=== PATIENT | male | born 1935 | race Caucasian/White ===

== ENCOUNTER → 2020-03-07 10:46 | Outpatient (BNVA) | payer MEDICARE, OTHER, SELFPAY | PROVIDERS: PCP Internal Medicine; Referring Provider Internal Medicine; Visit Provider Surgery | DX: Z45.018 Encounter for adjustment and management of other part of cardiac pacemaker (principal) | CPT/HCPCS: 93288; 99212 ==

== ENCOUNTER 2020-03-24 06:51 | Outpatient (REF) | payer MEDICARE, OTHER, SELFPAY ==
[2020-03-24 07:58] LABS: MANUAL DIFF FLAG NO
[2020-03-24 08:12] LABS: Basophils Percent Auto 0.2 % (0-2); Eosinophils Absolute Auto 0.2 X10*3/uL (0.0-0.4); Eosinophils Percent Auto 3.1 % (0-4); Hematocrit 39.5 % (42-52); Imm Gran Abs Auto 0.01 X10*3/uL (0.00-0.03); Imm Gran Pct Auto 0.2 % (0.0-0.4); Lymphocytes Absolute Auto 1.4 X10*3/uL (1.2-4.9); Mean Corpuscular HGB Conc 32.9 g/dl (31.0-36.0); Mean Corpuscular Hemoglobin 31.4 pg (27.0-33.0); Mean Corpuscular Volume 95.4 fL (80-98); Mean Platelet Volume 11.3 fL (9.4-12.4); Monocytes Absolute Auto 0.5 X10*3/uL (0.1-1.2); Monocytes Percent Auto 8.8 % (2-11); Neutrophils Absolute Auto 3.2 X10*3/uL (2.0-8.3); Neutrophils Percent Auto 61.7 % (45-73); Platelet Count 169 X10*3/uL (160-400); Red Blood Count 4.14 X10*6/uL (4.60-5.80); Red Cell Distribution Width 12.4 % (11.0-16.0); White Blood Count 5.2 X10*3/uL (4.8-10.8)
[2020-03-24 08:59] LABS: Alanine Aminotransferase 22 U/L (0-40); Alkaline Phosphatase 85 U/L (39-117); Anion Gap 12 (12-20); Aspartate Amino Transferase 26 U/L (5-37); Bilirubin Total 0.7 mg/dL (0.0-1.0); Blood Urea Nitrogen 29 mg/dL (9-16); Calcium 8.9 mg/dL (8.4-10.2); Carbon Dioxide 28 mmol/L (22-29); Chloride 102 mmol/L (96-108); Cholesterol 180 mg/dL; Estimated Glomerular Filt Rate 42; Glucose Random 89 mg/dL (60-115); HDL Cholesterol 53 mg/dL; LDL Cholesterol Calculated 109 mg/dl; Potassium 4.2 mmol/l (3.3-5.1); Sodium 138 mmol/L (135-145); Total Protein 6.6 g/dL (6.5-8.0); Triglycerides 93 mg/dL
[2020-03-24 09:43] LABS: Folate 15.1 ng/mL (> or = 4.0); Vitamin B12 1032 pg/mL (200-900)
[2020-03-24 10:18] LABS: T4 Thyroxine 7.3 ug/dL (4.5-12.0); Thyroid Stimulating Hormone 1.14 mIU/mL (0.32-4.0)
== END 2020-03-24 06:52 | disposition home or self-care (01) ==
LOC: HO.LAB 06:51
PROVIDERS: Visit Provider Internal Medicine
DX: I12.9 Hypertensive chronic kidney disease with stage 1 through stage 4 chronic kidney disease, or unspecified chronic kidney disease (principal); N18.30 Chronic kidney disease, stage 3 unspecified; N40.0 Benign prostatic hyperplasia without lower urinary tract symptoms
CPT/HCPCS: 36415; 80053; 80061; 82607; 82746; 84436; 84443; 85025

== ENCOUNTER → 2020-04-07 13:07 | Outpatient (BNVA) | payer MEDICARE, OTHER, SELFPAY | PROVIDERS: PCP Internal Medicine; Referring Provider Internal Medicine; Visit Provider Nurse Practitioner Family | DX: I48.92 Unspecified atrial flutter (principal); I10 Essential (primary) hypertension; Z86.79 Personal history of other diseases of the circulatory system; Z45.018 Encounter for adjustment and management of other part of cardiac pacemaker | CPT/HCPCS: 99212 ==

== ENCOUNTER → 2020-05-06 13:40 | Outpatient (BNVA) | payer MEDICARE, OTHER, SELFPAY | PROVIDERS: PCP Internal Medicine; Referring Provider Internal Medicine; Visit Provider Internal Medicine | DX: I48.0 Paroxysmal atrial fibrillation (principal); I10 Essential (primary) hypertension; Z95.0 Presence of cardiac pacemaker | CPT/HCPCS: 99212 ==

== ENCOUNTER 2020-05-22 10:25 | Outpatient (REF) | payer MEDICARE, OTHER, SELFPAY ==
[2020-05-22 11:01] LABS: MANUAL DIFF FLAG NO
[2020-05-22 11:06] LABS: Basophils Percent Auto 0.2 % (0-2); Eosinophils Absolute Auto 0.1 X10*3/uL (0.0-0.4); Eosinophils Percent Auto 1.1 % (0-4); Hematocrit 40.7 % (42-52); Hemoglobin 13.7 g/dl (14.0-18.0); Imm Gran Abs Auto 0.01 X10*3/uL (0.00-0.03); Imm Gran Pct Auto 0.2 % (0.0-0.4); Lymphocytes Absolute Auto 1.2 X10*3/uL (1.2-4.9); Lymphocytes Percent Auto 26.5 % (20-40); Mean Corpuscular HGB Conc 33.7 g/dl (31.0-36.0); Mean Corpuscular Hemoglobin 31.9 pg (27.0-33.0); Mean Corpuscular Volume 94.9 fL (80-98); Monocytes Absolute Auto 0.4 X10*3/uL (0.1-1.2); Monocytes Percent Auto 9.3 % (2-11); Neutrophils Absolute Auto 2.9 X10*3/uL (2.0-8.3); Neutrophils Percent Auto 62.7 % (45-73); Platelet Count 160 X10*3/uL (160-400); Red Blood Count 4.29 X10*6/uL (4.60-5.80); Red Cell Distribution Width 12.1 % (11.0-16.0); White Blood Count 4.6 X10*3/uL (4.8-10.8)
[2020-05-22 11:23] LABS: Anion Gap 9 (12-20); Blood Urea Nitrogen 26 mg/dL (9-16); Calcium 9.4 mg/dL (8.4-10.2); Carbon Dioxide 31 mmol/L (22-29); Chloride 100 mmol/L (96-108); Estimated Glomerular Filt Rate 40; Glucose Random 116 mg/dL (60-115); Potassium 3.8 mmol/l (3.3-5.1); Sodium 136 mmol/L (135-145)
== END 2020-05-22 10:26 | disposition home or self-care (01) ==
LOC: HO.LAB 10:25
PROVIDERS: PCP Internal Medicine; Visit Provider Nurse Practitioner Family
DX: I48.0 Paroxysmal atrial fibrillation (principal)
CPT/HCPCS: 36415; 80048; 85025

== ENCOUNTER 2020-07-23 07:39 | Outpatient (REF) | payer MEDICARE, SELFPAY ==
[2020-07-23 08:38] LABS: MANUAL DIFF FLAG NO
[2020-07-23 08:45] LABS: Basophils Percent Auto 0.2 % (0-2); Eosinophils Absolute Auto 0.1 X10*3/uL (0.0-0.4); Eosinophils Percent Auto 2.4 % (0-4); Hematocrit 40.3 % (42-52); Hemoglobin 13.9 g/dl (14.0-18.0); Imm Gran Abs Auto 0.01 X10*3/uL (0.00-0.03); Imm Gran Pct Auto 0.2 % (0.0-0.4); Immature Retic Fraction 4.3 % (2.3-13.4); Lymphocytes Absolute Auto 1.2 X10*3/uL (1.2-4.9); Lymphocytes Percent Auto 26.6 % (20-40); Mean Corpuscular HGB Conc 34.5 g/dl (31.0-36.0); Mean Corpuscular Volume 92.6 fL (80-98); Mean Platelet Volume 11.8 fL (9.4-12.4); Monocytes Absolute Auto 0.4 X10*3/uL (0.1-1.2); Monocytes Percent Auto 8.6 % (2-11); Neutrophils Absolute Auto 2.9 X10*3/uL (2.0-8.3); Platelet Count 153 X10*3/uL (160-400); Red Blood Count 4.35 X10*6/uL (4.60-5.80); Red Cell Distribution Width 12.1 % (11.0-16.0); Retic HGB Equivalent 36.5 pg (30.0-35.0); Reticulocyte Percent 1.1 % (0.5-1.8); Reticulocytes Absolute 0.047 X10*6/uL (0.026-0.095); White Blood Count 4.6 X10*3/uL (4.8-10.8)
[2020-07-23 09:21] LABS: Alanine Aminotransferase 19 U/L (0-40); Alkaline Phosphatase 82 U/L (39-117); Anion Gap 13 (12-20); Aspartate Amino Transferase 23 U/L (5-37); Bilirubin Total 0.5 mg/dL (0.0-1.0); Blood Urea Nitrogen 38 mg/dL (9-16); Calcium 9.1 mg/dL (8.4-10.2); Carbon Dioxide 27 mmol/L (22-29); Chloride 102 mmol/L (96-108); Estimated Glomerular Filt Rate 42; Glucose Random 88 mg/dL (60-115); Iron 84 mcg/dL (45-160); Percent Iron Saturation 25 % (15-50); Sodium 138 mmol/L (135-145); Total Iron Binding Capacity 334 mcg/dL (228-428); Total Protein 6.6 g/dL (6.5-8.0); Unsaturated Iron Binding 250 ug/dL
[2020-07-23 09:42] LABS: Ferritin 126 ng/mL (20-250); Vitamin D 25-OH Total 51.2 ng/mL (>30)
[2020-07-24 21:49] LABS: Folate 18.5 ng/mL (> or = 4.0); Vitamin B12 1031 pg/mL (200-900)
== END 2020-07-23 07:40 | disposition home or self-care (01) ==
LOC: HO.LAB 07:39
PROVIDERS: PCP Internal Medicine; Visit Provider Internal Medicine
DX: D64.9 Anemia, unspecified (principal); N18.32 Chronic kidney disease, stage 3b
CPT/HCPCS: 36415; 80053; 82306; 82607; 82728; 82746; 83540; 85025; 85045

== ENCOUNTER 2020-08-28 11:49 | Outpatient (REF) | payer MEDICARE, OTHER, SELFPAY ==
[2020-08-28 13:59] LABS: Albumin Level 4.3 g/dL (3.5-5.0); Anion Gap 15 (12-20); Blood Urea Nitrogen 32 mg/dL (9-16); Calcium 9.1 mg/dL (8.4-10.2); Carbon Dioxide 26 mmol/L (22-29); Chloride 101 mmol/L (96-108); Estimated Glomerular Filt Rate 43; Magnesium 2.3 mg/dL (1.6-2.6); Phosphorus 3.2 mg/dL (2.7-4.5); Potassium 4.1 mmol/L (3.3-5.1); Sodium 138 mmol/L (135-145)
== END 2020-08-28 11:50 | disposition home or self-care (01) ==
LOC: HO.LAB 11:49
PROVIDERS: PCP Internal Medicine; Visit Provider Internal Medicine Hypertension Specialist
DX: I13.10 Hypertensive heart and chronic kidney disease without heart failure, with stage 1 through stage 4 chronic kidney disease, or unspecified chronic kidney disease (principal); N18.9 Chronic kidney disease, unspecified
CPT/HCPCS: 36415; 80051; 82040; 82310; 82565; 83735; 84100; 84520

== ENCOUNTER → 2020-10-28 08:31 | Outpatient (BNVA) | payer MEDICARE, OTHER, SELFPAY | PROVIDERS: Visit Provider Urology | DX: D49.511 Neoplasm of unspecified behavior of right kidney (principal); N40.1 Benign prostatic hyperplasia with lower urinary tract symptoms; R35.0 Frequency of micturition | CPT/HCPCS: 51798; 99212 ==

== ENCOUNTER → 2020-11-10 14:41 | Outpatient (BNVA) | payer MEDICARE, OTHER, SELFPAY | PROVIDERS: PCP Internal Medicine; Referring Provider Internal Medicine; Visit Provider Internal Medicine | DX: I48.0 Paroxysmal atrial fibrillation (principal); I10 Essential (primary) hypertension; Z95.0 Presence of cardiac pacemaker | CPT/HCPCS: 93005; 99212 ==

== ENCOUNTER 2020-12-08 07:47 | Day surgery (SDC) | payer MEDICARE, OTHER, SELFPAY ==
[2020-12-02 10:31] VITALS: BMI 25.0
--- NOTE | 2020-12-02 14:45 | P.CONAN_ITS ---
Documented by User: Sandra Bender 12/02/20 14:52 HPI - Anesthesia Eval Consult details Narrative: 85yo M for Laser Ablation Prostate w/Green Light Per cardiology: Low to intermediate cardiac risk for urological procedrue. Last stress Mibi from 2019 shows normal perfusion. Last echocardiogram from 2019 shows LVEF of 55-60% and no obvious valvular pathology. May hold Xarelto starting 4 days prior to procedure. Pacer in situ (2nd deg HB) PMFSH Active Problems Active Problems: All Active Problems (Updated 12/02/20 @ 10:33 by Victoria Jimenez) Essential hypertension (Acute) Anemia (Acute) Annual physical exam (Acute) Impacted cerumen, bilateral (Acute) Preoperative cardiovascular examination (Acute) Neoplasm of right kidney (Acute) BPH (benign prostatic hyperplasia) (Acute) PAF (paroxysmal atrial fibrillation) (Acute) SSS (sick sinus syndrome) (Acute) Pulmonary nodule (Acute) CKD (chronic kidney disease) (Acute) Pacemaker (Acute) Past Medical History Medical History Atrial fibrillation Blood type O+ BPH (benign prostatic hyperplasia) CKD (chronic kidney disease) COVID-19 vaccine series completed Diverticulitis Erectile dysfunction History of blood transfusion History of cataract History of gastric ulcer Kidney stones 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 Mother Diabetes Cancer Son No problems noted. Son No problems noted. Surgical History Surgical History H/O lithotripsy History of bilateral cataract extraction History of esophagogastroduodenoscopy (EGD) History of prostate surgery History of total left knee replacement History of total right knee replacement Hx of cataract surgery Hx of tonsillectomy Social History Social History Alcohol intake: never Patient Tobacco Use Status: Never used Tobacco Second Hand Smoke Exposure: No Use of substances other than those prescribed or required for medical reasons: No Are you DNR?: No Advance Directives: No Advance Directives Information Provided: No Advance Directives on File: No Meds Allergies Allergy/AdvReac Type Severity Reaction Status Date / Time oxycodone Allergy Unknown hives Verified 12/08/20 08:05 aspirin AdvReac Intermediate bleeding Verified 12/08/20 08:05 Home Medications Medication Instructions Recorded Confirmed Last Taken Type cyanocobalamin (vitamin B-12) 250 250 mcg PO DAILY 04/01/20 12/02/20 Unknown History mcg lozenges multivitamin 1 tab PO DAILY 04/01/20 12/02/20 Unknown History Exam Exam Date and Time: December 02, 2020 1445 Height,Weight and Vital Signs: Height 6 ft Weight 83.915 kg Pertinent Lab Results Pertinent Lab Results: Laboratory Tests 07/23/20 08/28/20 07:55 12:06 WBC 4.6 L Hgb 13.9 L Hct 40.3 L Plt Count 153 L Sodium 138 Potassium 4.1 Chloride 101 Carbon Dioxide 26 BUN 32 H Creatinine 1.53 H Narrative Narrative: Pacer Interr 11/10/20 Dual-chamber device. DDIR. Battery status 12 years. Normal lead parameters. Atrial tachycardia/atrial fibrillation burden is 4.1%, but he is in atrial fibrillation at this time. Episodes are fairly short longest is about 3 hours or so. Today, he went into atrial fibrillation few hours ago. Overall, normal function. EKG 10/2020 atrial fibrillation, V paced at 64/min. Last stress Mibi from 2019 shows normal perfusion. Last echocardiogram from 2019 shows LVEF of 55-60% and no obvious valvular pathology. 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 Mother Diabetes Cancer Son No problems noted. Son No problems noted. Surgical History Surgical History H/O lithotripsy History of bilateral cataract extraction History of esophagogastroduodenoscopy (EGD) History of prostate surgery History of total left knee replacement History of total right knee replacement Hx of cataract surgery Hx of tonsillectomy Social History Social History Alcohol intake: never Patient Tobacco Use Status: Never used Tobacco Second Hand Smoke Exposure: No Use of substances other than those prescribed or required for medical reasons: No Are you DNR?: No Advance Directives: No Advance Directives Information Provided: No Advance Directives on File: No Meds Allergies Allergy/AdvReac Type Severity Reaction Status Date / Time oxycodone Allergy Unknown hives Verified 12/08/20 08:05 aspirin AdvReac Intermediate bleeding Verified 12/08/20 08:05 Home Medications Medication Instructions Recorded Confirmed Last Taken Type cyanocobalamin (vitamin B-12) 250 250 mcg PO DAILY 04/01/20 12/02/20 Unknown History mcg lozenges multivitamin 1 tab PO DAILY 04/01/20 12/02/20 Unknown History Exam Airway Mallampati Class: II TM Dist: >3cm Neck ROM: Limited Assessment and Plan Assessment Anesthesia Assessment: Anesthesia Plan Discussed and Chart Reviewed Final Anesthetic Review NPO: Yes ASA Class: III Final Preanesthetic Review: No Changes in Pt Med Stat, Meds/Allgs Chart Reviewed, Consent Obtained/Reviewed and Anes Risks/Benef Reviewed Patient Risk: Intermediate Procedure Risk: Low Assessment/Block/Sedation in SS: Assess/Block/Sedation-SS Anesthetic Plan Anesthetic Plan: GA Disposition: Standard PACU
[2020-12-08] VITALS (12 sets, daily range): BP systolic 117–145; BP diastolic 55–68; PULSE 60–66; RESP 7–20; TEMP 36.3–36.8; O2SAT 92–98
[2020-12-08] MEDS: Lactated Ringers 1,000 ML 50 ML IVCONT (08:40)
[2020-12-08] MEDS: levoFLOXacin 500 MG TABLET PO (08:43)
--- NOTE | 2020-12-08 09:29 | P.CONAN_ITS ---
[facility] Active Problems Active Problems: All Active Problems (Updated 12/02/20 @ 14:50 by Sandra lafleur) Essential hypertension (Acute) Anemia (Acute) Annual physical exam (Acute) Impacted cerumen, bilateral (Acute) Preoperative cardiovascular examination (Acute) Neoplasm of right kidney (Acute) BPH (benign prostatic hyperplasia) (Acute) PAF (paroxysmal atrial fibrillation) (Acute) SSS (sick sinus syndrome) (Acute) Pulmonary nodule (Acute) CKD (chronic kidney disease) (Acute) Pacemaker (Acute) Past Medical History Medical History Atrial fibrillation Blood type O+ BPH (benign prostatic hyperplasia) CKD (chronic kidney disease) COVID-19 vaccine series completed Diverticulitis Erectile dysfunction History of blood transfusion History of cataract History of gastric ulcer Kidney stones 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 Mother Diabetes Cancer Son No problems noted. Son No problems noted. Surgical History Surgical History H/O lithotripsy History of bilateral cataract extraction History of esophagogastroduodenoscopy (EGD) History of prostate surgery History of total left knee replacement History of total right knee replacement Hx of cataract surgery Hx of tonsillectomy Social History Social History Alcohol intake: never Patient Tobacco Use Status: Never used Tobacco Second Hand Smoke Exposure: No Use of substances other than those prescribed or required for medical reasons: No Are you DNR?: No Advance Directives: No Advance Directives Information Provided: No Advance Directives on File: No Meds Allergies Allergy/AdvReac Type Severity Reaction Status Date / Time oxycodone Allergy Unknown hives Verified 12/08/20 08:05 aspirin AdvReac Intermediate bleeding Verified 12/08/20 08:05 Active Medications: Current Medications Generic Name Dose Route Start Last Admin Trade Name Freq PRN Reason Stop Dose Admin Acetaminophen 650 mg 12/08/20 09:21 Acetaminophen 325 Mg Tablet PO ONCE PRN Pain, Mild (Pain Scale 1-3) Fentanyl 50 mcg 12/08/20 09:21 Fentanyl Citrate/Pf 100 Mcg/2 Ml Vial IVPUSH Q5M PRN Pain, Severe (Pain Scale 7-10) Lactated Ringer's 1,000 mls @ 50 mls/hr 12/08/20 08:00 12/08/20 08:40 Lr IVCONT 50 mls/hr .Q20H KAREN Administration Ondansetron HCl 4 mg 12/08/20 09:21 Ondansetron Hcl 4 Mg/2 Ml Vial IVPUSH ONCE PRN Nausea and Vomiting Oxycodone HCl 5 mg 12/08/20 09:21 Oxycodone Hcl Immed Release 5 Mg Tablet PO ONCE PRN Pain, Severe (Pain Scale 7-10) Home Medications Medication Instructions Recorded Confirmed Last Taken Type cyanocobalamin (vitamin B-12) 250 250 mcg PO DAILY 04/01/20 12/02/20 Unknown History mcg lozenges multivitamin 1 tab PO DAILY 04/01/20 12/02/20 Unknown History Exam Exam Date and Time: December 08, 2020 0929 Height,Weight and Vital Signs: Height 6 ft Weight 83.915 kg Last Vital Signs Temp 97.8 F 12/08/20 08:11 Pulse 66 12/08/20 08:11 Resp 16 12/08/20 08:11 BP 145/63 H 12/08/20 08:11 Pulse Ox 98 12/08/20 08:11 Airway Mallampati Class: II TM Dist: >3cm Neck ROM: Full Assessment and Plan Assessment Anesthesia Assessment: Anesthesia Plan Discussed and Chart Reviewed Final Anesthetic Review NPO: Yes ASA Class: III Final Preanesthetic Review: No Changes in Pt Med Stat, Meds/Allgs Chart Reviewed, Consent Obtained/Reviewed and Anes Risks/Benef Reviewed Patient Risk: Intermediate Procedure Risk: Low Anesthetic Plan Anesthetic Plan: GA Disposition: Standard PACU
--- NOTE | 2020-12-08 09:44 | MHC.SHP ---
Pre-Procedural Eval Section A Date of Service: 12/08/20 Section B Chief Complaint: benign prostatic hyperlasia Details of Present Illness: BPH progressive. Prior TURP Relevant Family History (Specify if Yes): No Relevant Social History: None Present Medications: see Short Stay Collaborative assessment Medical History: No relevant PMH History of Previous Operations: Relevant previous surgery/procedure and date(s) ( prior TURP) Allergies: Allergies Allergy/AdvReac Type Severity Reaction Status Date / Time oxycodone Allergy Unknown hives Verified 12/08/20 08:05 aspirin AdvReac Intermediate bleeding Verified 12/08/20 08:05 Review of Systems Sugical H&P ROS: Negative: Constitution, Cardiovascular, Respiratory, Neurological, Psychiatric, Hem-Onc, Allergic/Immunologic, Gastrointestinal, Genitourinary, Musculoskeletal, Integumentary, Endocrine and Eyes/Ears/Nose/Throat Exam Surgical H&P Exam: Normal: HEENT, Normal: Heart, Normal: Lungs, Normal: Extremities, Normal: Abdomen, Normal: Skin and Normal: Neurological Plan Diagnosis/Plan: Unchanged ( GreenLight laser prostate) I have reviewed the history and physical and performed a pertinent physical examination on my patient. No changes have occurred unless specified.
--- NOTE | 2020-12-08 10:57 | P.OP_ITS ---
Operative Note Operative Note Date of Service: 12/08/20 Narrative: PreOperative Diagnosis: Bladder outlet obstruction Post Operative Diagnosis: Bladder outlet obstruction Procedure: GreenLight laser enucleation of the prostate Surgeon: Dr Serjio Ch Anesthesia: General Indications for procedure: History of bladder outlet obstruction. Prior TURP 15 years ago Procedure: After informed consent was verified the patient was brought to the operating room and placed in a supine position. Anesthesia was administered per protocol. Patient was placed in modified dorsal lithotomy position and prepped and draped in a sterile fashion. Safety pause time-out was confirmed. Antibiotics have been given. Twenty-four Upper Sorbian laser cystoscope was inserted per urethra. No abnormalities found the anterior posterior urethra. The bladder was filled on both ureteric orifices were seen in normal position away from our area of interest. Regrowth was seen on the patient's left side. There was also high riding bladder neck secondary to contracture from the prior TURP. No median lobe. Using a GreenLight laser settings of 80 w incisions were made at the 5 and 7 o'clock position. They were brought from the bladder neck down to the level of the veru. These opened up the constriction that was seen from the prior TURP. We started with the patient's recurrent left lateral lobe. Firstly the 05:00 o'clock groove was further developed. This was moved in the lateral position to undermine the tissue on the lateral side. Focus was then placed on the laser at the 1 o'clock position in developing a secondary groove down to the level of bladder fibers. The intervening tissue between these 2 grooves was removed with a combination of enucleation ablation working from the apex toward the bladder neck. When this was completed debris and pieces of prostate removed from the bladder. Both ureteric orifices were reviewed again in shown to be patent in away from any areas of energy damage. The apical area was reviewed in any stray ooze was controlled. A 22 Upper Sorbian 30 cc balloon Peres catheter was placed over stylet into the bladder. Clear efflux was obtained. 30 cc was placed in the balloon and gentle traction was placed. A snap was used to hold tension once the patient will be moved and transported. Once transportation its finish this novel be removed. A belladonna and opiate suppository was placed for postprocedure pain management. He tolerated procedure well was extubated in the operating and transferred in a stable condition to the recovery area. Total laser energy 59,000 kilojoules. Laser time 9 minutes Pathology: Prostate tissue Drains: Peres catheter
[2020-12-08] MEDS: Acetaminophen 325 MG TABLET 650 MG PO (11:18)
[2020-12-08] MEDS: fentaNYL citrate/PF 100 MCG/2 ML VIAL 50 MCG IVPUSH (11:53)
[2020-12-08] MEDS: Phenazopyridine HCL 100 MG TABLET PO (12:13)
[2020-12-08] MEDS: traMADoL HCL 50 MG TABLET PO (12:14)
== END 2020-12-08 13:35 | disposition home or self-care (01) ==
PROVIDERS: PCP Internal Medicine; Visit Provider Urology
PROC: (CPT 52648; principal; 2020-12-08 10:00)
DX: N40.1 Benign prostatic hyperplasia with lower urinary tract symptoms (principal); N13.8 Other obstructive and reflux uropathy; R35.0 Frequency of micturition; N18.30 Chronic kidney disease, stage 3 unspecified; Z85.528 Personal history of other malignant neoplasm of kidney; Z87.442 Personal history of urinary calculi; I48.0 Paroxysmal atrial fibrillation; I10 Essential (primary) hypertension; I49.5 Sick sinus syndrome; Z95.0 Presence of cardiac pacemaker; Z79.01 Long term (current) use of anticoagulants; Z79.899 Other long term (current) drug therapy; Z88.0 Allergy status to penicillin
CPT/HCPCS: 52648; J1100; J2405; J3010

== ENCOUNTER → 2020-12-11 11:30 | Outpatient (BNVA) | payer MEDICARE, OTHER, SELFPAY | PROVIDERS: PCP Internal Medicine | DX: N40.1 Benign prostatic hyperplasia with lower urinary tract symptoms (principal); R35.0 Frequency of micturition | CPT/HCPCS: 51700; 51798; 99212 ==

== ENCOUNTER 2020-12-18 10:50 | Outpatient (REF) | payer MEDICARE, OTHER, SELFPAY ==
[2020-12-18 12:20] LABS: Hematocrit 40.3 % (42-52); Hemoglobin 13.7 g/dl (14.0-18.0); Mean Corpuscular Hemoglobin 31.4 pg (27.0-33.0); Mean Corpuscular Volume 92.2 fL (80-98); Mean Platelet Volume 11.1 fL (9.4-12.4); Platelet Count 175 X10*3/uL (160-400); Red Blood Count 4.37 X10*6/uL (4.60-5.80); Red Cell Distribution Width 12.4 % (11.0-16.0); White Blood Count 7.2 X10*3/uL (4.8-10.8)
[2020-12-18 12:23] LABS: INTERNATIONAL NORM RATIO 1.3 (0.9-1.1); Prothrombin Time 15.4 SEC (9.9-13.0)
[2020-12-18 12:38] LABS: Anion Gap 17 (12-20); Blood Urea Nitrogen 28 mg/dL (9-16); Calcium 9.1 mg/dL (8.4-10.2); Carbon Dioxide 22 mmol/L (22-29); Chloride 101 mmol/L (96-108); Estimated Glomerular Filt Rate 36; Glucose Random 105 mg/dL (60-115); Sodium 136 mmol/L (135-145)
[2020-12-18 12:54] LABS: Ferritin 229 ng/mL (20-250)
[2020-12-18 16:23] LABS: Glucose Urine UA NEG (NEG); Nitrite Urine POS (NEG); PH 5.5 (5.0-8.0); Specific Gravity - Urine 1.025 (1.005-1.025); UACC Culture Trigger YES; Urine Blood 3+ (NEG); Urine Ketones NEG (NEG); Urine Protein 3+ MG/DL (NEG-TRACE)
[2020-12-18 16:32] LABS: Leukocyte Esterase Urine 3+ (NEG)
[2020-12-18 16:33] LABS: Appearance Urine TURBID; Color Urine RED
[2020-12-18 16:34] LABS: Bacteria Urine 2+ /LPF; RBC Urine TNTC /HPF (0); WBC Urine TNTC /HPF (0-4)
== END 2020-12-18 10:51 | disposition home or self-care (01) ==
LOC: HO.LAB 10:50
PROVIDERS: PCP Physician Assistant; Visit Provider Physician Assistant
DX: R31.0 Gross hematuria (principal); I10 Essential (primary) hypertension; R30.0 Dysuria
CPT/HCPCS: 36415; 80048; 81001; 81003; 82728; 85027; 85610; 87086

== ENCOUNTER → 2020-12-23 11:30 | Outpatient (BNVA) | payer MEDICARE, OTHER, SELFPAY | PROVIDERS: PCP Physician Assistant | DX: N40.1 Benign prostatic hyperplasia with lower urinary tract symptoms (principal); R35.0 Frequency of micturition; N39.0 Urinary tract infection, site not specified; Z79.899 Other long term (current) drug therapy | CPT/HCPCS: 99212 ==

== ENCOUNTER → 2021-01-29 11:42 | Outpatient (BNVA) | payer MEDICARE, OTHER, SELFPAY | PROVIDERS: PCP Physician Assistant; Visit Provider Urology | DX: N39.0 Urinary tract infection, site not specified (principal); N40.1 Benign prostatic hyperplasia with lower urinary tract symptoms; R35.0 Frequency of micturition | CPT/HCPCS: 99212 ==

== ENCOUNTER 2021-03-02 07:39 | Outpatient (REF) | payer MEDICARE, OTHER, SELFPAY ==
[2021-03-02 07:58] LABS: MANUAL DIFF FLAG NO
[2021-03-02 08:30] LABS: Basophils Percent Auto 0.2 % (0-2); Eosinophils Absolute Auto 0.1 X10*3/uL (0.0-0.4); Eosinophils Percent Auto 1.4 % (0-4); Hemoglobin 13.4 g/dl (14.0-18.0); Imm Gran Abs Auto 0.02 X10*3/uL (0.00-0.03); Imm Gran Pct Auto 0.4 % (0.0-0.4); Immature Retic Fraction 6.4 % (2.3-13.4); Lymphocytes Absolute Auto 1.1 X10*3/uL (1.2-4.9); Lymphocytes Percent Auto 22.3 % (20-40); Mean Corpuscular HGB Conc 33.5 g/dl (31.0-36.0); Mean Corpuscular Hemoglobin 31.2 pg (27.0-33.0); Mean Corpuscular Volume 93.2 fL (80-98); Mean Platelet Volume 11.7 fL (9.4-12.4); Monocytes Absolute Auto 0.5 X10*3/uL (0.1-1.2); Monocytes Percent Auto 9.1 % (2-11); Neutrophils Absolute Auto 3.4 X10*3/uL (2.0-8.3); Neutrophils Percent Auto 66.6 % (45-73); Platelet Count 170 X10*3/uL (160-400); Red Blood Count 4.29 X10*6/uL (4.60-5.80); Red Cell Distribution Width 12.9 % (11.0-16.0); Retic HGB Equivalent 34.5 pg (30.0-35.0); Reticulocytes Absolute 0.044 X10*6/uL (0.026-0.095); White Blood Count 5.1 X10*3/uL (4.8-10.8)
[2021-03-02 08:57] LABS: B Type Natriuretic Peptide 62 pg/mL (<100)
[2021-03-02 08:58] LABS: Alanine Aminotransferase 16 U/L (0-40); Alkaline Phosphatase 83 U/L (39-117); Anion Gap 11 (12-20); Aspartate Amino Transferase 20 U/L (5-37); Bilirubin Total 0.7 mg/dL (0.0-1.0); Blood Urea Nitrogen 27 mg/dL (9-16); Calcium 9.7 mg/dL (8.4-10.2); Carbon Dioxide 29 mmol/L (22-29); Chloride 106 mmol/L (96-108); Cholesterol 168 mg/dL; Estimated Glomerular Filt Rate 39; Glucose Random 101 mg/dL (60-115); HDL Cholesterol 47 mg/dL; Iron 86 mcg/dL (45-160); LDL Cholesterol Calculated 99 mg/dl; Percent Iron Saturation 26 % (15-50); Sodium 142 mmol/L (135-145); Total Iron Binding Capacity 337 mcg/dL (228-428); Total Protein 6.6 g/dL (6.5-8.0); Triglycerides 110 mg/dL; Unsaturated Iron Binding 251 ug/dL
[2021-03-02 09:22] LABS: Ferritin 92 ng/mL (20-250); Free T4 (Free Thyroxine) 1.18 ng/dL (0.71-1.85); Thyroid Stimulating Hormone 1.42 uIU/mL (0.32-4.0)
[2021-03-02 09:27] LABS: Folate 18.7 ng/mL (> or = 4.0); Vitamin B12 1274 pg/mL (200-900)
[2021-03-04 03:06] LABS: Calcium (PTHI) 9.8 mg/dL (8.6-10.3); PTHI 30 pg/mL (14-64)
== END 2021-03-02 07:40 | disposition home or self-care (01) ==
LOC: HO.LAB 07:39
PROVIDERS: PCP Internal Medicine; Visit Provider Internal Medicine Hypertension Specialist
DX: I12.9 Hypertensive chronic kidney disease with stage 1 through stage 4 chronic kidney disease, or unspecified chronic kidney disease (principal); N18.31 Chronic kidney disease, stage 3a; E78.00 Pure hypercholesterolemia, unspecified
CPT/HCPCS: 36415; 80053; 80061; 82607; 82728; 82746; 83540; 83880; 83970; 84439; 84443; 85025; 85045

== ENCOUNTER 2021-05-14 14:59 | Outpatient (REF) | payer MEDICARE, OTHER, SELFPAY ==
[2021-05-14 15:29] LABS: COVID-19 Test Negative (Negative); IDNOW Serial# 16C4AD1C
== END 2021-05-14 15:00 | disposition home or self-care (01) ==
LOC: HO.LAB 14:59
PROVIDERS: PCP Internal Medicine; Visit Provider Internal Medicine
DX: Z20.822 Contact with and (suspected) exposure to COVID-19 (principal)
CPT/HCPCS: 36415; 87635; C9803

== ENCOUNTER → 2021-06-18 09:59 | Outpatient (BNVA) | payer MEDICARE, OTHER, SELFPAY | PROVIDERS: PCP Internal Medicine; Referring Provider Internal Medicine; Visit Provider Internal Medicine | DX: I48.0 Paroxysmal atrial fibrillation (principal); I10 Essential (primary) hypertension; G47.33 Obstructive sleep apnea (adult) (pediatric); Z79.01 Long term (current) use of anticoagulants; Z95.0 Presence of cardiac pacemaker | CPT/HCPCS: 99212 ==

== ENCOUNTER 2021-08-20 12:28 | Emergency (ER) | payer MEDICARE, OTHER, SELFPAY ==
--- NOTE | ~2021-08-20 | XR_ITS ---
EXAMINATION: XR CHEST CLINICAL INFORMATION: Weakness. COMPARISON: Most recent chest radiograph dated 02/13/2020. TECHNIQUE: Frontal view of the chest was obtained. FINDINGS: Redemonstration of a left chest wall pacer with its leads in the right heart. No new airspace consolidation. No pleural effusion or pneumothorax. Stable cardiomediastinal silhouette. XR/XR chest 1V IMPRESSION: No acute cardiopulmonary findings.
--- NOTE | 2021-08-20 12:32 | ECG_ITS ---
Test Reason : chest tightness Blood Pressure : / mmHG Vent. Rate : 104 BPM Atrial Rate : 182 BPM P-R Int : 000 ms QRS Dur : 178 ms QT Int : 476 ms P-R-T Axes : 000 -66 109 degrees QTc Int : 625 ms Ventricular-paced rhythm Possible Atrial fibrillation Abnormal ECG When compared with ECG of 18-JAN-2020 11:13, Electronic ventricular pacemaker has replaced Sinus rhythm Referred By: Generic ED Physician Electronically Signed By:CHARLY SCHULTE MD
[2021-08-20 12:35] VITALS: BP 159/68; PULSE 66; RESP 18; TEMP 36.4; O2SAT 98; BMI 26.4
[2021-08-20 12:59] LABS: MANUAL DIFF FLAG NO
[2021-08-20 13:05] LABS: Basophils Percent Auto 0.1 % (0-2); Eosinophils Percent Auto 0.1 % (0-4); Hematocrit 41.4 % (42.0-52.0); Hemoglobin 13.9 g/dl (14.0-18.0); Imm Gran Abs Auto 0.03 X10*3/uL (0.00-0.03); Imm Gran Pct Auto 0.4 % (0.0-0.4); Lymphocytes Absolute Auto 0.9 X10*3/uL (1.2-4.9); Lymphocytes Percent Auto 13.6 % (20-40); Mean Corpuscular HGB Conc 33.6 g/dl (31.0-36.0); Mean Corpuscular Hemoglobin 31.4 pg (27.0-33.0); Mean Corpuscular Volume 93.7 fL (80.0-98.0); Mean Platelet Volume 11.7 fL (9.4-12.4); Monocytes Absolute Auto 0.4 X10*3/uL (0.1-1.2); Monocytes Percent Auto 5.6 % (2-11); Neutrophils Absolute Auto 5.5 x10*3/uL (2.0-8.3); Neutrophils Percent Auto 80.2 % (45-73); Platelet Count 166 X10*3/uL (160-400); Red Blood Count 4.42 X10*6/uL (4.60-5.80); Red Cell Distribution Width 12.8 % (11.0-16.0); White Blood Count 6.9 X10*3/uL (4.8-10.8)
[2021-08-20 13:18] LABS: COVID-19 Test Negative (Negative)
[2021-08-20 13:22] LABS: Troponin-I High Sensitivity 9.4 ng/L (<3.5-35.0)
[2021-08-20 13:23] LABS: Anion Gap 14 (12-20); Blood Urea Nitrogen 30 mg/dL (9-16); Calcium 10.2 mg/dL (8.4-10.2); Carbon Dioxide 27 mmol/L (22-29); Chloride 102 mmol/L (96-108); Creatinine Clr Calc Pharmacy 34.6; Estimated Glomerular Filt Rate 39; Glucose Random 188 mg/dL (60-115); Potassium 4.5 mmol/L (3.3-5.1); Sodium 138 mmol/L (135-145)
[2021-08-20 13:26] LABS: INTERNATIONAL NORM RATIO 2.1 (0.9-1.1); Prothrombin Time 24.2 SEC (9.9-13.0)
--- NOTE | 2021-08-20 16:26 | ED_ITS ---
HPI - General Adult General Chief complaint: General Medical Stated complaint: Multiple Complaints Time Seen by Provider: 08/20/21 16:26 Source: patient Limitations: no limitations History of Present Illness HPI narrative: This is an 85-year-old male who complains of weakness and chills today. He notes he has been somewhat weak recently but feels much worse today in terms of feeling chilled. He denies any fever. Called his primary care physician but could not be seen today. He denies any headache. He denies any chest pain, shortness of breath or cough. He does sometimes have shortness of breath with exertion but notes no change today. He denies abdominal pain. Denies any nausea vomiting. His bowel movements have been regular. He does get up to urinate at night and has had a prostate procedure in the past, but denies any dysuria. He denies any lower extremity swelling. He has had some tingling in his legs. Related Data Home Medications Medication Instructions Recorded Confirmed cyanocobalamin (vitamin B-12) 250 250 mcg PO DAILY 04/01/20 06/18/21 mcg lozenges multivitamin 1 tab PO DAILY 04/01/20 06/18/21 Previous Rx's Medication Instructions Recorded hydrochlorothiazide 12.5 mg tablet 12.5 mg PO DAILY 90 Days #90 tab 10/30/20 rivaroxaban 15 mg tablet (Xarelto) 15 mg PO DAILY #90 tab 07/17/21 tamsulosin 0.4 mg capsule 0.4 mg PO BEDTIME 30 Days #90 cap 08/11/21 Allergies Allergy/AdvReac Type Severity Reaction Status Date / Time oxycodone Allergy Unknown hives Verified 06/18/21 10:20 aspirin AdvReac Intermediate bleeding Verified 06/18/21 10:20 Review of Systems Review of Systems: Yes all other systems are reviewed and are negative Constitutional: Constitutional: Reports as per HPI, Reports chills, Reports fatigue and Denies fever(s) Eyes: Eyes: Reports as per HPI and Reports no additional eye complaints ENT: Reports system reviewed and no additional complaints, except as documented, Reports as per HPI, Denies nasal congestion, Denies nasal discharge and Denies sore throat Cardiovascular: Cardiovascular: Reports as per HPI, Denies chest pain and Denies dyspnea Respiratory: Respiratory: Reports as per HPI, Denies cough and Denies dyspnea Gastrointestinal: Gastrointestinal: Reports as per HPI, Denies abdominal pain, Denies diarrhea and Denies vomiting Genitourinary: Genitourinary: Reports as per HPI, Denies hematuria, Denies dysuria and Denies urinary frequency Musculoskeletal: Musculoskeletal: Reports no additional musculoskeletal complaints and Denies numbness Integumentary/Breasts: Skin/Breast: Reports as per HPI and Denies rash Neurologic: Reports as per HPI, Denies focal weakness, Denies numbness and Reports paresthesias Psychiatric: Psychiatric: Reports no additional psychiatric complaints and Reports as per HPI Endocrine: Endocrine: Reports no additional endocrine complaints, Reports as per HPI and Reports fatigue Hematologic/Lymphatic: Hematologic/Lymphatic: Reports no additional hematologic/lymphatic complaints, Reports as per HPI and Reports other (No peripheral edema) [facility] Past Medical History Medical History Atrial fibrillation Blood type O+ BPH (benign prostatic hyperplasia) CKD (chronic kidney disease) COVID-19 vaccine series completed Diverticulitis Erectile dysfunction History of blood transfusion History of cataract History of gastric ulcer Kidney stones 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 Mother Diabetes Cancer Son No problems noted. Son No problems noted. Social History Social History Housing: House Alcohol intake: never Patient Tobacco Use Status: Never used Tobacco e-Cigarette/Vaping Use: Never Used Second Hand Smoke Exposure: No Advance Directives: Yes Advance Directives on File: Yes Advance Directives Date on File: 12/08/20 service: No Current occupational status: retired Physical Exam ED Vital Signs: Vital Signs - 24 hr 08/20/21 12:35 08/20/21 16:35 08/20/21 18:52 Temperature 97.6 F 98.3 F Pulse Rate 66 69 66 Respiratory Rate 18 16 18 Blood Pressure 159/68 H 188/73 H 156/83 H Pulse Oximetry 98 98 98 BMI result Body Mass Index 26.4 Medical Decision Making MDM Narrative Medical decision making narrative: 85-year-old male with a feeling of weakness and chills. Patient appeared well on exam. Laboratory workup was unremarkable with no sign infection, anemia, electrolyte abnormality, or hypothyroidism. Patient is safe for outpatient follow-up Lab Data Lab results reviewed: Yes I reviewed the patient's lab results. Result diagrams: 08/20/21 12:48 08/20/21 12:48 Labs: Lab Results 08/20/21 08/20/21 08/20/21 Range/Units 12:48 12:48 12:48 WBC 6.9 (4.8-10.8) X10*3/uL RBC 4.42 L (4.60-5.80) X10*6/uL Hgb 13.9 L (14.0-18.0) g/dl Hct 41.4 L (42.0-52.0) % MCV 93.7 (80.0-98.0) fL MCH 31.4 (27.0-33.0) pg MCHC 33.6 (31.0-36.0) g/dl RDW 12.8 (11.0-16.0) % Plt Count 166 (160-400) X10*3/uL MPV 11.7 (9.4-12.4) fL Immature Gran % (Auto) 0.4 (0.0-0.4) % Neut % (Auto) 80.2 H (45-73) % Lymph % (Auto) 13.6 L (20-40) % [place] % (Auto) 5.6 (2-11) % Eos % (Auto) 0.1 (0-4) % Baso % (Auto) 0.1 (0-2) % Lymph # (Auto) 0.9 L (1.2-4.9) X10*3/uL [place] # (Auto) 0.4 (0.1-1.2) X10*3/uL Eos # (Auto) 0.0 (0.0-0.4) X10*3/uL Baso # (Auto) 0.0 (0.0-0.2) X10*3/uL Abs Immat Gran (auto) 0.03 (0.00-0.03) X10*3/uL Absolute Neuts (auto) 5.5 (2.0-8.3) x10*3/uL Absolute Nucleated RBC 0.000 (0.0-0.012) X10*3/uL Nucleated RBC % (auto) 0.0 (0.0-0.2) /100WBC PT 24.2 H (9.9-13.0) SEC INR 2.1 H (0.9-1.1) Sodium 138 (135-145) mmol/L Potassium 4.5 (3.3-5.1) mmol/L Chloride 102 (96-108) mmol/L Carbon Dioxide 27 (22-29) mmol/L Anion Gap 14 (12-20) BUN 30 H (9-16) mg/dL Creatinine 1.68 H (0.5-1.4) mg/dL Estim Creat Clear Calc 34.6 Estimated GFR 39 Random Glucose 188 H D (60-115) mg/dL Calcium 10.2 (8.4-10.2) mg/dL Troponin I High Sens (<3.5-35.0) ng/L TSH Cancelled Urine Color Urine Appearance Urine pH (5.0-8.0) Ur Specific [place] (1.005-1.025) Urine Protein (NEG-TRACE) MG/DL Urine Glucose (UA) (NEG) MG/DL Urine Ketones (NEG) MG/DL Urine Blood (NEG) Urine Nitrite (NEG) Ur Leukocyte Esterase (NEG) Urine RBC (0) /HPF Urine WBC (0-4) /HPF Ur Squamous Epith Cells /LPF Urine Bacteria /LPF COVID-19 (JAMES) (Negative) COVID-19 Clin Com 08/20/21 08/20/21 08/20/21 Range/Units 12:48 12:48 17:43 WBC (4.8-10.8) X10*3/uL RBC (4.60-5.80) X10*6/uL Hgb (14.0-18.0) g/dl Hct (42.0-52.0) % MCV (80.0-98.0) fL MCH (27.0-33.0) pg MCHC (31.0-36.0) g/dl RDW (11.0-16.0) % Plt Count (160-400) X10*3/uL MPV (9.4-12.4) fL Immature Gran % (Auto) (0.0-0.4) % Neut % (Auto) (45-73) % Lymph % (Auto) (20-40) % [place] % (Auto) (2-11) % Eos % (Auto) (0-4) % Baso % (Auto) (0-2) % Lymph # (Auto) (1.2-4.9) X10*3/uL [place] # (Auto) (0.1-1.2) X10*3/uL Eos # (Auto) (0.0-0.4) X10*3/uL Baso # (Auto) (0.0-0.2) X10*3/uL Abs Immat Gran (auto) (0.00-0.03) X10*3/uL Absolute Neuts (auto) (2.0-8.3) x10*3/uL Absolute Nucleated RBC (0.0-0.012) X10*3/uL Nucleated RBC % (auto) (0.0-0.2) /100WBC PT (9.9-13.0) SEC INR (0.9-1.1) Sodium (135-145) mmol/L Potassium (3.3-5.1) mmol/L Chloride (96-108) mmol/L Carbon Dioxide (22-29) mmol/L Anion Gap (12-20) BUN (9-16) mg/dL Creatinine (0.5-1.4) mg/dL Estim Creat Clear Calc Estimated GFR Random Glucose (60-115) mg/dL Calcium (8.4-10.2) mg/dL Troponin I High Sens 9.4 (<3.5-35.0) ng/L TSH 0.90 Urine Color Urine Appearance Urine pH (5.0-8.0) Ur Specific [place] (1.005-1.025) Urine Protein (NEG-TRACE) MG/DL Urine Glucose (UA) (NEG) MG/DL Urine Ketones (NEG) MG/DL Urine Blood (NEG) Urine Nitrite (NEG) Ur Leukocyte Esterase (NEG) Urine RBC (0) /HPF Urine WBC (0-4) /HPF Ur Squamous Epith Cells /LPF Urine Bacteria /LPF COVID-19 (JAMES) Negative (Negative) COVID-19 Clin Com See Note 08/20/21 Range/Units 17:54 WBC (4.8-10.8) X10*3/uL RBC (4.60-5.80) X10*6/uL Hgb (14.0-18.0) g/dl Hct (42.0-52.0) % MCV (80.0-98.0) fL MCH (27.0-33.0) pg MCHC (31.0-36.0) g/dl RDW (11.0-16.0) % Plt Count (160-400) X10*3/uL MPV (9.4-12.4) fL Immature Gran % (Auto) (0.0-0.4) % Neut % (Auto) (45-73) % Lymph % (Auto) (20-40) % [place] % (Auto) (2-11) % Eos % (Auto) (0-4) % Baso % (Auto) (0-2) % Lymph # (Auto) (1.2-4.9) X10*3/uL [place] # (Auto) (0.1-1.2) X10*3/uL Eos # (Auto) (0.0-0.4) X10*3/uL Baso # (Auto) (0.0-0.2) X10*3/uL Abs Immat Gran (auto) (0.00-0.03) X10*3/uL Absolute Neuts (auto) (2.0-8.3) x10*3/uL Absolute Nucleated RBC (0.0-0.012) X10*3/uL Nucleated RBC % (auto) (0.0-0.2) /100WBC PT (9.9-13.0) SEC INR (0.9-1.1) Sodium (135-145) mmol/L Potassium (3.3-5.1) mmol/L Chloride (96-108) mmol/L Carbon Dioxide (22-29) mmol/L Anion Gap (12-20) BUN (9-16) mg/dL Creatinine (0.5-1.4) mg/dL Estim Creat Clear Calc Estimated GFR Random Glucose (60-115) mg/dL Calcium (8.4-10.2) mg/dL Troponin I High Sens (<3.5-35.0) ng/L TSH Urine Color YELLOW Urine Appearance CLEAR Urine pH 5.5 (5.0-8.0) Ur Specific [place] 1.020 (1.005-1.025) Urine Protein NEG (NEG-TRACE) MG/DL Urine Glucose (UA) NEG (NEG) MG/DL Urine Ketones NEG (NEG) MG/DL Urine Blood TRACE (NEG) Urine Nitrite NEG (NEG) Ur Leukocyte Esterase NEG (NEG) Urine RBC 0-2 (0) /HPF Urine WBC 0 (0-4) /HPF Ur Squamous Epith Cells NONE /LPF Urine Bacteria NONE /LPF COVID-19 ([facility]AMES) (Negative) COVID-19 Clin Com Imaging Data Chest x-ray: Radiologist's impression: No acute pathology ECG Data Attestation: I personally reviewed and interpreted this ECG as follows: Interpretation: Ventricular paced rhythm with a rate of 104. Apparent underlying atrial flutter. Discharge Plan Discharge Clinical Impression: Fatigue, Chills Patient Disposition: Home, Self-Care Instructions: Fatigue (ED) Additional Instructions: Drink plenty of fluids. Follow-up with your primary care physician as needed. Continue current medications. Return for any new or worsened symptoms such as fever, worsened weakness Prescriptions: No Action hydrochlorothiazide 12.5 mg tablet 12.5 mg PO DAILY 90 Days Qty: 90 3RF Xarelto 15 mg tablet 15 mg PO DAILY Qty: 90 3RF tamsulosin 0.4 mg capsule 0.4 mg PO BEDTIME 30 Days Qty: 90 0RF multivitamin Tablet 1 tab PO DAILY 0RF cyanocobalamin (vitamin B-12) 250 mcg lozenge 250 mcg PO DAILY 0RF Interventions: ED Discharge Assessment Last Done: 08/20/21 18:52 Discharge Date/Time: 08/20/21 18:54
[2021-08-20 16:35] VITALS: BP 188/73; PULSE 69; RESP 16; TEMP 36.8; O2SAT 98
[2021-08-20 18:09] LABS: Appearance Urine CLEAR; Color Urine YELLOW; Glucose Urine UA NEG (NEG); Leukocyte Esterase Urine NEG (NEG); Nitrite Urine NEG (NEG); PH 5.5 (5.0-8.0); UACC Culture Trigger NO; Urine Blood TRACE (NEG); Urine Ketones NEG (NEG); Urine Protein NEG (NEG-TRACE)
[2021-08-20 18:25] LABS: RBC Urine 0-2 /HPF (0); WBC Urine 0 /HPF (0-4)
[2021-08-20 18:52] VITALS: BP 156/83; PULSE 66; RESP 18; O2SAT 98
--- NOTE | 2021-08-20 18:53 | PC.NURSE ---
patient discharged at this time, frustrated that nothing was found wrong. patient informed of need for follow up. no distress on departure
== END 2021-08-20 18:54 | disposition home or self-care (01) ==
PROVIDERS: Emergency Provider Emergency Medicine; PCP Internal Medicine
DX: R53.83 Other fatigue (principal); R68.83 Chills (without fever); R53.1 Weakness; Z20.822 Contact with and (suspected) exposure to COVID-19; I12.9 Hypertensive chronic kidney disease with stage 1 through stage 4 chronic kidney disease, or unspecified chronic kidney disease; N18.9 Chronic kidney disease, unspecified; D49.511 Neoplasm of unspecified behavior of right kidney; I48.0 Paroxysmal atrial fibrillation; Z95.0 Presence of cardiac pacemaker
CPT/HCPCS: 36415; 71045; 80048; 81001; 84443; 84484; 85025; 85610; 87635; 93005; 99283; 99284

== ENCOUNTER 2021-09-01 11:06 | Outpatient (REF) | payer MEDICARE, OTHER, SELFPAY ==
[2021-09-01 11:34] LABS: MANUAL DIFF FLAG NO
[2021-09-01 11:51] LABS: Basophils Percent Auto 0.2 % (0-2); Eosinophils Percent Auto 0.7 % (0-4); Hemoglobin 12.9 g/dl (14.0-18.0); Imm Gran Abs Auto 0.02 X10*3/uL (0.00-0.03); Imm Gran Pct Auto 0.3 % (0.0-0.4); Lymphocytes Percent Auto 16.1 % (20-40); Mean Corpuscular HGB Conc 33.9 g/dl (31.0-36.0); Mean Corpuscular Hemoglobin 31.5 pg (27.0-33.0); Mean Corpuscular Volume 92.9 fL (80.0-98.0); Mean Platelet Volume 10.8 fL (9.4-12.4); Monocytes Absolute Auto 0.5 X10*3/uL (0.1-1.2); Monocytes Percent Auto 7.6 % (2-11); Neutrophils Absolute Auto 4.6 x10*3/uL (2.0-8.3); Neutrophils Percent Auto 75.1 % (45-73); Platelet Count 192 X10*3/uL (160-400); Red Blood Count 4.09 X10*6/uL (4.60-5.80); Red Cell Distribution Width 12.1 % (11.0-16.0); White Blood Count 6.1 X10*3/uL (4.8-10.8)
[2021-09-01 12:28] LABS: Anion Gap 11 (12-20); Blood Urea Nitrogen 29 mg/dL (9-16); Calcium 9.8 mg/dL (8.4-10.2); Carbon Dioxide 28 mmol/L (22-29); Chloride 102 mmol/L (96-108); Estimated Glomerular Filt Rate 41; Potassium 4.3 mmol/L (3.3-5.1); Sodium 137 mmol/L (135-145)
== END 2021-09-01 11:07 | disposition home or self-care (01) ==
LOC: HO.LAB 11:06
PROVIDERS: PCP Internal Medicine; Visit Provider Internal Medicine Hypertension Specialist
DX: N18.31 Chronic kidney disease, stage 3a (principal)
CPT/HCPCS: 36415; 80051; 82310; 82565; 84520; 85025

== ENCOUNTER 2021-09-18 12:25 | Emergency (ER) | payer MEDICARE, OTHER, SELFPAY ==
[2021-09-18 12:28] VITALS: BP 165/66; PULSE 93; RESP 18; TEMP 36.4; O2SAT 98; BMI 24.1
[2021-09-18 13:06] LABS: MANUAL DIFF FLAG NO
[2021-09-18 13:13] LABS: INTERNATIONAL NORM RATIO 1.8 (0.9-1.1); Prothrombin Time 20.6 SEC (9.9-13.0)
[2021-09-18 13:16] LABS: Partial Thromboplastin Time 51.3 SEC (24.1-38.0)
[2021-09-18 13:21] LABS: Basophils Percent Auto 0.1 % (0-2); Eosinophils Percent Auto 0.1 % (0-4); Hematocrit 40.6 % (42.0-52.0); Hemoglobin 13.8 g/dl (14.0-18.0); Imm Gran Abs Auto 0.02 X10*3/uL (0.00-0.03); Imm Gran Pct Auto 0.2 % (0.0-0.4); Lymphocytes Absolute Auto 0.8 X10*3/uL (1.2-4.9); Lymphocytes Percent Auto 10.3 % (20-40); Mean Corpuscular Hemoglobin 31.4 pg (27.0-33.0); Mean Corpuscular Volume 92.3 fL (80.0-98.0); Mean Platelet Volume 11.9 fL (9.4-12.4); Monocytes Absolute Auto 0.4 X10*3/uL (0.1-1.2); Monocytes Percent Auto 4.6 % (2-11); Neutrophils Absolute Auto 6.9 x10*3/uL (2.0-8.3); Neutrophils Percent Auto 84.7 % (45-73); Platelet Count 142 X10*3/uL (160-400); Red Cell Distribution Width 12.3 % (11.0-16.0); White Blood Count 8.2 X10*3/uL (4.8-10.8)
[2021-09-18 13:32] LABS: Alanine Aminotransferase 15 U/L (0-40); Alkaline Phosphatase 82 U/L (39-117); Anion Gap 12 (12-20); Aspartate Amino Transferase 23 U/L (5-37); Bilirubin Total 0.8 mg/dL (0.0-1.0); Blood Urea Nitrogen 32 mg/dL (9-16); Calcium 9.6 mg/dL (8.4-10.2); Carbon Dioxide 26 mmol/L (22-29); Chloride 102 mmol/L (96-108); Creatinine Clr Calc Pharmacy 36.8; Estimated Glomerular Filt Rate 43; Glucose Random 115 mg/dL (60-115); Potassium 4.2 mmol/L (3.3-5.1); Sodium 136 mmol/L (135-145); Total Protein 6.9 g/dL (6.5-8.0)
--- NOTE | 2021-09-18 16:05 | ED_ITS ---
HPI - General Adult General Chief complaint: General Medical Stated complaint: Nose bleed, on blood thinners Time Seen by Provider: 09/18/21 16:05 Source: patient Mode of arrival: ambulatory Limitations: no limitations History of Present Illness HPI narrative: Patient presents to the emergency department for evaluation of left nares epistaxis with onset at 08:30. He reports the cause is unknown. He purchased an [id number] blood stop, cellulose gauze, She packed into his nose. By 30 he reports that the bleeding continued therefore he came to the emergency department. States that the bleeding has since stopped. He does report that he is on Xarelto, but is unable to give me clear reason as to why. Denies any head trauma, falls, headache, vision changes, lightheadedness, dizziness neck pain, chest pain, palpitations, shortness of breath, dyspnea on exertion, nausea, vomiting, abdominal pain, hematuria, bloody or dark stools, generalized weakness. Related Data Home Medications Medication Instructions Recorded Confirmed cyanocobalamin (vitamin B-12) 250 250 mcg PO DAILY 04/01/20 06/18/21 mcg lozenges multivitamin 1 tab PO DAILY 04/01/20 06/18/21 Previous Rx's Medication Instructions Recorded hydrochlorothiazide 12.5 mg tablet 12.5 mg PO DAILY 90 Days #90 tab 10/30/20 rivaroxaban 15 mg tablet (Xarelto) 15 mg PO DAILY #90 tab 07/17/21 tamsulosin 0.4 mg capsule 0.4 mg PO BEDTIME 30 Days #90 cap 08/11/21 Allergies Allergy/AdvReac Type Severity Reaction Status Date / Time oxycodone Allergy Unknown hives Verified 06/18/21 10:20 aspirin AdvReac Intermediate bleeding Verified 06/18/21 10:20 Review of Systems Review of Systems: Constitutional: No weight loss, fever, chills, weakness or fatigue. Nose: positive epistaxis Skin: No rash or itching. Cardiovascular: No chest pain, chest pressure or chest discomfort. No palpitations or pedal edema. Respiratory: No shortness of breath, cough or sputum production. Gastrointestinal: No anorexia, nausea, vomiting or diarrhea. No abdominal pain or blood in stool. Genitourinary: No burning micturition. No urinary frequency or incontinence. No hematuria Musculoskeletal: No muscle pain, back pain, joint pain or stiffness. Neurological: no dizziness. No lightheadedness. No syncope. Psychiatric: No depression or anxiety. Yes all other systems are reviewed and are negative [facility] Past Medical History Attestation statement: The following information was validated with the patient. Source: old records reviewed Medical History Atrial fibrillation Blood type O+ BPH (benign prostatic hyperplasia) CKD (chronic kidney disease) COVID-19 vaccine series completed Diverticulitis Erectile dysfunction History of blood transfusion History of cataract History of gastric ulcer Kidney stones 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 Mother Diabetes Cancer Son No problems noted. Son No problems noted. Social History Social History Housing: House Alcohol intake: never Patient Tobacco Use Status: Never used Tobacco e-Cigarette/Vaping Use: Never Used Second Hand Smoke Exposure: No Advance Directives: Yes Advance Directives on File: Yes Advance Directives Date on File: 12/08/20 service: No Current occupational status: retired Physical Exam ED Vital Signs: Vital Signs - 24 hr 09/18/21 12:28 09/18/21 16:31 Temperature 97.6 F Pulse Rate 93 66 Respiratory Rate 18 16 Blood Pressure 165/66 H 154/65 H Pulse Oximetry 98 99 BMI result Body Mass Index 24.1 Vital signs have been reviewed as normal and appeared to be correct. Blood pressure elevated 165/66? Heart rate normal.? Respiration rate normal. Temperature normal.? Oxygen saturation normal. Appearance: Alert.?Oriented to person, place and time. No acute distress.?Normal affect. Eyes: Pupils equal, round and reactive to light.? ENT: Pharynx normal.?? left nare packed with gauze, no active bleeding. Neck: Normal inspection.? Neck supple.?? CVS: Heart sounds normal. Normal heart rate and rhythm.? Pulses normal.?? Respiratory: No respiratory distress.? Lung sounds clear to auscultation bilaterally?? Abdomen: Soft and non-tender. Normoactive bowel sounds. Skin: Skin warm and dry.? Normal skin color.? Extremities: No lower extremity edema.? Neuro: Moves all extremities spontaneously. Sensation intact bilaterally. CN II- XII intact. No focal neuro deficits. Ambulates with normal steady gait. Course Course Course Narrative: Patient is an 86-year-old male with a history of atrial fibrillation on Xarelto, BPH, CKD, diverticulitis, renal calculi, osteoarthritis, renal cancer, pulmonary nodule. He presents to the emergency department for evaluation of epistaxis that occurred this morning spontaneously. At the time of my exam there is no active bleeding, there is a gauze inserted into the left nare. Basic labs be obtained to evaluate coagulation studies, CBC, BMP. suspect the epistaxis is due to anticoagulation usage, as there is no trauma or foreign body. Reevaluation(s) Reevaluation #1: At this time the continues to be no active bleeding, cause inserted into an air soak with normal saline and removed for further evaluation. No active site of bleeding noted, no bleeding to the posterior pharynx. Patient without nausea, vomiting, or other signs of bleeding. No septal hematoma. Patient to be monitored for the next hours for acute bleeding, and if hemostasis continues, will discharge patient home with outpatient follow-up with PCP, Patient to continue taking all medications as currently prescribed, discussed return precautions to the emergency department, all questions were answered. Time: 16:30 Medical Decision Making Lab Data Result diagrams: 09/18/21 12:58 09/18/21 12:58 Labs: Lab Results 09/18/21 09/18/21 09/18/21 Range/Units 12:58 12:58 12:58 WBC 8.2 (4.8-10.8) X10*3/uL RBC 4.40 L (4.60-5.80) X10*6/uL Hgb 13.8 L (14.0-18.0) g/dl Hct 40.6 L (42.0-52.0) % MCV 92.3 (80.0-98.0) fL MCH 31.4 (27.0-33.0) pg MCHC 34.0 (31.0-36.0) g/dl RDW 12.3 (11.0-16.0) % Plt Count 142 L D (160-400) X10*3/uL MPV 11.9 (9.4-12.4) fL Immature Gran % (Auto) 0.2 (0.0-0.4) % Neut % (Auto) 84.7 H (45-73) % Lymph % (Auto) 10.3 L (20-40) % [place] % (Auto) 4.6 (2-11) % Eos % (Auto) 0.1 (0-4) % Baso % (Auto) 0.1 (0-2) % Lymph # (Auto) 0.8 L (1.2-4.9) X10*3/uL [place] # (Auto) 0.4 (0.1-1.2) X10*3/uL Eos # (Auto) 0.0 (0.0-0.4) X10*3/uL Baso # (Auto) 0.0 (0.0-0.2) X10*3/uL Abs Immat Gran (auto) 0.02 (0.00-0.03) X10*3/uL Absolute Neuts (auto) 6.9 (2.0-8.3) x10*3/uL Absolute Nucleated RBC 0.000 (0.0-0.012) X10*3/uL Nucleated RBC % (auto) 0.0 (0.0-0.2) /100WBC PT 20.6 H (9.9-13.0) SEC INR 1.8 H (0.9-1.1) APTT 51.3 H (24.1-38.0) SEC Sodium 136 (135-145) mmol/L Potassium 4.2 (3.3-5.1) mmol/L Chloride 102 (96-108) mmol/L Carbon Dioxide 26 (22-29) mmol/L Anion Gap 12 (12-20) BUN 32 H (9-16) mg/dL Creatinine 1.55 H (0.5-1.4) mg/dL Estim Creat Clear Calc 36.8 Estimated GFR 43 Random Glucose 115 D (60-115) mg/dL Calcium 9.6 (8.4-10.2) mg/dL Total Bilirubin 0.8 (0.0-1.0) mg/dL AST 23 (5-37) U/L ALT 15 (0-40) U/L Alkaline Phosphatase 82 (39-117) U/L Total Protein 6.9 (6.5-8.0) g/dL Albumin 4.0 (3.5-5.0) g/dL Discharge Plan Discharge Clinical Impression: Epistaxis Patient Disposition: Home, Self-Care Additional Instructions: At this time your bleeding has stopped. Please continue taking all of your medications as prescribed by your doctors at this time. Follow-up with your primary care provider within 3 days. Please return to the emergency department with any recurrent nose bleeding, or any new or worsening symptoms or concerns such as dizziness, lightheadedness, headache, vision changes, chest pain, palpitations, shortness breath, difficulty breathing generalized weakness, falls, hematuria, or any other source of bleeding. Prescriptions: No Action hydrochlorothiazide 12.5 mg tablet 12.5 mg PO DAILY 90 Days Qty: 90 3RF Xarelto 15 mg tablet 15 mg PO DAILY Qty: 90 3RF tamsulosin 0.4 mg capsule 0.4 mg PO BEDTIME 30 Days Qty: 90 0RF multivitamin Tablet 1 tab PO DAILY 0RF cyanocobalamin (vitamin B-12) 250 mcg lozenge 250 mcg PO DAILY 0RF
[2021-09-18 16:31] VITALS: BP 154/65; PULSE 66; RESP 16; O2SAT 99
== END 2021-09-18 17:55 | disposition home or self-care (01) ==
PROVIDERS: Emergency Provider Emergency Medicine Emergency Medical Services; PCP Internal Medicine
DX: R04.0 Epistaxis (principal); Z79.01 Long term (current) use of anticoagulants; Z79.899 Other long term (current) drug therapy
CPT/HCPCS: 36415; 80053; 85025; 85610; 85730; 99283; 99284

== ENCOUNTER → 2021-10-02 15:04 | Outpatient (BNVA) | payer MEDICARE, OTHER, SELFPAY | PROVIDERS: PCP Internal Medicine; Visit Provider Urology | DX: D49.511 Neoplasm of unspecified behavior of right kidney (principal) | CPT/HCPCS: 51798; 99212 ==

== ENCOUNTER → 2021-11-09 10:08 | Outpatient (REF) | payer MEDICARE, SELFPAY | LOC: HO.SL 10:08 | PROVIDERS: PCP Internal Medicine; Visit Provider Internal Medicine | DX: G47.33 Obstructive sleep apnea (adult) (pediatric) (principal); G47.10 Hypersomnia, unspecified; I10 Essential (primary) hypertension | CPT/HCPCS: 95806 ==

== ENCOUNTER → 2022-01-04 12:53 | Outpatient (BNVA) | payer BC, MEDICARE, SELFPAY | PROVIDERS: PCP Internal Medicine; Referring Provider Internal Medicine; Visit Provider Internal Medicine | DX: Z45.018 Encounter for adjustment and management of other part of cardiac pacemaker (principal); I48.0 Paroxysmal atrial fibrillation; G47.33 Obstructive sleep apnea (adult) (pediatric); G47.9 Sleep disorder, unspecified | CPT/HCPCS: 93280; 99212 ==

== ENCOUNTER → 2022-01-27 11:01 | Outpatient (BNVA) | payer BC, MEDICARE, SELFPAY | PROVIDERS: PCP Internal Medicine; Visit Provider Internal Medicine | DX: G47.33 Obstructive sleep apnea (adult) (pediatric) (principal); M26.19 Other specified anomalies of jaw-cranial base relationship | CPT/HCPCS: 99202 ==

== ENCOUNTER 2022-04-12 09:50 | Outpatient (REF) | payer MEDICARE, SELFPAY ==
[2022-04-12 10:21] LABS: MANUAL DIFF FLAG NO
[2022-04-12 10:53] LABS: Basophils Percent Auto 0.2 % (0-2); Eosinophils Percent Auto 0.4 % (0-4); Hematocrit 37.8 % (42.0-52.0); Hemoglobin 12.8 g/dl (14.0-18.0); Imm Gran Abs Auto 0.01 X10*3/uL (0.00-0.03); Imm Gran Pct Auto 0.2 % (0.0-0.4); Immature Retic Fraction 4.4 % (2.3-13.4); Lymphocytes Absolute Auto 1.1 X10*3/uL (1.2-4.9); Mean Corpuscular HGB Conc 33.9 g/dl (31.0-36.0); Mean Corpuscular Hemoglobin 32.4 pg (27.0-33.0); Mean Corpuscular Volume 95.7 fL (80.0-98.0); Mean Platelet Volume 11.5 fL (9.4-12.4); Monocytes Absolute Auto 0.5 X10*3/uL (0.1-1.2); Monocytes Percent Auto 10.2 % (2-11); Neutrophils Absolute Auto 3.4 x10*3/uL (2.0-8.3); Platelet Count 168 X10*3/uL (160-400); Red Blood Count 3.95 X10*6/uL (4.60-5.80); Red Cell Distribution Width 12.8 % (11.0-16.0); Retic HGB Equivalent 36.9 pg (30.0-35.0); Reticulocyte Percent 0.9 % (0.5-1.8); Reticulocytes Absolute 0.037 X10*6/uL (0.026-0.095)
[2022-04-12 10:57] LABS: Hematocrit 37.9 % (42.0-52.0); Hemoglobin 12.8 g/dl (14.0-18.0); Mean Corpuscular HGB Conc 33.8 g/dl (31.0-36.0); Mean Corpuscular Hemoglobin 32.2 pg (27.0-33.0); Mean Corpuscular Volume 95.2 fL (80.0-98.0); Mean Platelet Volume 11.6 fL (9.4-12.4); Platelet Count 160 X10*3/uL (160-400); Red Blood Count 3.98 X10*6/uL (4.60-5.80); Red Cell Distribution Width 12.8 % (11.0-16.0); White Blood Count 4.9 X10*3/uL (4.8-10.8)
[2022-04-12 10:59] LABS: Appearance Urine Clear; Color Urine Yellow; Glucose Urine UA Negative (Negative); Leukocyte Esterase Urine Negative (Negative); Nitrite Urine Negative (Negative); Urine Blood Negative (Negative); Urine Ketones Negative (Negative); Urine Protein Negative (Neg-Trace)
[2022-04-12 11:21] LABS: Creatinine Urine 44.91 mg/dL; RBC Urine 0-2 /HPF (0-2); Total Protein Urine Random < 7 mg/dL (<12); WBC Urine 0-5 /HPF (0-5)
[2022-04-12 11:22] LABS: Bacteria Urine None Seen (None Seen); Hyaline Casts Urine 0-2 /LPF (0-2); Squamous Epithelial Cell Urine 0-2 /HPF (0-2)
[2022-04-12 11:39] LABS: Alanine Aminotransferase 17 U/L (0-40); Albumin Level 4.1 g/dL (3.5-5.0); Alkaline Phosphatase 84 U/L (39-117); Anion Gap 16 (12-20); Aspartate Amino Transferase 24 U/L (5-37); Bilirubin Total 0.6 mg/dL (0.0-1.0); Blood Urea Nitrogen 25 mg/dL (9-16); Calcium 9.4 mg/dL (8.4-10.2); Carbon Dioxide 25 mmol/L (22-29); Chloride 101 mmol/L (96-108); Estimated Glomerular Filt Rate 42; Glucose Random 94 mg/dL (60-115); Iron 95 mcg/dL (45-160); Percent Iron Saturation 27 % (15-50); Potassium 4.3 mmol/L (3.3-5.1); Sodium 138 mmol/L (135-145); Total Iron Binding Capacity 352 mcg/dL (228-428); Total Protein 6.8 g/dL (6.5-8.0); Unsaturated Iron Binding 257 ug/dL
[2022-04-12 11:44] LABS: Anion Gap 18 (12-20); Blood Urea Nitrogen 24 mg/dL (9-16); Calcium 9.4 mg/dL (8.4-10.2); Carbon Dioxide 23 mmol/L (22-29); Chloride 101 mmol/L (96-108); Estimated Glomerular Filt Rate 43; Potassium 4.4 mmol/L (3.3-5.1); Sodium 138 mmol/L (135-145)
[2022-04-12 11:56] LABS: Folate > 20.0 ng/mL (> or = 4.0); Vitamin B12 1196 pg/mL (200-900)
[2022-04-12 13:17] LABS: Ferritin 81 ng/mL (20-250); Free T4 (Free Thyroxine) 1.21 ng/dL (0.71-1.85); Thyroid Stimulating Hormone 0.84 uIU/mL (0.32-4.0)
== END 2022-04-12 09:51 | disposition home or self-care (01) ==
LOC: HO.LAB 09:50
PROVIDERS: PCP Internal Medicine; Visit Provider Internal Medicine Hypertension Specialist
DX: N18.30 Chronic kidney disease, stage 3 unspecified (principal); D64.9 Anemia, unspecified; I48.91 Unspecified atrial fibrillation
CPT/HCPCS: 36415; 80051; 80053; 81001; 82310; 82565; 82607; 82728; 82746; 83540; 84156; 84439; 84443; 84520; 85025; 85027; 85045

== ENCOUNTER 2022-04-13 07:03 | Outpatient (REF) | payer MEDICARE, SELFPAY ==
[2022-04-13 08:07] LABS: Cholesterol 146 mg/dL; HDL Cholesterol 52 mg/dL; LDL Cholesterol Calculated 83 mg/dl; Triglycerides 58 mg/dL
== END 2022-04-13 07:04 | disposition home or self-care (01) ==
LOC: HO.LAB 07:03
PROVIDERS: PCP Internal Medicine; Visit Provider Internal Medicine
DX: E78.00 Pure hypercholesterolemia, unspecified (principal); N18.32 Chronic kidney disease, stage 3b
CPT/HCPCS: 36415; 80061

== ENCOUNTER 2022-07-26 11:03 | Outpatient (REF) | payer MEDICARE, SELFPAY ==
[2022-07-26 11:15] LABS: MANUAL DIFF FLAG NO
[2022-07-26 12:11] LABS: Basophils Percent Auto 0.2 % (0-2); Eosinophils Absolute Auto 0.1 X10*3/uL (0.0-0.4); Eosinophils Percent Auto 0.9 % (0-4); Hematocrit 40.4 % (42.0-52.0); Hemoglobin 13.6 g/dl (14.0-18.0); Imm Gran Abs Auto 0.02 X10*3/uL (0.00-0.03); Imm Gran Pct Auto 0.3 % (0.0-0.4); Lymphocytes Percent Auto 17.8 % (20-40); Mean Corpuscular HGB Conc 33.7 g/dl (31.0-36.0); Mean Corpuscular Hemoglobin 31.6 pg (27.0-33.0); Mean Corpuscular Volume 93.7 fL (80.0-98.0); Mean Platelet Volume 12.1 fL (9.4-12.4); Monocytes Absolute Auto 0.5 X10*3/uL (0.1-1.2); Monocytes Percent Auto 9.1 % (2-11); Neutrophils Absolute Auto 4.1 x10*3/uL (2.0-8.3); Neutrophils Percent Auto 71.7 % (45-73); Platelet Count 154 X10*3/uL (160-400); Red Blood Count 4.31 X10*6/uL (4.60-5.80); Red Cell Distribution Width 12.2 % (11.0-16.0); White Blood Count 5.7 X10*3/uL (4.8-10.8)
[2022-07-26 13:13] LABS: Alanine Aminotransferase 14 U/L (0-40); Alkaline Phosphatase 86 U/L (39-117); Anion Gap 14 (12-20); Aspartate Amino Transferase 18 U/L (5-37); Bilirubin Total 0.8 mg/dL (0.0-1.0); Blood Urea Nitrogen 27 mg/dL (9-16); Calcium 9.4 mg/dL (8.4-10.2); Carbon Dioxide 26 mmol/L (22-29); Chloride 103 mmol/L (96-108); Estimated Glomerular Filt Rate 42; Glucose Random 88 mg/dL (60-115); Potassium 4.2 mmol/L (3.3-5.1); Sodium 139 mmol/L (135-145); Total Protein 6.8 g/dL (6.5-8.0)
[2022-07-26 13:18] LABS: TSH reflex Free T4 0.74 uIU/mL (0.32-4.0)
== END 2022-07-26 11:04 | disposition home or self-care (01) ==
LOC: HO.LAB 11:03
PROVIDERS: Nurse Practitioner Family; PCP Internal Medicine; Visit Provider Internal Medicine
DX: Z13.29 Encounter for screening for other suspected endocrine disorder (principal); D64.9 Anemia, unspecified
CPT/HCPCS: 36415; 80053; 84443; 85025

== ENCOUNTER 2022-09-14 09:52 | Outpatient (REF) | payer MEDICARE, SELFPAY ==
--- NOTE | ~2022-09-14 | US_ITS ---
EXAMINATION: US RETROPERITONEAL LIMITED (RENAL ONLY) CLINICAL INFORMATION: Calculus of kidney. COMPARISON: Ultrasound retroperitoneal limited (renal only) 08/06/2019 TECHNIQUE: Real-time imaging of the kidneys. FINDINGS: RIGHT KIDNEY: 10.6 x 5.5 x 4.4 cm (SAG x AP x TRV). The kidney is normal in size and contour. Increased parenchymal echogenicity with cortical thinning. No renal calculi or hydronephrosis. Benign-appearing renal cysts measuring up to 2.5 cm, no follow-up imaging recommended. A 3.5 x 1.5 x 1.8 cm solid mass in the mid pole previously 4.6 x 4.7 x 3.1 cm decreased in size without definite internal vascularity which may correspond to the reported cryoablation site. LEFT KIDNEY: 14.8 x 7.3 x 4.3 cm (SAG x AP x TRV). The kidney is normal in size and contour. Echogenic renal parenchymal cortical thinning. No renal calculi or hydronephrosis. Benign-appearing renal cysts measuring up to 1.6 cm, no follow-up imaging recommended. US/US renal BI IMPRESSION: 1. A 3.5 cm solid mass in the mid pole of the right kidney previously measured 4.7 cm decreased in size without definite internal vascularity which may correspond to the reported cryoablation site, however assessment for any recurrent disease would be best assessed with CT or MR renal mass protocol. 2. Bilateral echogenic renal parenchymal cortical thinning which can be seen in the setting of medical renal disease.
== END 2022-09-14 09:53 | disposition home or self-care (01) ==
LOC: HO.US 09:52
PROVIDERS: PCP Internal Medicine; Visit Provider Urology
DX: N20.0 Calculus of kidney (principal); D49.511 Neoplasm of unspecified behavior of right kidney
CPT/HCPCS: 76775

== ENCOUNTER → 2022-10-05 10:41 | Outpatient (BNVA) | payer MEDICARE, SELFPAY | PROVIDERS: PCP Internal Medicine; Visit Provider Urology | DX: N40.1 Benign prostatic hyperplasia with lower urinary tract symptoms (principal); R35.0 Frequency of micturition; D49.511 Neoplasm of unspecified behavior of right kidney | CPT/HCPCS: 99212 ==

== ENCOUNTER 2022-10-15 07:08 | Outpatient (REF) | payer MEDICARE, SELFPAY ==
[2022-10-15 07:26] LABS: MANUAL DIFF FLAG NO
[2022-10-15 08:20] LABS: Basophils Percent Auto 0.2 % (0-2); Eosinophils Absolute Auto 0.1 X10*3/uL (0.0-0.4); Eosinophils Percent Auto 1.4 % (0-4); Hematocrit 39.1 % (42.0-52.0); Hemoglobin 13.2 g/dl (14.0-18.0); Imm Gran Abs Auto 0.01 X10*3/uL (0.00-0.03); Imm Gran Pct Auto 0.2 % (0.0-0.4); Lymphocytes Absolute Auto 1.1 X10*3/uL (1.2-4.9); Lymphocytes Percent Auto 24.4 % (20-40); Mean Corpuscular HGB Conc 33.8 g/dl (31.0-36.0); Mean Corpuscular Hemoglobin 31.6 pg (27.0-33.0); Mean Corpuscular Volume 93.5 fL (80.0-98.0); Mean Platelet Volume 11.8 fL (9.4-12.4); Monocytes Absolute Auto 0.4 X10*3/uL (0.1-1.2); Monocytes Percent Auto 9.3 % (2-11); Neutrophils Absolute Auto 2.9 x10*3/uL (2.0-8.3); Neutrophils Percent Auto 64.5 % (45-73); Platelet Count 150 X10*3/uL (160-400); Red Blood Count 4.18 X10*6/uL (4.60-5.80); Red Cell Distribution Width 12.2 % (11.0-16.0); White Blood Count 4.4 X10*3/uL (4.8-10.8)
[2022-10-15 08:56] LABS: Alanine Aminotransferase 15 U/L (0-40); Albumin Level 3.8 g/dL (3.5-5.0); Alkaline Phosphatase 70 U/L (39-117); Anion Gap 11 (12-20); Aspartate Amino Transferase 20 U/L (5-37); Bilirubin Total 0.7 mg/dL (0.0-1.0); Blood Urea Nitrogen 30 mg/dL (9-16); Calcium 9.1 mg/dL (8.4-10.2); Carbon Dioxide 28 mmol/L (22-29); Chloride 106 mmol/L (96-108); Cholesterol 145 mg/dL; Estimated Glomerular Filt Rate 43; Glucose Random 92 mg/dL (60-115); HDL Cholesterol 54 mg/dL; LDL Cholesterol Calculated 79 mg/dl; Potassium 3.9 mmol/L (3.3-5.1); Sodium 141 mmol/L (135-145); Total Protein 6.2 g/dL (6.5-8.0); Triglycerides 60 mg/dL
[2022-10-15 09:29] LABS: Folate 15.1 ng/mL (> or = 4.0); Free T4 (Free Thyroxine) 1.01 ng/dL (0.71-1.85); Thyroid Stimulating Hormone 0.84 uIU/mL (0.32-4.0); Vitamin B12 871 pg/mL (200-900)
== END 2022-10-15 07:09 | disposition home or self-care (01) ==
LOC: HO.LAB 07:08
PROVIDERS: PCP Internal Medicine; Visit Provider Internal Medicine
DX: I10 Essential (primary) hypertension (principal); E78.00 Pure hypercholesterolemia, unspecified
CPT/HCPCS: 36415; 80053; 80061; 82607; 82746; 84439; 84443; 85025

== ENCOUNTER 2022-11-09 13:52 | Outpatient (REF) | payer MEDICARE, SELFPAY ==
[2022-11-09 16:04] LABS: Anion Gap 15 (12-20); Blood Urea Nitrogen 31 mg/dL (9-16); Calcium 9.7 mg/dL (8.4-10.2); Carbon Dioxide 27 mmol/L (22-29); Chloride 100 mmol/L (96-108); Estimated Glomerular Filt Rate 44; Glucose Random 108 mg/dL (60-115); Sodium 138 mmol/L (135-145)
[2022-11-09 16:13] LABS: Creatinine Urine 42.52 mg/dL; Total Protein Urine Random < 7 mg/dL (<12)
== END 2022-11-09 13:53 | disposition home or self-care (01) ==
LOC: HO.LAB 13:52
PROVIDERS: PCP Internal Medicine; Visit Provider Internal Medicine Hypertension Specialist
DX: N18.31 Chronic kidney disease, stage 3a (principal)
CPT/HCPCS: 36415; 80048; 84156

== ENCOUNTER → 2022-11-27 23:59 | Outpatient (BNV) | payer MEDICARE, SELFPAY ==
--- NOTE | 2022-12-08 14:21 | A.OFFVIS_ITS ---
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 Mother Diabetes Cancer Son No problems noted. Son No problems noted. Social History Housing: House Alcohol intake: never Patient Tobacco Use Status: Never used Tobacco e-Cigarette/Vaping Use: Never Used Second Hand Smoke Exposure: No Advance Directives Date on File: 12/08/20 service: No Current occupational status: retired Cognitive needs: Yes Hearing needs: Yes Vision needs: Yes Office Procedures Cardiac Device Check Cardiac Device Check Details: Date of service- 11/27/2022 ; Battery life >7 years; normal lead parameters; AP 37%; [employer] 96%; time in AT/AF 5.5%; controlled rates. Overall normal device function. [id number] Cardiac Device Interrogation, pacemaker Procedure code (CPT) selection complete Assessment & Plan Assessment & Plan (1) SSS (sick sinus syndrome): Code(s): I49.5 - Sick sinus syndrome (2) PAF (paroxysmal atrial fibrillation): Code(s): I48.0 - Paroxysmal atrial fibrillation Coding Level of Care Code Procedure Only Diagnoses SSS (sick sinus syndrome) I49.5 PAF (paroxysmal atrial fibrillation) I48.0 CPT Codes Cardiac Device Check - Cardiac Device 12: [id number] Cardiac Device Interrogation, pacemaker ([id number])
== END ==
PROVIDERS: PCP Internal Medicine; Visit Provider Internal Medicine
DX: I49.5 Sick sinus syndrome (principal); Z95.0 Presence of cardiac pacemaker
CPT/HCPCS: 93294

== ENCOUNTER 2022-12-17 10:52 | Outpatient (AMB) | payer MEDICARE, SELFPAY ==
[2022-12-17 10:53] VITALS: BP 138/60; PULSE 60; O2SAT 98; BMI 22.8
--- NOTE | 2022-12-17 10:53 | A.OFFPC_ITS ---
Vital Signs 12/17/22 10:53 Height 6 ft Weight 168 lb BMI 22.8 BP 138/60 Blood Pressure Location Lt brachial Position Sitting Pulse 60 Pulse Source Pulse Oximeter Temp Source Skin Pulse Oximetry (%) 98 Oxygen Delivery Method Room Air Intake Visit Reasons: BLE edema Terminal Superintendent Required: No Allergies oxycodone Allergy (Unknown, Verified 12/17/22 11:11) hives aspirin Adverse Reaction (Intermediate, Verified 12/17/22 11:11) bleeding Medication List - Last Reconciled 12/17/22 by CHAPIS Sahu calcium carbonate 500 mg PO DAILY cyanocobalamin (vitamin B-12) 250 mcg PO DAILY fluorouracil 5% appl topical hydrochlorothiazide 12.5 mg PO DAILY 90 days bxckfwor-pnv-XW-lycopen-lutein 300-600-300 mcg (Centrum Silver Men) 1 tab PO DAILY multivitamin 1 tab PO DAILY rivaroxaban (Xarelto) 15 mg PO DAILY tamsulosin 0.4 mg PO BEDTIME 90 days Tobacco use date assessed: 12/17/22 Fall risk assessment: No Falls in past year Last assessed Fall Risk: 12/17/22 Dental Screening Dental Screen Date: 12/17/22 HPI BLE edema HPI Details Patient is an 87-year-old male presents today for an office visit due to feet cold sensation and intermittent bilateral ankle swelling for very long time now. Medical history significant for CKD, AFib, BPH, anemia, hypertension, SHORTY among others. He also reports pain in his legs when he walked. Reports tingling sensation in his feet, reports that his feet are always cold. He denies shortness of breath or chest pain. Reports if he gets wound on his leg it takes long time to heal. 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 Mother Diabetes Cancer Son No problems noted. Son No problems noted. Social History Housing: House Alcohol intake: never Patient Tobacco Use Status: Never used Tobacco e-Cigarette/Vaping Use: Never Used Second Hand Smoke Exposure: No Advance Directives Date on File: 12/08/20 service: No Current occupational status: retired Cognitive needs: Yes Hearing needs: Yes Vision needs: Yes Questionnaire PHQ-9 Over the last 2 weeks, how often have you been bothered by any of the following problems? 1. Little interest or pleasure in doing things: several days 2. Feeling down, depressed, or hopeless: several days 3. Trouble falling or staying asleep, or sleeping too much: several days 4. Feeling tired or having little energy: more than half the days 5. Poor appetite or overeating: not at all 6. Feeling bad about yourself - or that you are a failure or have let yourself or your family down: not at all 7. Trouble concentrating on things, such as reading the newspaper or watching television: several days 8. Moving or speaking so slowly that other people could have noticed. Or the opposite - being so fidgety or restless that you have been moving around a lot more than usual: not at all 9. Thoughts that you would be better off or of hurting yourself in some way: not at all Total score: 6 Depression Screening Interpretation: Negative 54723 - PHQ-9 Billing: Yes Source: Developed by Drs. Ronan Johnston, Malu Yanes, Josse Tamayo and colleagues, with an educational todd from [employer]. Thrive Questionnaire Date Thrive assessed: 10/22/22 I am a: Patient What is your living situation today?: I have a steady place to live Within the past 12 months, did the food you bought not last and you didn't have the money to get more?: Never true Within the past 12 months, did you worry whether your food would run out before you got money to buy more?: Never true Do you have trouble paying for medicines?: No Do you have trouble getting transportation to medical appointments?: No Do you have trouble paying your heating and electricity bill?: No Do you have trouble taking care of your child, family member or friend?: No Do you have trouble with day-to-day activities such as bathing, preparing meals, shopping, managing finances, etc.?: No Are you currently unemployed and looking for a job?: No Are you interested in more education?: No Currently or been in a relationship where the following occur: no concerns reported AUDIT C Alcohol Use Questionnaire (AUDIT-C) 1. How often do you have a drink containing alcohol?: Never 3. How often do you have six or more drinks on one occasion?: Never Total Score: 0 Score Reviewed/Action Taken: No CALI-7 AMB Questionnaire CALI-7 Date CALI - 7 assessed: 10/22/22 Feeling nervous, anxious, or on edge: 1 = Several days Not being able to stop or control worryin = Several days Worrying too much about different things: 0 = Not at all Trouble relaxin = Not at all Being so restless that it is hard to sit still: 0 = Not at all Becoming easily annoyed or irritable: 0 = Not at all Feeling afraid as if something awful might happen: 0 = Not at all Total CALI-7 score (0-4 normal; 5-9 mild; 10-14 moderate; 15-21 severe): 2 Source: Developed by Drs. Ronan Johnston, Malu Yanes, Josse Tamayo and colleagues, with an educational todd from [employer]. CALI-7 Assessment Billing CALI-7 Assessment Tool: CALI-7 Assessment 81352 Review of Systems Const Details: Cold feet Denies body aches, Denies chills, Denies fever(s) and Denies headache(s) Eyes Denies change in vision ENT Denies dizziness, Denies otalgia, Denies headache(s), Denies nasal discharge, Denies sinus pain and Denies sore throat Card Denies chest pain, Reports leg edema, Denies lightheadedness and Denies dyspnea Resp Denies cough, Denies dyspnea and Denies wheezing GI Denies abdominal pain Denies dysuria Musc Denies myalgias, Denies numbness and Reports tingling Skin/Breast Denies lesions and Denies rash Neuro Denies dizziness, Denies headache(s), Denies numbness and Reports tingling Aller/Immun Denies wheezing Physical exam (Primary Care) Vital Signs: Last Vital Signs Pulse 60 12/17/22 10:53 BP 138/60 12/17/22 10:53 Pulse Ox 98 12/17/22 10:53 Oxygen Delivery Method Room Air 12/17/22 10:53 BMI result Body Mass Index 22.8 Tobacco/Smoking Status: Tobacco use Status Tobacco use date assessed 12/17/22 12/17/22 10:54 Patient Tobacco Use Status Never used Tobacco 12/17/22 10:54 e-Cigarette/Vaping Use Never Used 12/17/22 10:54 PHQ-9: PHQ-9 Score PHQ-9: Total score 6 12/17/22 13:20 Depression Screening Interpretation: Negative Thrive Assessment: Date of Thrive Assessment Date Thrive assessed 10/22/22 12/17/22 10:54 Currently or been in a relationship where the following occur: no concerns reported Const General: cooperative and no acute distress Orientation/consciousness: patient oriented x3 HENMT Head: Yes normocephalic and Yes atraumatic Mouth: oropharynx normal and moist mucous membranes Throat: Yes posterior oropharynx normal Eyes General: appearance normal, both eyes and all related structures Neck Neck: Yes normal visual inspection, Yes full ROM and Yes no lymphadenopathy Resp Effort & Inspection: normal respiratory effort and able to speak in complete sentences Auscultation: clear to auscultation bilaterally, no crackles, no rales, no rhonchi and no wheezes Cardio Rate: regular rate Rhythm: regular rhythm Heart sounds: S1 normal heart sound present and S2 normal heart sound present Peripheral pulses: dorsalis pedis present bilateral GI Auscultation: normal bowel sounds Skin Other: Bilateral lower extremity warm to touch, skin at some areas with shiny aspect, no lesions, nontender General skin exam: no rashes or lesions noted Neuro General: patient oriented x3 Gait exam (Neuro): Normal gait present Extrem Other: Very mild trace edema noted to bilateral ankle General: Yes full ROM Assessment and Plan Assessment & Plan (1) Leg edema: Code(s): R60.0 - Localized edema Plan: Bilateral ankles with very mild trace edema, patient was encouraged to elevate his bilateral lower extremity and limit salt consumption. Blood work from - 10/2022 stable. Patient reports that his feet are always cold for very long time now. Physical exam revealed lower extremities warm to palpation although some shiny areas noted on the skin. Will obtain ultrasound of bilateral lower e xtremity to check for PVD. Patient agreed with the plan. Will notify of the results. Keep appointment with PCP as scheduled or follow-up sooner as needed. Orders: Orders US MENDEL complete Today R60.0 - Localized edema, R68.89 - Other general symptoms and signs Coding Level of Care Code Est Pt Level 3 (38759) Diagnoses Leg edema R60.0 Additional Codes CALI-7 Assessment Billing - CALI-7 Assessment Tool: CALI-7 Assessment 96401 ([id number])
== END 2022-12-17 11:29 | disposition home or self-care (01) ==
PROVIDERS: PCP Internal Medicine; Visit Provider Nurse Practitioner Family
DX: R60.0 Localized edema (principal)
CPT/HCPCS: 99213

== ENCOUNTER 2022-12-23 14:29 | Outpatient (AMB) | payer MEDICARE, SELFPAY ==
--- NOTE | 2022-12-23 14:33 | A.OFFVIS_ITS ---
Intake Vital Signs 12/23/22 14:34 Height 6 ft Weight 169 lb 5.04 oz BMI 23.0 BP 120/62 Blood Pressure Location Lt brachial Position Sitting Pulse 70 Intake Visit Reasons: follow up per patient Intake Note: follow up w/ EKG Intermediate Accountant Required: No Accompanied by: Spouse Allergies oxycodone Allergy (Unknown, Verified 12/23/22 14:36) hives aspirin Adverse Reaction (Intermediate, Verified 12/23/22 14:36) bleeding Medication List - Last Reconciled 12/23/22 by Ananda Brewer MD calcium carbonate 500 mg PO DAILY cyanocobalamin (vitamin B-12) 250 mcg PO DAILY fluorouracil 5% appl topical hydrochlorothiazide 12.5 mg PO DAILY 90 days rqhxrblg-cbv-FD-lycopen-lutein 300-600-300 mcg (Centrum Silver Men) 1 tab PO DAILY multivitamin 1 tab PO DAILY rivaroxaban (Xarelto) 15 mg PO DAILY tamsulosin 0.4 mg PO BEDTIME 90 days HPI HPI Comments History of Present Illness Details Master returns for follow-up. In the past, was seen for generalized weakness and sinus bradycardia. Holter monitor had shown second-degree heart block. Then underwent permanent pacemaker implantation. In the past, interrogation had shown atrial fibrillation and hence he is on anticoagulation as well. He states he is only having various symptoms. He was apparently having some leg swelling and that led to a ultrasound ordered by his own PCP. Otherwise, he is getting some left-sided chest pains off and on. However, not exertional. He states when he is on the stepper he does not feel the pain but randomly gets chest pain. Hence not clear if it is something musculoskeletal or cardiac. 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 Mother Diabetes Cancer Son No problems noted. Son No problems noted. Social History Housing: House Alcohol intake: never Patient Tobacco Use Status: Never used Tobacco e-Cigarette/Vaping Use: Never Used Second Hand Smoke Exposure: No Advance Directives Date on File: 12/08/20 service: No Current occupational status: retired Cognitive needs: Yes Hearing needs: Yes Vision needs: Yes Review of Systems Const Denies weakness ENT Denies dizziness Card Denies chest pain, Denies chest pain with activity, Denies syncope, Denies rapid heart rate, Denies pedal edema, Denies edema, Denies leg edema, Denies lightheadedness, Denies palpitations, Denies dyspnea, Denies dyspnea on exertion and Denies orthopnea Resp Denies cough, Denies dyspnea and Denies dyspnea on exertion GI Denies hematochezia and Denies change in stool character Musc Denies abnormal gait, Denies muscle cramps, Denies muscle weakness, Denies numbness, Denies radiating pain into limb and Denies tingling Neuro Denies abnormal gait, Denies dizziness, Denies syncope, Denies numbness, Denies tingling and Denies weakness Endo Denies palpitations Physical Exam Vital Signs: Last Vital Signs Pulse 70 12/23/22 14:34 BP 120/62 12/23/22 14:34 BMI result Body Mass Index 23.0 Const General: comfortable and no acute distress Orientation/consciousness: patient oriented x3 HEENT Other: Unremarkable Head: Yes normal to inspection Neck Neck: Yes normal visual inspection Chest Chest palpation & inspection: normal inspection of the chest Resp Auscultation: clear to auscultation bilaterally Cardio Palpation: normal PMI Heart sounds: S1 normal heart sound present, S2 normal heart sound present, no gallops, no murmurs and no rubs GI Palpation (GI): Soft to palpation Back/Spine/Pelvis Other: unremarkable Skin General skin exam: no rashes or lesions noted Neuro General: patient oriented x3 Extrem General: Yes normal to inspection Psych Mental Status: mental status grossly normal Office Procedures EKG Details: EKG with atrial fibrillation as underlying rhythm. Ventricular pacing at 70/Min. [id number], Complete Assessment & Plan Assessment & Plan (1) Precordial chest pain: Code(s): R07.2 - Precordial pain Plan: Difficult to say musculo-skeletal or cardiac. At his age, anything is possible. Get a stress Mibi. Pharmacological stress with Lexiscan. (2) PAF (paroxysmal atrial fibrillation): Code(s): I48.0 - Paroxysmal atrial fibrillation Plan: By EKG, he is in atrial fibrillation today. By last pacer interrogation, atrial fibrillation burden is 5.5%. Continue anticoagulation without changes. It seems he of tried a small dose of metoprolol in the past but there was concern about low blood pressure and not on it anymore. Due to heart block do not think he gets any real rapid rates. He has a history of nosebleeds as well as GI bleeding from gastric ulcer related to aspirin. Hence avoid aspirin/NSAIDs. (3) Normally functioning cardiac pacemaker present: Code(s): Z95.0 - Presence of cardiac pacemaker Plan: We can follow this remotely. (4) SHORTY (obstructive sleep apnea): Code(s): G47.33 - Obstructive sleep apnea (adult) (pediatric) Plan: Mild SHORTY but patient not referring CPAP. Orders: Orders CA lexiscan stress w shaye Today I20.9 - Angina pectoris, unspecified NM cardiolite stress test Today R07.2 - Precordial pain Coding Level of Care Code Est Pt Level 4 (93711) Diagnoses Precordial chest pain R07.2 PAF (paroxysmal atrial fibrillation) I48.0 Normally functioning cardiac pacemaker present Z95.0 SHORTY (obstructive sleep apnea) G47.33 CPT Codes EKG - CPT: 93390-[id number], Complete ([id number])
[2022-12-23 14:34] VITALS: BP 120/62; PULSE 70; BMI 23.0
== END 2022-12-23 14:53 | disposition home or self-care (01) ==
PROVIDERS: PCP Internal Medicine; Visit Provider Internal Medicine
DX: R07.2 Precordial pain (principal); I48.0 Paroxysmal atrial fibrillation; Z95.0 Presence of cardiac pacemaker; G47.33 Obstructive sleep apnea (adult) (pediatric)
CPT/HCPCS: 93010; 99214

== ENCOUNTER → 2022-12-23 14:29 | Outpatient (BNVA) | payer MEDICARE, SELFPAY | PROVIDERS: PCP Internal Medicine; Visit Provider Internal Medicine | DX: R07.2 Precordial pain (principal); I48.0 Paroxysmal atrial fibrillation; G47.33 Obstructive sleep apnea (adult) (pediatric); Z95.0 Presence of cardiac pacemaker | CPT/HCPCS: 93005; 99212 ==

== ENCOUNTER 2023-01-05 14:19 | Outpatient (REF) | payer MEDICARE, SELFPAY ==
--- NOTE | ~2023-01-05 | US_ITS ---
EXAMINATION: Noninvasive assessment of the arteries of both lower extremities to include a single level PVR exam and ANKLE BRACHIAL INDICES (ABIs). CLINICAL INFORMATION: R68.89 COMPARISON: None available. TECHNIQUE: The ankle/brachial indices of the distal posterior tibial and the dorsalis pedis arteries were obtained of the lower extremity arterial system bilaterally; along with pressures and pulse volume recordings at the ankle level. The study was performed at rest. FINDINGS: 1. ANKLE-BRACHIAL INDICES: RIGHT: 1.14 LEFT: 1.11 2. ANKLE PVR WAVEFORMS: RIGHT: Abnormal LEFT: Abnormal US/US MENDEL complete IMPRESSION: Abnormal bilateral PVRs, but normal ABIs suggests atherosclerotic calcification. Consider further evaluation with arterial duplex were CTA of the lower extremities.
== END 2023-01-05 14:20 | disposition home or self-care (01) ==
LOC: HO.US 14:19
PROVIDERS: PCP Internal Medicine; Visit Provider Nurse Practitioner Family
DX: R60.0 Localized edema (principal); R68.89 Other general symptoms and signs; N18.30 Chronic kidney disease, stage 3 unspecified
CPT/HCPCS: 93923

== ENCOUNTER → 2023-01-20 08:22 | Outpatient (REF) | payer MEDICARE, SELFPAY ==
--- NOTE | ~2023-01-20 | NM_ITS ---
Lexiscan Myocardial perfusion study Indication: Chest pain, atrial fibrillation, assess for coronary disease and ischemia Technique: The patient was brought in for a Lexiscan perfusion study on 01/20/2023 and was injected 0.4 mg of Lexiscan intravenously. Within a minute of this injection 25 mCi of sestamibi was given intravenously. Images were obtained using the SPECT gamma camera interlaced with the gating device. Images were obtained in supine position. Resting perfusion study was performed on 01/21/2023. Patient was administered 25 mCi of sestamibi intravenously at rest. Images were then obtained in supine position. Images were processed with the software and compared side to side in short axis, horizontal long axis and vertical long axis views. Total DLP 107mGy-cm. Findings: Raw acquisition reviewed. Arms by the patient's side. The stress perfusion study showed diminished tracer uptake in the mid to distal part of inferior wall. There is adjacent subdiaphragmatic tracer uptake as well. CT attenuation images are also similar. The gated study shows diminished LV systolic function with calculated LVEF of 37%. LV cavity is normal in size. The gated study shows globally reduced wall thickening and contraction of segments. Resting study shows diminished tracer uptake in the inferior wall from mid to distal aspect. There is also adjacent subdiaphragmatic tracer uptake near the inferior wall. Gating at rest reveals normal wall motion with ejection fraction at 40%. The findings are consistent with fixed mid to distal inferior defect. No clear reversible defects. Inferior wall assessment suboptimal due to some diaphragmatic tracer uptake. NM/NM cardiolite stress test Impression: 1. Myocardial perfusion imaging study shows small fixed defect in the mid to distal inferior wall which could be from artifact; cannot exclude prior infarct. No clear ischemia. 2. Gated LVEF is 37% during stress and 40% during rest. Correlate with echocardiogram. 3. Transient ischemic dilatation not present. EKG component of the test reported separately.
--- NOTE | 2023-01-20 08:25 | CA_ITS ---
Acquisition Time: 2023-01-20 08:52:30 Total Exercise Time: 00:02:00 Test Indications: PERCORDIAL PAIN Medications: Protocol: LEXISCAN Max HR: 084 BPM 63% of Pred: 132 BPM Max BP: 138/060 mmHG Max Work Load: 1.0 METS Pharmacological stress test with Lexiscan injection, without anginal symptoms, with isolated PVCs, with normotensive response to injection, with nondiagnositic EKGs. Aminophylline 75mg IBP given to rteverse Lexiscan. Nculear images pending. Test reviewed with Dr. Reece., Rhythm A-V paced and A sensed V paced. Referred By: Jaya Reece Overread By: JAYA REECE
== END ==
LOC: HO.CARD 08:22
PROVIDERS: PCP Internal Medicine; Visit Provider Internal Medicine
DX: R07.2 Precordial pain (principal); I20.9 Angina pectoris, unspecified
CPT/HCPCS: 78452; 93017; A9500; J0280; J2785

== ENCOUNTER → 2023-01-20 08:25 | Outpatient (BNV) | payer MEDICARE, SELFPAY | PROVIDERS: PCP Internal Medicine; Visit Provider Internal Medicine | DX: I48.0 Paroxysmal atrial fibrillation (principal); R07.9 Chest pain, unspecified | CPT/HCPCS: 78452; 93016; 93018 ==

== ENCOUNTER → 2023-02-02 08:41 | Outpatient (REF) | payer MEDICARE, SELFPAY ==
--- NOTE | 2023-02-02 08:44 | CA_ITS ---
Transthoracic Echocardiogram Patient (Last, First, Middle): Master Colon L Gender: Male Date of : 1935 Age: 87 Procedure Date: 02/02/2023 Procedure Type: Transthoracic Echocardiogram Location: OP Height: 177.8 cm Weight: 74.84 kg BSA: 1.92 m2 Heart Rate: bpm BP: 124 / 60 mmHg Manager Sap: Referring MD: Ananda Brewer MD Ekg Technician: Attila Scales MD Symptoms: I42.9 - Cardiomyopathy, unspecified Study Quality: Good ECG Rhythm: Sinus Conclusions: - 1. Low normal LV ejection fraction of 50-55% with mild LVH and impaired relaxation filling pattern 2. Mildly dilated left atrium 3. [id number] mitral regurgitation 4. Normal RV systolic pressure 5. Upper limits normal ascending aortic size at 3.6 cm 6. No pericardial effusion Findings Left Ventricle Normal left ventricular cavity size. There is mildly increased left ventricular wall thickness. The left ventricular systolic function is low normal. The visually estimated ejection fraction is between 50-55%. Spectral Doppler is indicative of an impaired relaxation filling pattern. E/E prime ratio is between 8 and 15 consistent with indeterminate filling pressures. Right Ventricle Normal right ventricular cavity size and systolic function. There is a pacemaker wire seen in the right ventricle. Atria The left atrium is mildly dilated. The right atrium is likely dilated. A pacemaker wire is identified in the right atrium. Aortic Valve There is mild calcification of the aortic valve. There is no aortic valve stenosis. There is no aortic valve regurgitation. Mitral Valve Normal mitral valve structure and function. There is mild to moderate mitral valve regurgitation. There is no mitral valve stenosis. Pulmonic Valve The pulmonic valve is likely normal. There is trace pulmonic valve regurgitation. Tricuspid Valve Normal tricuspid valve structure. There is mild tricuspid valve regurgitation. The right ventricular systolic pressure is normal. The right ventricular systolic pressure is 29 mmHg. Normal right atrial pressure. There is no evidence of pulmonary hypertension. Great Vessels The pulmonary artery was not well visualized. Venous The inferior vena cava is normal in size and collapses greater than 50% with inspiration. Pericardium/Pleural There is no evidence of pericardial effusion. Measurements 2D Linear Measurements IVSd: 1.25 0.6-0.9/0.6-1.0 cm LVIDd: 4.94 3.9-5.3/4.2-5.9 cm LVIDd Index: 2.57 2.4-3.2/2.2-3.1 cm/m2 LVIDs: 3.55 2.0-3.6 cm LVPWd: 1.22 0.7-1.1 cm Ao Root: 3.20 2.1-3.5 cm LA Diam: 3.80 2.7-3.8/3.0-4.0 cm LAIDs Index: 1.98 1.5-2.3 cm/m2 LV Mass: 297.77 67-162/88-224 g LV Mass Index: 155.09 43-95/49-115 g/m2 LVOT Diam: 2.10 3.0+(-)1.3 cm 2D Systolic Function EF 4C: 52.50 >55% EF 2C: 53.60 >55% EF BiP: 53.90 >55% Mitral Valve MV Pk E: 0.72 MV PK A: 1.15 MV Decel Time: 204.00 E/A: 0.60 E'Lateral: 6.09 E'Medial: 7.29 E/E' Med: 9.90 E/E' Lat: 11.80 PHT: 60.00 MVA PHT: 3.67 Decel [place]: 3.52 Aortic Valve AoV Pk Atul: 1.37 AoV Mn Atul: 0.96 AoV VTI: 0.35 AoV Pk Grad: 8.00 Aov Mn Grad: 4.00 BABITA Cont.VTI: 1.95 LVOT LVOT Pk Atul: 0.75 LVOT Mn Atul: 0.50 LVOT VTI: 0.20 LVOT Pk Grad: 2.00 LVOT Mn Grad: 1.00 LVOT Diam: 2.10 LVOT Area: 3.46 Diastolic Function MV Pk E: 0.72 MV Pk A: 1.15 E/A: 0.60 E'Medial: 7.29 E/E' Med: 9.90 E' Laterial: 6.09 E/E' Lat: 11.80 Right Ventricle TAPSE (mm): 27.00 Tricuspid Valve TR Pk Atul: 2.57 TR Pk Grad: 26.00 RA Press: 3.00 RVSP: 29.00 Great Vessels Aorta Ao Root-2D: 3.20 2.0-3.7 cm Ao Asc: 3.60 2.1-3.4 cm Pulmonary Valve PV Pk Atul: 0.98 Peak PV Grad: 4.00 Updated in Other Vendor System with Status of Final Attila Scales MD electronically signed on 02/02/2023 3:51:12 PM with status of Final
== END ==
LOC: HO.CARD 08:41
PROVIDERS: PCP Internal Medicine; Visit Provider Internal Medicine
DX: I42.9 Cardiomyopathy, unspecified (principal)
CPT/HCPCS: 93306

== ENCOUNTER → 2023-02-02 08:44 | Outpatient (BNV) | payer MEDICARE, SELFPAY | PROVIDERS: PCP Internal Medicine; Visit Provider Internal Medicine Cardiovascular Disease | DX: I34.0 Nonrheumatic mitral (valve) insufficiency (principal); I36.1 Nonrheumatic tricuspid (valve) insufficiency | CPT/HCPCS: 93306 ==

== ENCOUNTER 2023-02-07 13:00 | Outpatient (AMB) | payer MEDICARE, SELFPAY ==
[2023-02-07 13:23] VITALS: BP 138/56; PULSE 60; BMI 23.1
--- NOTE | 2023-02-07 13:23 | MHC.OFFVIS ---
Intake Vital Signs 02/07/23 13:23 Height 6 ft Weight 170 lb 10.205 oz BMI 23.1 BP 138/56 L Blood Pressure Location Lt brachial Position Sitting Pulse 60 Intake Visit Reasons: 1 year follow up with SIL4 [employer] device check Intake Note: 1 year follow up w/ device check Quartz Cutter Required: No Accompanied by: Spouse Allergies oxycodone Allergy (Unknown, Verified 02/07/23 13:23) hives aspirin Adverse Reaction (Intermediate, Verified 02/07/23 13:23) bleeding Medication List - Last Reconciled 02/07/23 by Ananda Brweer MD calcium carbonate 500 mg PO DAILY cyanocobalamin (vitamin B-12) 250 mcg PO DAILY fluorouracil 5% appl topical hydrochlorothiazide 12.5 mg PO DAILY 90 days multivitamin 1 tab PO DAILY [id number]-lowphg [id number] mcg (Centrum Silver Men) 1 tab PO DAILY rivaroxaban (Xarelto) 15 mg PO DAILY tamsulosin 0.4 mg PO BEDTIME 90 days HPI HPI Comments History of Present Illness Details Master returns for follow-up. In the past, was seen for generalized weakness and sinus bradycardia. Holter monitor had shown second-degree heart block. Then underwent permanent pacemaker implantation. Then, interrogation had shown atrial fibrillation and hence he is on anticoagulation as well. Overall, no clear cardiac symptoms like angina but generalized aches and pains in various constitutional symptoms. He states his entire body hurts. He is not able to do things as well that he used to do when he was much younger, and he describes activities like climbing up ladders extra. Suspect lot of issues are age related. 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 Mother Diabetes Cancer Son No problems noted. Son No problems noted. Social History Housing: House Alcohol intake: never Patient Tobacco Use Status: Never used Tobacco e-Cigarette/Vaping Use: Never Used Second Hand Smoke Exposure: No Advance Directives Date on File: 12/08/20 service: No Current occupational status: retired Cognitive needs: Yes Hearing needs: Yes Vision needs: Yes Review of Systems Const Denies weakness ENT Denies dizziness Card Denies chest pain, Denies chest pain with activity, Denies syncope, Denies rapid heart rate, Denies pedal edema, Denies edema, Denies leg edema, Denies lightheadedness, Denies palpitations, Denies dyspnea, Denies dyspnea on exertion and Denies orthopnea Resp Denies cough, Denies dyspnea and Denies dyspnea on exertion GI Denies hematochezia and Denies change in stool character Musc Denies abnormal gait, Denies muscle cramps, Denies muscle weakness, Denies numbness, Denies radiating pain into limb and Denies tingling Neuro Denies abnormal gait, Denies dizziness, Denies syncope, Denies numbness, Denies tingling and Denies weakness Endo Denies palpitations Physical Exam Vital Signs: Last Vital Signs Pulse 60 02/07/23 13:23 BP 138/56 L 02/07/23 13:23 BMI result Body Mass Index 23.1 Const General: comfortable and no acute distress Orientation/consciousness: patient oriented x3 HEENT Other: Unremarkable Head: Yes normal to inspection Neck Neck: Yes normal visual inspection Chest Chest palpation & inspection: normal inspection of the chest Resp Auscultation: clear to auscultation bilaterally Cardio Palpation: normal PMI Heart sounds: S1 normal heart sound present, S2 normal heart sound present, no gallops, no murmurs and no rubs GI Palpation (GI): Soft to palpation Back/Spine/Pelvis Other: unremarkable Skin General skin exam: no rashes or lesions noted Neuro General: patient oriented x3 Extrem General: Yes normal to inspection Psych Mental Status: mental status grossly normal Office Procedures Cardiac Device Check Cardiac Device Check Details: Pacemaker interrogated today. Dual-chamber device, programmed in AAI/DDD mode. Battery status 8 years. Normal lead parameters. Atrial pacing 39.8%. Ventricular pacing 98.1%. Atrial fibrillation burden is 7.5%. However, ventricular rates are well controlled even during atrial fibrillation. [id number] Cardiac Device Check, pacemaker dual lead Procedure code (CPT) selection complete Assessment & Plan Assessment & Plan (1) PAF (paroxysmal atrial fibrillation): Code(s): I48.0 - Paroxysmal atrial fibrillation Plan: Overall burden not too high and even when he has atrial fibrillation, rates are controlled likely from underlying conduction system disease. He has tried metoprolol in the past, but there was a concern for low blood pressure and hence not taking anymore. Otherwise, continue anticoagulation. He has a history of nosebleeds as well as GI bleeding from gastric ulcer related to aspirin. Hence avoid aspirin/NSAIDs. (2) Normally functioning cardiac pacemaker present: Code(s): Z95.0 - Presence of cardiac pacemaker Plan: Check today and with normal function. We can follow this remotely. (3) SHORTY (obstructive sleep apnea): Code(s): G47.33 - Obstructive sleep apnea (adult) (pediatric) Plan: Mild SHORTY but patient not preferring CPAP. (4) Precordial chest pain: Code(s): R07.2 - Precordial pain Plan: Echocardiogram with LVEF of 50-55%. [id number] mitral regurgitation. Myocardial perfusion imaging study with small fixed defect in the mid to distal inferior wall-artifact versus infarct. Diminished LVEF. There was question of chest pain last time, but essentially he has pain everywhere in his body including constitutional symptoms and generalized malaise extra. Considering his age, frailty, test findings, recommend conservative care. Plan Total time spent including review of data, counseling, documentation, coordination of care-35 minutes. This excludes pacemaker evaluation. Coding Level of Care Code Est Pt Level 4 (91297) Diagnoses PAF (paroxysmal atrial fibrillation) I48.0 Normally functioning cardiac pacemaker present Z95.0 SHORTY (obstructive sleep apnea) G47.33 Precordial chest pain R07.2 CPT Codes Cardiac Device Check - Cardiac Device 2: [id number] Cardiac Device Check, pacemaker dual lead ([id number])
== END 2023-02-07 13:47 | disposition home or self-care (01) ==
PROVIDERS: PCP Internal Medicine; Referring Provider Internal Medicine; Visit Provider Internal Medicine
DX: I48.0 Paroxysmal atrial fibrillation (principal); Z95.0 Presence of cardiac pacemaker; G47.33 Obstructive sleep apnea (adult) (pediatric); R07.2 Precordial pain
CPT/HCPCS: 93280; 99214

== ENCOUNTER → 2023-02-07 13:00 | Outpatient (BNVA) | payer MEDICARE, SELFPAY | PROVIDERS: PCP Internal Medicine; Referring Provider Internal Medicine; Visit Provider Internal Medicine | DX: I48.0 Paroxysmal atrial fibrillation (principal); G47.33 Obstructive sleep apnea (adult) (pediatric); R07.2 Precordial pain; Z79.01 Long term (current) use of anticoagulants; Z45.018 Encounter for adjustment and management of other part of cardiac pacemaker | CPT/HCPCS: 93280; 99212 ==

== ENCOUNTER 2023-02-10 12:54 | Outpatient (REF) | payer MEDICARE, SELFPAY ==
--- NOTE | ~2023-02-10 | US_ITS ---
EXAMINATION: Bilateral LOWER EXTREMITY DUPLEX CLINICAL INFORMATION: Abnormal PVRs but normal ABIs COMPARISON: Noninvasive vascular assessment 01/05/2023 TECHNIQUE: Real-time ultrasound and Doppler techniques (integrating B-mode 2-D vascular images, Doppler spectral analysis and color flow Doppler imaging) were utilized to interrogate the lower extremities. FINDINGS: RIGHT LEG: Common femoral artery: 161 cm/s, biphasic Profunda femoris artery: 96.7 cm/s, biphasic Superficial femoral artery (proximal): 108 cm/s, triphasic Superficial femoral artery (mid): 156 cm/s, triphasic Superficial femoral artery (distal): 123 cm/s, triphasic Popliteal artery: 82.1 cm/s, triphasic Posterior tibial artery: 36.9 cm/s, biphasic Anterior tibial artery: 88.5 cm/s, biphasic Peroneal artery: 155 cm/s, biphasic LEFT LEG: Common femoral artery: 86.8 cm/s, biphasic Profunda femoris artery: 96.7 cm/s, biphasic Superficial femoral artery (proximal): 97.3 cm/s, biphasic Superficial femoral artery (mid): 112 cm/s, biphasic Superficial femoral artery (distal): 98.5 cm/s, biphasic Popliteal artery: 93.8 cm/s, biphasic Posterior tibial artery: 196 cm/s, turbulent flow Anterior tibial artery: 44.4 cm/s, biphasic Peroneal artery: 84.4 cm/s, biphasic US/US arterial duplex LE BI IMPRESSION: 1. Atherosclerotic plaque in the right common femoral artery and mid to distal superficial femoral artery causing mild stenoses. 2. Plaque causing stenosis of the proximal right peroneal artery. 3. Occlusion in the left posterior tibial artery with turbulent, reversed flow distally and a collateral in this vicinity.
== END 2023-02-10 12:55 | disposition home or self-care (01) ==
LOC: HO.US 12:54
PROVIDERS: PCP Internal Medicine; Visit Provider Nurse Practitioner Family
DX: R60.0 Localized edema (principal); R68.89 Other general symptoms and signs; I70.201 Unspecified atherosclerosis of native arteries of extremities, right leg
CPT/HCPCS: 93925

== ENCOUNTER → 2023-02-26 23:59 | Outpatient (BNV) | payer MEDICARE, SELFPAY ==
--- NOTE | 2023-03-06 13:15 | MHC.OFFVIS ---
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 Mother Diabetes Cancer Son No problems noted. Son No problems noted. Social History Housing: House Alcohol intake: never Patient Tobacco Use Status: Never used Tobacco e-Cigarette/Vaping Use: Never Used Second Hand Smoke Exposure: No Advance Directives Date on File: 12/08/20 service: No Current occupational status: retired Cognitive needs: Yes Hearing needs: Yes Vision needs: Yes Office Procedures Cardiac Device Check Cardiac Device Check Details: Date of service- 02/26/2023 ; Battery life >7 years; normal lead parameters; AP 43%; [employer] 98%; atrial fibrillation with controlled rate episodes, burden 3.1%. Overall normal device function. [id number] Cardiac Device Interrogation, pacemaker Procedure code (CPT) selection complete Assessment & Plan Assessment & Plan (1) PAF (paroxysmal atrial fibrillation): Code(s): I48.0 - Paroxysmal atrial fibrillation (2) SSS (sick sinus syndrome): Code(s): I49.5 - Sick sinus syndrome Coding Level of Care Code Procedure Only Diagnoses PAF (paroxysmal atrial fibrillation) I48.0 SSS (sick sinus syndrome) I49.5 CPT Codes Cardiac Device Check - Cardiac Device 12: [id number] Cardiac Device Interrogation, pacemaker ([id number])
== END ==
PROVIDERS: PCP Internal Medicine; Visit Provider Internal Medicine
DX: I48.0 Paroxysmal atrial fibrillation (principal); Z95.0 Presence of cardiac pacemaker
CPT/HCPCS: 93294

== ENCOUNTER 2023-03-01 09:05 | Outpatient (REF) | payer MEDICARE, SELFPAY ==
[2023-03-01 10:43] LABS: Appearance Urine Cloudy; Bacteria Urine None Seen (None Seen); Color Urine Orange; Glucose Urine UA Negative (Negative); Hyaline Casts Urine 0-2 /LPF (0-2); Leukocyte Esterase Urine Trace (Negative); Nitrite Urine Negative (Negative); RBC Urine >20 /HPF (0-2); Squamous Epithelial Cell Urine 0-2 /HPF (0-2); UMIC TRIGGER UACC YES; Urine Blood Large (3+) (Negative); Urine Ketones Negative (Negative); Urine Protein 100 (2+) mg/dL (Neg-Trace); WBC Urine 0-5 /HPF (0-5)
== END 2023-03-01 09:06 | disposition home or self-care (01) ==
LOC: HO.LAB 09:05
PROVIDERS: PCP Internal Medicine; Visit Provider Internal Medicine
DX: R39.9 Unspecified symptoms and signs involving the genitourinary system (principal)
CPT/HCPCS: 81001

== ENCOUNTER 2023-03-31 14:57 | Outpatient (AMB) | payer MEDICARE, SELFPAY ==
--- NOTE | 2023-03-31 14:59 | MHC.OFFVIS ---
Intake Vital Signs 03/31/23 15:02 Height 6 ft Weight 170 lb BMI 23.1 Intake Visit Reasons: ADVERTISING COORDINATOR Edema Intake Note: ADVERTISING COORDINATOR here for edema on both legs .Pt says he has swelling on and off he don't feel like its to severe at the moment.sometimes he gets pain after walking alot but for the most part no pain. Accompanied by: Spouse Allergies oxycodone Allergy (Unknown, Verified 03/31/23 15:02) hives aspirin Adverse Reaction (Intermediate, Verified 03/31/23 15:02) bleeding HPI ADVERTISING COORDINATOR Edema HPI Details Very pleasant 87-year-old gentleman presents for evaluation regarding peripheral vascular disease. His biggest complaint at the current time is that his extremities are cold. He has had some mild swelling of the lower extremities but he has upper and lower extremity cold sensation. He reports a lack of energy. And in general he feels tired. He is quite concerned about all of this. He presents for vascular evaluation with noninvasive testing [facility] Medical History Cold intolerance Retrognathia COVID-19 vaccine series completed History of blood transfusion PAF (paroxysmal atrial fibrillation) SSS (sick sinus syndrome) Blood type O+ Atrial fibrillation History of cataract Pulmonary nodule CKD (chronic kidney disease) History of gastric ulcer Loose right total knee arthroplasty Renal cancer Diverticulitis Kidney stones Erectile dysfunction Psoriasis Osteoarthritis BPH (benign prostatic hyperplasia) Neoplasm of right kidney Pacemaker Surgical History Hx of cataract surgery History of prostate surgery H/O lithotripsy Hx of tonsillectomy History of esophagogastroduodenoscopy (EGD) History of bilateral cataract extraction History of total right knee replacement History of total left knee replacement Family History Father No problems noted. Mother Diabetes Cancer Son No problems noted. Son No problems noted. Social History Housing: House Alcohol intake: never Patient Tobacco Use Status: Never used Tobacco e-Cigarette/Vaping Use: Never Used Second Hand Smoke Exposure: No Advance Directives Date on File: 12/08/20 service: No Current occupational status: retired Cognitive needs: Yes Hearing needs: Yes Vision needs: Yes Review of Systems Const All systems reviewed & are unremarkable except as noted in HPI and below Reports no additional complaints ENT Reports Normal hearing present Card Denies chest pain, Denies chest pain at rest, Denies chest pain with activity and Denies pedal edema Resp Denies cough GI Denies abdominal pain Musc Denies abnormal gait, Denies muscle cramps and Denies radiating pain into limb Skin/Breast Denies skin ulcer and Denies wounds Neuro Reports Normal hearing present and Denies abnormal gait Psych Reports no additional complaints Physical Exam Vital Signs: BMI result Body Mass Index 23.1 Const General: cooperative, healthy appearing and comfortable Orientation/consciousness: oriented to person, oriented to place and oriented to time HEENT Head: Yes normal to inspection Neck Neck: Yes normal visual inspection Carotids: no bruits Chest Chest palpation & inspection: normal inspection of the chest Resp Effort & Inspection: normal respiratory effort and able to speak in complete sentences Auscultation: clear to auscultation bilaterally, no crackles, no rales, no rhonchi and no wheezes Cardio Other: Palpable bilateral DP pulses Rate: regular rate Rhythm: regular rhythm Heart sounds: S1 normal heart sound present and S2 normal heart sound present Bruits: no carotid bruits Peripheral pulses: Peripheral pulses 2+ throughout GI Inspection: Yes normal to inspection Skin Wounds: no wounds Hair: normal Neuro General: oriented to person, oriented to place and oriented to time Cranial nerves: Yes CN's II-XII intact bilaterally and Yes Normal hearing present Cognition (Neuro): normal cognition Motor exam (neuro): 5/5 motor strength present throughout Extrem Other: venous exam: No significant superficial varicosities or spider telangiectasias, minimal edema General: No clubbing, No cyanosis and No edema Psych Appearance: grossly normal Mental Status: mental status grossly normal Speech and movement: Normal speech and movement present Results Reviewed Results Reviewed: Noninvasive arterial testing dated 02/10/2023 demonstrates reasonable flow all the way down with biphasic flow. Written report and images were reviewed. Assessment & Plan Assessment & Plan (1) Cold intolerance: Code(s): R68.89 - Other general symptoms and signs Plan: In short I feel that his biggest complaint is cold intolerance. He does not have any significant risk factors for peripheral vascular disease. He is a nonsmoker nondiabetic. From an arterial standpoint he has palpable pulses in noninvasive testing appears to be within normal limits. He may have a mild element of Raynaud's disease. We did discuss handed foot protection and minimizing caffeine intake. Although he does not drink coffee, and mostly herbal teas. He did seemed disappointed that there was no vascular cause of his issues. I did explain this to him and his . Should symptoms persist may benefit from rheumatologic evaluation. He will follow up with us on an as-needed basis. Thank you for allowing us to assist in his care. If there are any questions or concerns please do not hesitate to contact us. Coding Level of Care Code New Pt Level 4 (72908) Diagnoses Cold intolerance R68.89
[2023-03-31 15:02] VITALS: BMI 23.1
== END 2023-03-31 15:34 | disposition home or self-care (01) ==
PROVIDERS: PCP Internal Medicine; Visit Provider Surgery Vascular Surgery
DX: R68.89 Other general symptoms and signs (principal)
CPT/HCPCS: 99203

== ENCOUNTER → 2023-03-31 14:57 | Outpatient (BNVA) | payer MEDICARE, SELFPAY | PROVIDERS: PCP Internal Medicine; Visit Provider Surgery Vascular Surgery | DX: I73.9 Peripheral vascular disease, unspecified (principal); R68.89 Other general symptoms and signs | CPT/HCPCS: 99202 ==

== ENCOUNTER 2023-04-08 15:26 | Outpatient (AMB) | payer MEDICARE, SELFPAY ==
--- NOTE | 2023-04-08 15:29 | A.OFFPC_ITS ---
Vital Signs 04/08/23 15:30 Height 6 ft Weight 168 lb BMI 22.8 BP 138/62 Blood Pressure Location Lt brachial Position Sitting Pulse 52 Pulse Source Pulse Oximeter Pulse Oximetry (%) 98 Oxygen Delivery Method Room Air Intake Visit Reasons: chronic kidney disease hypertension Community Relations Representative Required: No Accompanied by: Self / Same As Patient Allergies oxycodone Allergy (Unknown, Verified 04/08/23 15:33) hives aspirin Adverse Reaction (Intermediate, Verified 03/31/23 15:02) bleeding Tobacco use date assessed: 12/17/22 Fall risk assessment: No Falls in past year Last assessed Fall Risk: 04/08/23 Dental Screening Dental Screen Date: 04/08/23 Did you have a dental visit in the last 12 months?: Yes Did you have a dental problem in the last 6 months where you did not have access to dental care?: No Was dental information given to patient?: Patient has dentist HPI chronic kidney disease hypertension HPI Details 87-year-old male with a history of chron ic kidney disease stage IIIA followed up by Nephrology right kidney cancer, BPH atrial fibrillation with sick sinus syndrome on having a pacemaker chronic anemia and hypertension last seen in September 2022. Patient is here for follow-up review of the notes patient has seen the vascular surgeon due to lower extremity swelling but was not found to have any problem vascular friedman.. Patient had ultrasound of the arterial system of the lower extremities showing:Atherosclerotic plaque in the right common femoral artery and mid to distal superficial femoral artery causing mild stenoses. 2. Plaque causing stenosis of the proxi mal right peroneal artery. 3. Occlusion in the left posterior tibi al artery with turbulent, reversed flow distally and a collateral in this vicinity. January 2023 Echocardiogram doneLow normal LV ejection fraction of 50-55% with mild LVH and impaired relaxation filling pattern 2. Mildly dilated left atrium 3. Apuf-zi-opdospgx mitral regurgitation 4. Normal RV systolic pressure 5. Upper limits normal ascending aortic size at 3.6 cm 6. No pericardial effusion January 2023 And nuclear stress test done December 2022 Myocardial perfusion imaging study shows small fixed defect in the mid to distal inferior wall which could be from artifact; cannot exclude prior infarct. No clear ischemia. 2. Gated LVEF is 37% during stress and 40% during rest. Correlate with echocardiogram. 3. Transient ischemic dilatation not pre sent. Patient did see Nephrology October 2019 [facility] Medical History Cold intolerance Retrognathia COVID-19 vaccine series completed History of blood transfusion PAF (paroxysmal atrial fibrillation) SSS (sick sinus syndrome) Blood type O+ Atrial fibrillation History of cataract Pulmonary nodule CKD (chronic kidney disease) History of gastric ulcer Loose right total knee arthroplasty Renal cancer Diverticulitis Kidney stones Erectile dysfunction Psoriasis Osteoarthritis BPH (benign prostatic hyperplasia) Neoplasm of right kidney Pacemaker Surgical History Hx of cataract surgery History of prostate surgery H/O lithotripsy Hx of tonsillectomy History of esophagogastroduodenoscopy (EGD) History of bilateral cataract extraction History of total right knee replacement History of total left knee replacement Family History Father No problems noted. Mother Diabetes Cancer Son No problems noted. Son No problems noted. Social History Housing: House Alcohol intake: never Patient Tobacco Use Status: Never used Tobacco e-Cigarette/Vaping Use: Never Used Second Hand Smoke Exposure: No Advance Directives Date on File: 12/08/20 service: No Current occupational status: retired Cognitive needs: Yes Hearing needs: Yes Vision needs: Yes Questionnaire Thrive Questionnaire Date Thrive assessed: 10/22/22 CALI-7 AMB Questionnaire CALI-7 Date CALI - 7 assessed: 10/22/22 Source: Developed by Drs. Ronan Johnston, Malu Yanes, Josse Tamayo and colleagues, with an educational todd from [employer]. Physical exam (Primary Care) Vital Signs: Last Vital Signs Pulse 52 04/08/23 15:30 BP 138/62 04/08/23 15:30 Pulse Ox 98 04/08/23 15:30 Oxygen Delivery Method Room Air 04/08/23 15:30 BMI result Body Mass Index 22.8 Tobacco/Smoking Status: Tobacco use Status Tobacco use date assessed 12/17/22 04/08/23 15:37 Patient Tobacco Use Status Never used Tobacco 04/08/23 15:37 e-Cigarette/Vaping Use Never Used 04/08/23 15:37 Thrive Assessment: Date of Thrive Assessment Date Thrive assessed 10/22/22 04/08/23 15:37 Const General: alert; No acute distress HENMT Other: impacted cerumen bilateral Eyes Conjunctivae: conjunctivae normal Resp Auscultation: clear to auscultation bilaterally Cardio Rate: regular rate Rhythm: regular rhythm GI Inspection: Yes normal to inspection Extrem General: Yes normal to inspection and No edema Office Procedures Cerumen Removal From which ear canal was the cerumen removed: bilateral Removal: irrigation, otoscope w/curette, cerumen loop/spoon and other Notes: patient tolerated procedure well, no complications and ear canal clear [id number] Irrigation/Lavage Assessment and Plan Assessment & Plan (1) Chronic kidney disease, stage 3a: Code(s): N18.31 - Chronic kidney disease, stage 3a Plan: Stable, keep well hydrated avoid NSAIDs controlled blood pressure (2) SSS (sick sinus syndrome): Code(s): I49.5 - Sick sinus syndrome Plan: On pacemaker and interrogated (3) PAF (paroxysmal atrial fibrillation): Code(s): I48.0 - Paroxysmal atrial fibrillation Plan: Continue with anticoagulation continue with monitoring renal function (4) BPH (benign prostatic hyperplasia): Comment: [employer] laser enucleation of the prostate Dr. Ch November 2020 Code(s): N40.0 - Benign prostatic hyperplasia without lower urinary tract symptoms Qualifiers: Lower urinary tract symptom detail: urinary frequency Lower urinary tract symptom presence: symptoms present Qualified Code(s): N40.1 - Benign prostatic hyperplasia with lower urinary tract symptoms; R35.0 - Frequency of micturition Plan: Continue with tamsulosin (5) Essential hypertension: Code(s): I10 - Essential (primary) hypertension Plan: Continue with blood pressure medication. Decrease salt intake and exercise patient on hydrochlorothiazide 12.5 mg once a day (6) Anemia: Code(s): D64.9 - Anemia, unspecified Qualifiers: Anemia type: unspecified type Qualified Code(s): D64.9 - Anemia, unspecified Plan: Anemia of chronic disease, stable (7) Peripheral vascular disease: Code(s): I73.9 - Peripheral vascular disease, unspecified Plan: When sitting down elevate the legs, exercise, and support stockings (8) Impacted cerumen of both ears: Code(s): H61.23 - Impacted cerumen, bilateral Plan: irrigation and scoop used TM itact, Orders: Referrals Nephrology Referral N18.31 - Chronic kidney disease, stage 3a Coding Level of Care Code Est Pt Level 4 (81447) Diagnoses Chronic kidney disease, stage 3a N18.31 SSS (sick sinus syndrome) I49.5 PAF (paroxysmal atrial fibrillation) I48.0 Benign prostatic hyperplasia with urinary frequency N40.1; R35.0 Lower urinary tract symptom detail: urinary frequency Lower urinary tract symptom presence: symptoms present Essential hypertension I10 Anemia, unspecified type D64.9 Anemia type: unspecified type Peripheral vascular disease I73.9 Impacted cerumen of both ears H61.23 CPT Codes Office Procedure - CPT: 41100-[id number] Irrigation/Lavage ([id number])
[2023-04-08 15:30] VITALS: BP 138/62; PULSE 52; O2SAT 98; BMI 22.8
== END 2023-04-08 16:25 | disposition home or self-care (01) ==
PROVIDERS: PCP Internal Medicine; Visit Provider Internal Medicine
DX: N18.31 Chronic kidney disease, stage 3a (principal); I49.5 Sick sinus syndrome; I48.0 Paroxysmal atrial fibrillation; I73.9 Peripheral vascular disease, unspecified; H61.23 Impacted cerumen, bilateral; N40.1 Benign prostatic hyperplasia with lower urinary tract symptoms; R35.0 Frequency of micturition; I10 Essential (primary) hypertension; D64.9 Anemia, unspecified
CPT/HCPCS: 69210; 99214

== ENCOUNTER 2023-04-19 11:50 | Outpatient (AMB) | payer MEDICARE, SELFPAY ==
[2023-04-19 11:54] VITALS: BP 122/86; PULSE 59; O2SAT 99; BMI 22.8
--- NOTE | 2023-04-19 11:54 | HO.NEPHOV_ITS ---
HPI HPI Comments History of Present Illness Details 87-year-old man with a history of longst anding hypertension and chronic kidney disease. He has a history of a renal mass status post cryoablation. From renal standpoint is doing very well. No urine symptoms No hematuria. No shortness of breath PFSH Medical History Cold intolerance Retrognathia COVID-19 vaccine series completed History of blood transfusion PAF (paroxysmal atrial fibrillation) SSS (sick sinus syndrome) Blood type O+ Atrial fibrillation History of cataract Pulmonary nodule CKD (chronic kidney disease) History of gastric ulcer Loose right total knee arthroplasty Renal cancer Diverticulitis Kidney stones Erectile dysfunction Psoriasis Osteoarthritis BPH (benign prostatic hyperplasia) Neoplasm of right kidney Pacemaker Surgical History Hx of cataract surgery History of prostate surgery H/O lithotripsy Hx of tonsillectomy History of esophagogastroduodenoscopy (EGD) History of bilateral cataract extraction History of total right knee replacement History of total left knee replacement Family History Father No problems noted. Mother Diabetes Cancer Son No problems noted. Son No problems noted. Social History Housing: House Alcohol intake: never Patient Tobacco Use Status: Never used Tobacco e-Cigarette/Vaping Use: Never Used Second Hand Smoke Exposure: No Advance Directives Date on File: 12/08/20 service: No Current occupational status: retired Cognitive needs: Yes Hearing needs: Yes Vision needs: Yes Vital Signs 04/19/23 11:54 Height 6 ft Weight 168 lb BMI 22.8 BP 122/86 Blood Pressure Location Rt brachial Position Sitting Pulse 59 Pulse Source Pulse Oximeter Pulse Oximetry (%) 99 Oxygen Delivery Method Room Air Physical Exam Vital Signs: Last Vital Signs Pulse 59 04/19/23 11:54 BP 122/86 04/19/23 11:54 Pulse Ox 99 04/19/23 11:54 Oxygen Delivery Method Room Air 04/19/23 11:54 BMI result Body Mass Index 22.8 Const General: comfortable; No acute distress Orientation/consciousness: patient oriented x3 Eyes General: appearance normal, both eyes and all related structures Visual Brothers: normal visual brothers by confrontation Neck Neck: Yes supple and Yes no JVD Resp Effort & Inspection: normal respiratory effort and respiratory effort not decreased Auscultation: rhonchi Cardio Palpation: no palpable S3 and no palpable S4 Heart sounds: no rubs GI Inspection: Yes normal to inspection Palpation (GI): Soft to palpation Percussion: Yes normal to percussion Auscultation: normal bowel sounds General: Yes no CVA tenderness Back/Spine/Pelvis Back: no CVA tenderness Skin General skin exam: no petechiae and no purpura Neuro General: patient oriented x3 and no focal motor deficits Extrem General: No clubbing and No edema Results Reviewed Results Reviewed: Labs reviewed. Renal ultrasonogram in August 2022 revealed a 3.5 cm solid mass in the mid pole of right kidney. Assessment & Plan Assessment & Plan (1) Chronic kidney disease, stage 3a: Code(s): N18.31 - Chronic kidney disease, stage 3a (2) Essential hypertension: Code(s): I10 - Essential (primary) hypertension (3) Neoplasm of right kidney: Comment: s/p cryoablation right renal tumor Dr. Tatum 04/14/2016 Code(s): D49.511 - Neoplasm of unspecified behavior of right kidney Plan Master has stage III chronic disease in a setting of longstanding hypertension. Overall renal function stable with a creatinine of around 1.2 mg/dL. Goal is to slow the progression of renal disease Our nephrotoxic agents. Maintain blood pressure less than 130/80. He has a renal mass. Status post cryoablation in the past. He needs Urology follow-up. Orders: Orders Electrolytes 04/19/23 N18.31 - Chronic kidney disease, stage 3a Creatinine 04/19/23 N18.31 - Chronic kidney disease, stage 3a Calcium 04/19/23 N18.31 - Chronic kidney disease, stage 3a Complete Blood Count no Diff 04/19/23 N18.31 - Chronic kidney disease, stage 3a Blood Urea Nitrogen 04/19/23 N18.31 - Chronic kidney disease, stage 3a Coding Level of Care Code Est Pt Level 3 (66373) Diagnoses Chronic kidney disease, stage 3a N18.31 Essential hypertension I10 Neoplasm of right kidney D49.511
== END 2023-04-19 12:13 | disposition home or self-care (01) ==
PROVIDERS: PCP Internal Medicine; Visit Provider Internal Medicine Hypertension Specialist
DX: N18.31 Chronic kidney disease, stage 3a (principal); I10 Essential (primary) hypertension; D49.511 Neoplasm of unspecified behavior of right kidney
CPT/HCPCS: 99213

== ENCOUNTER → 2023-04-19 11:50 | Outpatient (BNVA) | payer MEDICARE, SELFPAY | PROVIDERS: PCP Internal Medicine; Visit Provider Internal Medicine Hypertension Specialist | DX: I12.9 Hypertensive chronic kidney disease with stage 1 through stage 4 chronic kidney disease, or unspecified chronic kidney disease (principal); N18.31 Chronic kidney disease, stage 3a; D49.511 Neoplasm of unspecified behavior of right kidney | CPT/HCPCS: 99212 ==

== ENCOUNTER 2023-04-19 12:22 | Outpatient (REF) | payer MEDICARE, SELFPAY ==
[2023-04-19 13:17] LABS: Hematocrit 37.7 % (42.0-52.0); Hemoglobin 12.6 g/dl (14.0-18.0); Mean Corpuscular HGB Conc 33.4 g/dl (31.0-36.0); Mean Corpuscular Hemoglobin 31.4 pg (27.0-33.0); Mean Platelet Volume 11.2 fL (9.4-12.4); Platelet Count 149 X10*3/uL (160-400); Red Blood Count 4.01 X10*6/uL (4.60-5.80); White Blood Count 5.1 X10*3/uL (4.8-10.8)
[2023-04-19 13:34] LABS: Anion Gap 9 (12-20); Blood Urea Nitrogen 25 mg/dL (9-16); Calcium 9.5 mg/dL (8.4-10.2); Carbon Dioxide 31 mmol/L (22-29); Chloride 100 mmol/L (96-108); Estimated Glomerular Filt Rate 46; Sodium 136 mmol/L (135-145)
== END 2023-04-19 12:23 | disposition home or self-care (01) ==
LOC: HO.10HDL 12:22
PROVIDERS: Visit Provider Internal Medicine Hypertension Specialist
DX: N18.31 Chronic kidney disease, stage 3a (principal)
CPT/HCPCS: 36415; 80051; 82310; 82565; 84520; 85027

== ENCOUNTER → 2023-05-27 23:59 | Outpatient (BNV) | payer MEDICARE, SELFPAY ==
--- NOTE | 2023-05-31 14:59 | MHC.OFFVIS ---
Intake Intake Visit Reasons: Remote Device Check- [employer] Allergies oxycodone Allergy (Unknown, Verified 04/19/23 11:54) hives aspirin Adverse Reaction (Intermediate, Verified 04/19/23 11:54) bleeding PFSH Medical History Cold intolerance Retrognathia COVID-19 vaccine series completed History of blood transfusion PAF (paroxysmal atrial fibrillation) SSS (sick sinus syndrome) Blood type O+ Atrial fibrillation History of cataract Pulmonary nodule CKD (chronic kidney disease) History of gastric ulcer Loose right total knee arthroplasty Renal cancer Diverticulitis Kidney stones Erectile dysfunction Psoriasis Osteoarthritis BPH (benign prostatic hyperplasia) Neoplasm of right kidney Pacemaker Surgical History Hx of cataract surgery History of prostate surgery H/O lithotripsy Hx of tonsillectomy History of esophagogastroduodenoscopy (EGD) History of bilateral cataract extraction History of total right knee replacement History of total left knee replacement Family History Father No problems noted. Mother Diabetes Cancer Son No problems noted. Son No problems noted. Social History Housing: House Alcohol intake: never Patient Tobacco Use Status: Never used Tobacco e-Cigarette/Vaping Use: Never Used Second Hand Smoke Exposure: No Advance Directives Date on File: 12/08/20 service: No Current occupational status: retired Cognitive needs: Yes Hearing needs: Yes Vision needs: Yes Office Procedures Cardiac Device Check Cardiac Device Check Details: Date of service- 05/27/2023 ; Battery life >7 years; normal lead parameters; AP >39%; INJECTION MOLDING OPERATOR >98%; time in AT/AF 5%, controlled rates. Overall normal device function. [id number] Cardiac Device Interrogation, pacemaker Procedure code (CPT) selection complete Assessment & Plan Assessment & Plan (1) SSS (sick sinus syndrome): Code(s): I49.5 - Sick sinus syndrome Plan x Coding Level of Care Code Procedure Only Diagnoses SSS (sick sinus syndrome) I49.5 CPT Codes Cardiac Device Check - Cardiac Device 12: [id number] Cardiac Device Interrogation, pacemaker ([id number])
== END ==
PROVIDERS: PCP Internal Medicine; Visit Provider Internal Medicine
DX: I49.5 Sick sinus syndrome (principal); Z95.0 Presence of cardiac pacemaker
CPT/HCPCS: 93294

== ENCOUNTER 2023-07-08 14:19 | Outpatient (REF) | payer MEDICARE, SELFPAY ==
[2023-07-08 14:36] LABS: MANUAL DIFF FLAG NO
[2023-07-08 15:34] LABS: Basophils Percent Auto 0.2 % (0-2); Eosinophils Percent Auto 0.7 % (0-4); Hematocrit 38.1 % (42.0-52.0); Hemoglobin 12.9 g/dl (14.0-18.0); Imm Gran Abs Auto 0.01 X10*3/uL (0.00-0.03); Imm Gran Pct Auto 0.2 % (0.0-0.4); Immature Retic Fraction 0.8 % (2.3-13.4); Lymphocytes Absolute Auto 1.1 X10*3/uL (1.2-4.9); Lymphocytes Percent Auto 17.7 % (20-40); Mean Corpuscular HGB Conc 33.9 g/dl (31.0-36.0); Mean Corpuscular Hemoglobin 31.5 pg (27.0-33.0); Mean Corpuscular Volume 93.2 fL (80.0-98.0); Mean Platelet Volume 11.8 fL (9.4-12.4); Monocytes Absolute Auto 0.3 X10*3/uL (0.1-1.2); Monocytes Percent Auto 5.6 % (2-11); Neutrophils Absolute Auto 4.6 x10*3/uL (2.0-8.3); Neutrophils Percent Auto 75.6 % (45-73); Platelet Count 157 X10*3/uL (160-400); Red Blood Count 4.09 X10*6/uL (4.60-5.80); Retic HGB Equivalent 36.9 pg (30.0-35.0); Reticulocyte Percent 0.8 % (0.5-1.8); Reticulocytes Absolute 0.032 X10*6/uL (0.026-0.095); White Blood Count 6.1 X10*3/uL (4.8-10.8)
[2023-07-08 16:20] LABS: Alanine Aminotransferase 15 U/L (0-40); Albumin Level 3.8 g/dL (3.5-5.0); Alkaline Phosphatase 80 U/L (39-117); Anion Gap 13 (12-20); Aspartate Amino Transferase 18 U/L (5-37); Bilirubin Total 0.5 mg/dL (0.0-1.0); Blood Urea Nitrogen 33 mg/dL (9-16); Calcium 9.4 mg/dL (8.4-10.2); Carbon Dioxide 26 mmol/L (22-29); Chloride 103 mmol/L (96-108); Estimated Glomerular Filt Rate 48; Glucose Random 170 mg/dL (60-115); Iron 81 mcg/dL (45-160); Percent Iron Saturation 27 % (15-50); Potassium 3.8 mmol/L (3.3-5.1); Sodium 138 mmol/L (135-145); Total Iron Binding Capacity 297 mcg/dL (228-428); Total Protein 6.8 g/dL (6.5-8.0); Unsaturated Iron Binding 216 ug/dL
[2023-07-08 16:41] LABS: Ferritin 80 ng/mL (20-250); Free T4 (Free Thyroxine) 0.97 ng/dL (0.71-1.85); Thyroid Stimulating Hormone 0.56 uIU/mL (0.32-4.0)
[2023-07-08 16:45] LABS: Folate 13.6 ng/mL (> or = 4.0); Vitamin B12 1588 pg/mL (200-900)
== END 2023-07-08 14:20 | disposition home or self-care (01) ==
LOC: HO.LAB 14:19
PROVIDERS: PCP Internal Medicine; Visit Provider Internal Medicine
DX: I10 Essential (primary) hypertension (principal)
CPT/HCPCS: 36415; 80053; 82607; 82728; 82746; 83540; 84439; 84443; 85025; 85045

== ENCOUNTER 2023-07-11 15:23 | Outpatient (REF) | payer MEDICARE, SELFPAY ==
[2023-07-11 15:43] LABS: Appearance Urine Clear; Color Urine Yellow; Glucose Urine UA Negative (Negative); Leukocyte Esterase Urine Trace (Negative); Nitrite Urine Negative (Negative); PH 5.5 (5.0-9.0); UMIC TRIGGER UACC YES; Urine Blood Negative (Negative); Urine Ketones Negative (Negative); Urine Protein Negative (Neg-Trace)
[2023-07-11 16:26] LABS: Bacteria Urine None Seen (None Seen); Hyaline Casts Urine 0-2 /LPF (0-2); RBC Urine 0-2 /HPF (0-2); Squamous Epithelial Cell Urine 0-2 /HPF (0-2); WBC Urine 0-5 /HPF (0-5)
== END 2023-07-11 15:24 | disposition home or self-care (01) ==
LOC: HO.LNP 15:23
PROVIDERS: Visit Provider Internal Medicine
DX: R39.9 Unspecified symptoms and signs involving the genitourinary system (principal)
CPT/HCPCS: 81001; 81003

== ENCOUNTER 2023-07-14 14:36 | Outpatient (AMB) | payer MEDICARE, SELFPAY ==
[2023-07-14 14:53] VITALS: BP 122/84; PULSE 87; O2SAT 92; BMI 22.6
--- NOTE | 2023-07-14 14:53 | A.OFFPC_ITS ---
Vital Signs 07/14/23 14:53 Height 6 ft Weight 167 lb BMI 22.6 Blood Pressure Location Lt brachial Position Sitting Pulse Source Pulse Oximeter Oxygen Delivery Method Room Air Intake Visit Reasons: 3 month f/u Speech Pathology Assistant Required: No Florist Supplies Salesperson: Not Required per policy Accompanied by: Self / Same As Patient Allergies oxycodone Allergy (Unknown, Verified 07/14/23 14:54) hives aspirin Adverse Reaction (Intermediate, Verified 07/14/23 14:54) bleeding Tobacco use date assessed: 07/14/23 Fall risk assessment: No Falls in past year Last assessed Fall Risk: 07/14/23 Dental Screening Dental Screen Date: 07/14/23 Did you have a dental visit in the last 12 months?: Yes Did you have a dental problem in the last 6 months where you did not have access to dental care?: No Was dental information given to patient?: Patient has dentist HPI 3 month f/u HPI Details 87-year-old male with a history of chron ic kidney disease stage IIIA, renal mass status post cryoablation sick sinus syndrome on pacemaker atrial fibrillation BPH hypertension chronic anemia peripheral vascular disease coming in for follow-up. Last seen in March 2023. Patient follows up with Nephrology seen in March 2023 stable [facility] Medical History Cold intolerance Retrognathia COVID-19 vaccine series completed History of blood transfusion PAF (paroxysmal atrial fibrillation) SSS (sick sinus syndrome) Blood type O+ Atrial fibrillation History of cataract Pulmonary nodule CKD (chronic kidney disease) History of gastric ulcer Loose right total knee arthroplasty Renal cancer Diverticulitis Kidney stones Erectile dysfunction Psoriasis Osteoarthritis BPH (benign prostatic hyperplasia) Neoplasm of right kidney Pacemaker Surgical History Hx of cataract surgery History of prostate surgery H/O lithotripsy Hx of tonsillectomy History of esophagogastroduodenoscopy (EGD) History of bilateral cataract extraction History of total right knee replacement History of total left knee replacement Family History Father No problems noted. Mother Diabetes Cancer Son No problems noted. Son No problems noted. Social History Housing: House Alcohol intake: never Patient Tobacco Use Status: Never used Tobacco e-Cigarette/Vaping Use: Never Used Second Hand Smoke Exposure: No Advance Directives Date on File: 12/08/20 service: No Current occupational status: retired Cognitive needs: Yes Hearing needs: Yes Vision needs: Yes Questionnaire PHQ-9 Over the last 2 weeks, how often have you been bothered by any of the following problems? 1. Little interest or pleasure in doing things: several days 2. Feeling down, depressed, or hopeless: several days 3. Trouble falling or staying asleep, or sleeping too much: several days 4. Feeling tired or having little energy: more than half the days 5. Poor appetite or overeating: not at all 6. Feeling bad about yourself - or that you are a failure or have let yourself or your family down: not at all 7. Trouble concentrating on things, such as reading the newspaper or watching television: several days 8. Moving or speaking so slowly that other people could have noticed. Or the opposite - being so fidgety or restless that you have been moving around a lot more than usual: not at all 9. Thoughts that you would be better off or of hurting yourself in some way: not at all Total score: 6 Depression Screening Interpretation: Negative Depression Screening Done: Yes 15099 - PHQ-9 Billing: Yes Source: Developed by Drs. Ronan Johnston, Malu Yanes, Josse Tamayo and colleagues, with an educational todd from [employer]. Thrive Questionnaire Date Thrive assessed: 07/14/23 I am a: Patient What is your living situation today?: I have a steady place to live Within the past 12 months, did the food you bought not last and you didn't have the money to get more?: Never true Within the past 12 months, did you worry whether your food would run out before you got money to buy more?: Never true Do you have trouble paying for medicines?: No Do you have trouble getting transportation to medical appointments?: No Do you have trouble paying your heating and electricity bill?: No Do you have trouble taking care of your child, family member or friend?: No Do you have trouble with day-to-day activities such as bathing, preparing meals, shopping, managing finances, etc.?: No Are you currently unemployed and looking for a job?: No Are you interested in more education?: No Please select the resources that you would like help with: None THRIVE Score: 0 AUDIT C Alcohol Use Questionnaire (AUDIT-C) 1. How often do you have a drink containing alcohol?: Never 3. How often do you have six or more drinks on one occasion?: Never Total Score: 0 Score Reviewed/Action Taken: No CALI-7 AMB Questionnaire CALI-7 Date CALI - 7 assessed: 07/14/23 Feeling nervous, anxious, or on edge: 0 = Not at all Not being able to stop or control worryin = Not at all Worrying too much about different things: 0 = Not at all Trouble relaxin = Not at all Being so restless that it is hard to sit still: 0 = Not at all Becoming easily annoyed or irritable: 0 = Not at all Feeling afraid as if something awful might happen: 0 = Not at all Total CALI-7 score (0-4 normal; 5-9 mild; 10-14 moderate; 15-21 severe): 0 Source: Developed by Drs. Ronan Johnston, Malu Yanes, Josse Tamayo and colleagues, with an educational todd from [employer]. Physical exam (Primary Care) Vital Signs: Oxygen Delivery Method Room Air 07/14/23 14:53 BMI result Body Mass Index 22.6 Tobacco/Smoking Status: Tobacco use Status Tobacco use date assessed 07/14/23 07/14/23 14:58 Patient Tobacco Use Status Never used Tobacco 07/14/23 14:58 e-Cigarette/Vaping Use Never Used 07/14/23 14:58 PHQ-9: PHQ-9 Score PHQ-9: Total score 6 07/14/23 14:58 Depression Screening Interpretation: Negative Thrive Assessment: Date of Thrive Assessment Date Thrive assessed 07/14/23 07/14/23 14:58 Const General: alert; No acute distress Eyes Conjunctivae: conjunctivae normal Resp Auscultation: clear to auscultation bilaterally Cardio Rate: regular rate Rhythm: regular rhythm GI Inspection: Yes normal to inspection Extrem General: Yes normal to inspection and No edema Assessment and Plan Assessment & Plan (1) CKD (chronic kidney disease): Comment: St 3, follows renal Stable at 08/2020 with 6 mo f/u Code(s): N18.9 - Chronic kidney disease, unspecified Qualifiers: Chronic kidney disease stage: stage 3 (moderate) Chronic kidney disease stage 3 subtype: stage 3b (GFR 30-44) Qualified Code(s): N18.32 - Chronic kidney disease, stage 3b Plan: Keep well hydrated avoid NSAIDs continue to monitor keep blood pressure under control (2) PAF (paroxysmal atrial fibrillation): Code(s): I48.0 - Paroxysmal atrial fibrillation Plan: Continue with anticoagulation with Xarelto (3) BPH (benign prostatic hyperplasia): Comment: [employer] laser enucleation of the prostate Dr. Ch November 2020 Code(s): N40.0 - Benign prostatic hyperplasia without lower urinary tract symptoms Qualifiers: Lower urinary tract symptom detail: urinary frequency Lower urinary tract symptom presence: symptoms present Qualified Code(s): N40.1 - Benign prostatic hyperplasia with lower urinary tract symptoms; R35.0 - Frequency of micturition Plan: Continue with tamsulosin and follows up with urology (4) Essential hypertension: Code(s): I10 - Essential (primary) hypertension Plan: Continue with blood pressure medication. Decrease salt intake and exercise on hydrochlorothiazide 12.5 mg once a day Coding Level of Care Code Est Pt Level 4 (79543) Diagnoses Stage 3b chronic kidney disease N18.32 Chronic kidney disease stage: stage 3 (moderate) Chronic kidney disease stage 3 subtype: stage 3b (GFR 30-44) PAF (paroxysmal atrial fibrillation) I48.0 Benign prostatic hyperplasia with urinary frequency N40.1; R35.0 Lower urinary tract symptom detail: urinary frequency Lower urinary tract symptom presence: symptoms present Essential hypertension I10
--- NOTE | 2023-07-14 15:00 | A.OFFPC_ITS ---
Vital Signs 07/14/23 14:53 Height 6 ft Weight 167 lb BMI 22.6 BP 122/84 Blood Pressure Location Lt brachial Position Sitting Pulse 87 Pulse Source Pulse Oximeter Pulse Oximetry (%) 92 Oxygen Delivery Method Room Air Intake Visit Reasons: 3 month f/u Allergies oxycodone Allergy (Unknown, Verified 07/14/23 14:54) hives aspirin Adverse Reaction (Intermediate, Verified 07/14/23 14:54) bleeding Tobacco use date assessed: 07/14/23 HPI 3 month f/u HPI Details 87-year-old male with a history of chron ic kidney disease stage IIIA, renal mass status post cryoablation sick sinus syndrome on pacemaker atrial fibrillation BPH hypertension chronic anemia peripheral vascular disease coming in for follow-up. Last seen in March 2023. Patient follows up with Nephrology seen in March 2023 stable. sore on L neck area - showing a skin tag and 5 mm sore , also has decreased hearing and wants flushing of ears. [facility] Medical History Cold intolerance Retrognathia COVID-19 vaccine series completed History of blood transfusion PAF (paroxysmal atrial fibrillation) SSS (sick sinus syndrome) Blood type O+ Atrial fibrillation History of cataract Pulmonary nodule CKD (chronic kidney disease) History of gastric ulcer Loose right total knee arthroplasty Renal cancer Diverticulitis Kidney stones Erectile dysfunction Psoriasis Osteoarthritis BPH (benign prostatic hyperplasia) Neoplasm of right kidney Pacemaker Surgical History Hx of cataract surgery History of prostate surgery H/O lithotripsy Hx of tonsillectomy History of esophagogastroduodenoscopy (EGD) History of bilateral cataract extraction History of total right knee replacement History of total left knee replacement Family History Father No problems noted. Mother Diabetes Cancer Son No problems noted. Son No problems noted. Social History Housing: House Alcohol intake: never Patient Tobacco Use Status: Never used Tobacco e-Cigarette/Vaping Use: Never Used Second Hand Smoke Exposure: No Advance Directives Date on File: 12/08/20 service: No Current occupational status: retired Cognitive needs: Yes Hearing needs: Yes Vision needs: Yes Questionnaire PHQ-9 Over the last 2 weeks, how often have you been bothered by any of the following problems? 1. Little interest or pleasure in doing things: several days 2. Feeling down, depressed, or hopeless: several days 3. Trouble falling or staying asleep, or sleeping too much: several days 4. Feeling tired or having little energy: more than half the days 5. Poor appetite or overeating: not at all 6. Feeling bad about yourself - or that you are a failure or have let yourself or your family down: not at all 7. Trouble concentrating on things, such as reading the newspaper or watching television: several days 8. Moving or speaking so slowly that other people could have noticed. Or the opposite - being so fidgety or restless that you have been moving around a lot more than usual: not at all 9. Thoughts that you would be better off or of hurting yourself in some way: not at all Total score: 6 Depression Screening Interpretation: Negative Depression Screening Done: Yes 07422 - PHQ-9 Billing: Yes Source: Developed by Drs. Ronan Johnston, Malu Yanes, Josse Tamayo and colleagues, with an educational todd from [employer]. Thrive Questionnaire Date Thrive assessed: 07/14/23 I am a: Patient What is your living situation today?: I have a steady place to live Within the past 12 months, did the food you bought not last and you didn't have the money to get more?: Never true Within the past 12 months, did you worry whether your food would run out before you got money to buy more?: Never true Please select the resources that you would like help with: None THRIVE Score: 0 AUDIT C Alcohol Use Questionnaire (AUDIT-C) 1. How often do you have a drink containing alcohol?: Never 3. How often do you have six or more drinks on one occasion?: Never Total Score: 0 Score Reviewed/Action Taken: No CALI-7 AMB Questionnaire CALI-7 Date CALI - 7 assessed: 07/14/23 Feeling nervous, anxious, or on edge: 0 = Not at all Not being able to stop or control worryin = Not at all Worrying too much about different things: 0 = Not at all Trouble relaxin = Not at all Being so restless that it is hard to sit still: 0 = Not at all Becoming easily annoyed or irritable: 0 = Not at all Feeling afraid as if something awful might happen: 0 = Not at all Total CALI-7 score (0-4 normal; 5-9 mild; 10-14 moderate; 15-21 severe): 0 Source: Developed by Drs. Ronan Johnston, Malu Yanes, Josse Tamayo and colleagues, with an educational todd from [employer]. Physical exam (Primary Care) Vital Signs: Last Vital Signs Pulse 87 07/14/23 14:53 BP 122/84 07/14/23 14:53 Pulse Ox 92 07/14/23 14:53 Oxygen Delivery Method Room Air 07/14/23 14:53 BMI result Body Mass Index 22.6 Tobacco/Smoking Status: Tobacco use Status Tobacco use date assessed 07/14/23 07/14/23 15:09 Patient Tobacco Use Status Never used Tobacco 07/14/23 15:09 e-Cigarette/Vaping Use Never Used 07/14/23 15:09 PHQ-9: PHQ-9 Score PHQ-9: Total score 6 07/14/23 15:09 Depression Screening Interpretation: Negative Thrive Assessment: Date of Thrive Assessment Date Thrive assessed 07/14/23 07/14/23 15:09 HENNH Other: impacted cerumen bilateral Office Procedures Cerumen Removal From which ear canal was the cerumen removed: bilateral Removal: irrigation, otoscope w/curette and cerumen loop/spoon Notes: patient tolerated procedure well, no complications and ear canal clear [id number] Irrigation/Lavage Assessment and Plan Assessment & Plan (1) CKD (chronic kidney disease): Comment: St 3, follows renal Stable at 08/2020 with 6 mo f/u Code(s): N18.9 - Chronic kidney disease, unspecified Qualifiers: Chronic kidney disease stage: stage 3 (moderate) Chronic kidney disease stage 3 subtype: stage 3b (GFR 30-44) Qualified Code(s): N18.32 - Chronic kidney disease, stage 3b Plan: keep well hydrated avoid NSAIDS (2) PAF (paroxysmal atrial fibrillation): Code(s): I48.0 - Paroxysmal atrial fibrillation Plan: continue with anticoagualion (3) BPH (benign prostatic hyperplasia): Comment: [employer] laser enucleation of the prostate Dr. Ch November 2020 Code(s): N40.0 - Benign prostatic hyperplasia without lower urinary tract symptoms Qualifiers: Lower urinary tract symptom detail: urinary frequency Lower urinary tract symptom presence: symptoms present Qualified Code(s): N40.1 - Benign prostatic hyperplasia with lower urinary tract symptoms; R35.0 - Frequency of micturition Plan: continue with tamsulosin. continue follow up with urology (4) Essential hypertension: Code(s): I10 - Essential (primary) hypertension Plan: contiunue with HCTZ, low salt diet (5) Impacted cerumen of both ears: Code(s): H61.23 - Impacted cerumen, bilateral Plan: scoop and irrigation done TM intact (6) Dermatitis: Comment: L side of neck area Code(s): L30.9 - Dermatitis, unspecified Plan: will do steroid cream for 1 week and call if not better - will need dermatology Medications: New triamcinolone acetonide 0.5% 1 appl topical BID 15 grams 0RF L30.9 - Dermatitis, unspecified Coding Level of Care Code Est Pt Level 4 (65174) Diagnoses Stage 3b chronic kidney disease N18.32 Chronic kidney disease stage: stage 3 (moderate) Chronic kidney disease stage 3 subtype: stage 3b (GFR 30-44) PAF (paroxysmal atrial fibrillation) I48.0 Benign prostatic hyperplasia with urinary frequency N40.1; R35.0 Lower urinary tract symptom detail: urinary frequency Lower urinary tract symptom presence: symptoms present Essential hypertension I10 Impacted cerumen of both ears H61.23 Dermatitis L30.9 CPT Codes Office Procedure - CPT: 15647-Vjv Irrigation/Lavage ([id number])
== END 2023-07-14 15:43 | disposition home or self-care (01) ==
PROVIDERS: PCP Internal Medicine; Visit Provider Internal Medicine
DX: I12.9 Hypertensive chronic kidney disease with stage 1 through stage 4 chronic kidney disease, or unspecified chronic kidney disease (principal); N18.32 Chronic kidney disease, stage 3b; I48.0 Paroxysmal atrial fibrillation; H61.23 Impacted cerumen, bilateral; N40.1 Benign prostatic hyperplasia with lower urinary tract symptoms; R35.0 Frequency of micturition; L30.9 Dermatitis, unspecified
CPT/HCPCS: 69210; 99214

== ENCOUNTER 2023-08-11 09:32 | Outpatient (AMB) | payer MEDICARE, SELFPAY ==
--- NOTE | 2023-08-11 09:34 | A.OFFVIS_ITS ---
Intake Vital Signs 08/11/23 09:35 Height 6 ft Weight 173 lb 11.588 oz BMI 23.6 BP 120/54 L Blood Pressure Location Lt brachial Position Sitting Pulse 98 Intake Visit Reasons: 6 mth fu (HS) Intake Note: Patient saying he not felling the energy he use to have [employer] Required: No Commodity Trader: Commodity Trader Present Allergies oxycodone Allergy (Unknown, Verified 08/11/23 09:38) hives aspirin Adverse Reaction (Intermediate, Verified 08/11/23 09:38) bleeding Medication List - Last Reconciled 08/11/23 by Capri Gallardo, SUPERVISOR [employer]-C calcium carbonate 500 mg PO DAILY carbamide peroxide 6.5% (Debrox) 5 drps otic (ears) DAILY 4 days cyanocobalamin (vitamin B-12) 250 mcg PO DAILY fluorouracil 5% appl topical hydrochlorothiazide 12.5 mg PO DAILY 90 days [id number] 300-13-709-300 mcg (Centrum Silver Men) 1 tab PO DAILY rivaroxaban (Xarelto) 15 mg PO DAILY tamsulosin 0.4 mg PO BEDTIME 90 days triamcinolone acetonide 0.5% 1 appl topical BID HPI 6 mth fu (HS) HPI Details Master is an 87-year-old male with past medical history of hypertension, obstructive sleep apnea which is untreated, paroxysmal atrial fibrillation, sick sinus syndrome status post dual-chamber pacemaker placement who presents for follow-up. Today he reports that he has issues with fatigue, lack of energy, generalized body aches and pains, feeling cold all the time. He has no localized chest area discomfort. No concerning shortness of breath, palpitations, lightheadedness, presyncope, syncope, falls. No PND, orthopnea or edema. He is taking his meds as directed. He does only light activities around the house. He uses a stepper exercise machine and light hand weights to help stay in shape. is present. [facility] Medical History Cold intolerance Retrognathia COVID-19 vaccine series completed History of blood transfusion PAF (paroxysmal atrial fibrillation) SSS (sick sinus syndrome) Blood type O+ Atrial fibrillation History of cataract Pulmonary nodule CKD (chronic kidney disease) History of gastric ulcer Loose right total knee arthroplasty Renal cancer Diverticulitis Kidney stones Erectile dysfunction Psoriasis Osteoarthritis BPH (benign prostatic hyperplasia) Neoplasm of right kidney Pacemaker Surgical History Hx of cataract surgery History of prostate surgery H/O lithotripsy Hx of tonsillectomy History of esophagogastroduodenoscopy (EGD) History of bilateral cataract extraction History of total right knee replacement History of total left knee replacement Family History Father No problems noted. Mother Diabetes Cancer Son No problems noted. Son No problems noted. Social History Housing: House Alcohol intake: never Patient Tobacco Use Status: Never used Tobacco e-Cigarette/Vaping Use: Never Used Second Hand Smoke Exposure: No Advance Directives Date on File: 12/08/20 service: No Current occupational status: retired Cognitive needs: Yes Hearing needs: Yes Vision needs: Yes Review of Systems Const All systems reviewed & are unremarkable except as noted in HPI and below Reports lethargy, Reports malaise and Reports weakness ENT Denies dizziness Card Denies chest pain, Denies chest pain at rest, Denies chest pain with activity, Denies rapid heart rate, Denies pedal edema, Denies edema, Denies leg edema, Denies lightheadedness, Denies palpitations, Denies dyspnea, Denies dyspnea on exertion and Denies orthopnea Resp Denies cough, Denies dyspnea and Denies dyspnea on exertion GI Denies hematochezia and Denies change in stool character Musc Details: generalized body discomfort Denies abnormal gait, Denies limited range of motion, Denies muscle cramps, Denies muscle weakness, Denies numbness, Denies radiating pain into limb, Denies stiffness and Denies tingling Neuro Denies abnormal gait, Denies dizziness, Denies numbness, Denies tingling and Reports weakness Endo Denies palpitations Physical Exam Vital Signs: Last Vital Signs Pulse 98 08/11/23 09:35 BP 120/54 L 08/11/23 09:35 BMI result Body Mass Index 23.6 Const General: cooperative, healthy appearing, comfortable and no acute distress Orientation/consciousness: patient oriented x3 Neck Neck: Yes normal visual inspection and Yes no JVD Resp Effort & Inspection: normal respiratory effort Auscultation: clear to auscultation bilaterally, no crackles, no rales, no rhonchi and no wheezes Cardio Jugular venous distension: no JVD Rate: regular rate Rhythm: regular rhythm Heart sounds: S1 normal heart sound present, S2 normal heart sound present, no murmurs and no rubs Neuro General: patient oriented x3 Extrem General: Yes normal to inspection, No no pedal edema and No calf tenderness Psych Appearance: grossly normal Mental Status: mental status grossly normal Speech and movement: Normal speech and movement present Office Procedures Cardiac Device Check Cardiac Device Check Details: Medtronic dual-chamber pacemaker interrogation today, AA I to DDD mode, low rate 60, upper tracking rate 120, battery 7.8 years, V paced 98.8%, a paced 39.7%, atrial threshold 0.5 volts at 0.4 milliseconds, RV threshold 1.125 volts at 0.4 milliseconds, PAF 7.1% of time V rates seem well controlled [id number] Cardiac Device Check, pacemaker dual lead Procedure code (CPT) selection complete Assessment & Plan Assessment & Plan (1) PAF (paroxysmal atrial fibrillation): Code(s): I48.0 - Paroxysmal atrial fibrillation Plan: History of paroxysmal atrial fibrillation as seen on interrogations of his pacemaker. He denies any heart palpitations or shortness of breath that can be as a result of the AFib. Overall seems asymptomatic. He is not requiring rate slowing medications. Heart rates seem well controlled, less than 100 when in atrial fibrillation. Office interrogation done today shows AFib burden 7.1% since January. He is on Xarelto 15 mg daily for anticoagulation. Tells me that every spring he does get nosebleeds due to the weather change. Informed him that now on anticoagulation bleeding may persist longer if it occurs. Emergency care if ever needed. (2) Pacemaker: Comment: Medtronic DCPP 02/13/2020 secondary to heart block Code(s): Z95.0 - Presence of cardiac pacemaker Plan: Medtronic dual-chamber pacemaker in place. Interrogation done today shows device is functioning normally. Battery 7.8 years. Remote monitoring in use. Next office interrogation due in 6 months. (3) SSS (sick sinus syndrome): Code(s): I49.5 - Sick sinus syndrome Plan: As above (4) Essential hypertension: Code(s): I10 - Essential (primary) hypertension Plan: Normal range at this time. No medication changes made. Continue hydrochlorothiazide (5) SHORTY (obstructive sleep apnea): Code(s): G47.33 - Obstructive sleep apnea (adult) (pediatric) Plan: Reported history of obstructive sleep apnea, mild. Not using CPAP and not interested. Plan Time spent on chart review, documentation, interview and assessment Coding Level of Care Code Est Pt Level 4 (66452) Diagnoses PAF (paroxysmal atrial fibrillation) I48.0 Pacemaker Z95.0 SSS (sick sinus syndrome) I49.5 Essential hypertension I10 SHORTY (obstructive sleep apnea) G47.33 CPT Codes Cardiac Device Check - Cardiac Device 2: [id number] Cardiac Device Check, pacemaker dual lead ([id number]) Time Spent (min) 30
[2023-08-11 09:35] VITALS: BP 120/54; PULSE 98; BMI 23.6
== END 2023-08-11 10:17 | disposition home or self-care (01) ==
PROVIDERS: PCP Internal Medicine; Visit Provider Nurse Practitioner Family
DX: I48.0 Paroxysmal atrial fibrillation (principal); Z95.0 Presence of cardiac pacemaker; I49.5 Sick sinus syndrome; I10 Essential (primary) hypertension; G47.33 Obstructive sleep apnea (adult) (pediatric)
CPT/HCPCS: 93280; 99214

== ENCOUNTER → 2023-08-11 09:32 | Outpatient (BNVA) | payer MEDICARE, SELFPAY | PROVIDERS: PCP Internal Medicine; Visit Provider Nurse Practitioner Family | DX: I48.0 Paroxysmal atrial fibrillation (principal); I10 Essential (primary) hypertension; G47.33 Obstructive sleep apnea (adult) (pediatric); Z45.018 Encounter for adjustment and management of other part of cardiac pacemaker; Z86.79 Personal history of other diseases of the circulatory system; Z79.01 Long term (current) use of anticoagulants | CPT/HCPCS: 93280; 99212 ==

== ENCOUNTER 2023-08-15 09:09 | Emergency (ER) | payer MEDICARE, SELFPAY ==
--- NOTE | ~2023-08-15 | XR_ITS ---
EXAMINATION: XR FOOT, LEFT CLINICAL INFORMATION: Pain swelling COMPARISON: None available. TECHNIQUE: AP, lateral, and oblique views of the left foot. FINDINGS: The bones and soft tissues are normal. No fracture. Alignment is anatomic. Joint spaces are maintained. Small plantar calcaneal spur. XR/XR foot LT min 3V IMPRESSION: 1. No fracture 2. Small plantar calcaneal spur.
[2023-08-15 09:25] VITALS: BP 135/61; PULSE 81; RESP 16; TEMP 36; O2SAT 97; BMI 27.1
[2023-08-15 13:49] LABS: MANUAL DIFF FLAG NO
[2023-08-15 13:59] LABS: Basophils Percent Auto 0.2 % (0-2); Eosinophils Percent Auto 0.5 % (0-4); Hematocrit 39.6 % (42.0-52.0); Hemoglobin 13.5 g/dl (14.0-18.0); Imm Gran Abs Auto 0.02 X10*3/uL (0.00-0.03); Imm Gran Pct Auto 0.3 % (0.0-0.4); Lymphocytes Percent Auto 16.2 % (20-40); Mean Corpuscular HGB Conc 34.1 g/dl (31.0-36.0); Mean Corpuscular Hemoglobin 31.6 pg (27.0-33.0); Mean Corpuscular Volume 92.7 fL (80.0-98.0); Mean Platelet Volume 11.2 fL (9.4-12.4); Monocytes Absolute Auto 0.5 X10*3/uL (0.1-1.2); Neutrophils Absolute Auto 4.5 x10*3/uL (2.0-8.3); Neutrophils Percent Auto 74.8 % (45-73); Platelet Count 174 X10*3/uL (160-400); Red Blood Count 4.27 X10*6/uL (4.60-5.80); Red Cell Distribution Width 12.2 % (11.0-16.0)
[2023-08-15 14:04] LABS: Alanine Aminotransferase 15 U/L (0-40); Albumin Level 3.8 g/dL (3.5-5.0); Alkaline Phosphatase 79 U/L (39-117); Anion Gap 16 (12-20); Aspartate Amino Transferase 18 U/L (5-37); Bilirubin Total 0.5 mg/dL (0.0-1.0); Blood Urea Nitrogen 33 mg/dL (9-16); C Reactive Protein 1.67 mg/dL (< or = 0.50); Calcium 9.7 mg/dL (8.4-10.2); Carbon Dioxide 23 mmol/L (22-29); Chloride 104 mmol/L (96-108); Creatinine Clr Calc Pharmacy 33.6; Estimated Glomerular Filt Rate 45; Glucose Random 101 mg/dL (60-115); Potassium 3.9 mmol/L (3.3-5.1); Sodium 139 mmol/L (135-145)
[2023-08-15 14:39] LABS: Erythrocyte Sedimentation Rate 30 MM/HR (0-15)
[2023-08-15 17:11] VITALS: BP 148/64; PULSE 69; RESP 16; TEMP 36.7; O2SAT 100
--- NOTE | 2023-08-15 17:38 | ED.GENADULT ---
HPI - General Adult General Chief complaint: Extremity Injury, Lower Stated complaint: l foot swelling Time Seen by Provider: 08/15/23 17:27 Source: patient and family Mode of arrival: ambulatory Limitations: no limitations History of Present Illness HPI narrative: This is an 87-year-old male history of dermatitis PVD, CKD, depression, SHORTY, anemia, neoplasm of right kidney, BPH, atrial fibrillation, sick sinus syndrome presenting w/ L foot pain/ swelling / redness that started a week ago. Seems to not be going away on its own. No fevers, chills, numbness, tingling, trauma, nausea, vomiting, calf pain, leg pain, leg swelling, cp, sob. Was seen by cardiology last week normal exam per patient and family Related Data Home Medications Medication Instructions Recorded Confirmed cyanocobalamin (vitamin B-12) 250 250 mcg PO DAILY 04/01/20 08/11/23 mcg lozenges fluorouracil 5 % topical cream appl topical 10/02/21 08/11/23 calcium carbonate 500 mg calcium 500 mg PO DAILY 10/22/22 08/11/23 (1,250 mg) tablet [id number] 300 mcg-K 60 1 tab PO DAILY 10/22/22 08/11/23 mcg-lycop 600 mcg-lutein 300 mcg tablet (Centrum Silver Men) Previous Rx's Medication Instructions Recorded hydrochlorothiazide 12.5 mg tablet 12.5 mg PO DAILY 90 days #90 tabs 12/01/22 tamsulosin 0.4 mg capsule 0.4 mg PO BEDTIME 90 days #90 caps 04/13/23 carbamide peroxide 6.5 % ear drops 5 drp otic (ears) DAILY 4 days #15 07/07/23 (Debrox) mL triamcinolone acetonide 0.5 % 1 appl topical BID #15 grams 07/14/23 topical cream rivaroxaban 15 mg tablet (Xarelto) 15 mg PO DAILY #90 tabs 07/19/23 cephalexin 500 mg tablet 500 mg PO Q6H 10 days #40 tabs 08/15/23 prednisone 20 mg tablet 20 mg PO DAILY 5 days #5 tabs 08/15/23 Allergies Allergy/AdvReac Type Severity Reaction Status Date / Time oxycodone Allergy Unknown hives Verified 08/15/23 09:25 aspirin AdvReac Intermediate bleeding Verified 08/15/23 09:25 Review of Systems Review of Systems: Yes all other systems are reviewed and are negative [facility] Past Medical History Source: old records reviewed Medical History Cold intolerance Retrognathia COVID-19 vaccine series completed History of blood transfusion PAF (paroxysmal atrial fibrillation) SSS (sick sinus syndrome) Blood type O+ Atrial fibrillation History of cataract Pulmonary nodule CKD (chronic kidney disease) History of gastric ulcer Loose right total knee arthroplasty Renal cancer Diverticulitis Kidney stones Erectile dysfunction Psoriasis Osteoarthritis BPH (benign prostatic hyperplasia) Neoplasm of right kidney Pacemaker Surgical History Hx of cataract surgery History of prostate surgery H/O lithotripsy Hx of tonsillectomy History of esophagogastroduodenoscopy (EGD) History of bilateral cataract extraction History of total right knee replacement History of total left knee replacement Family History Family History Father No problems noted. Mother Diabetes Cancer Son No problems noted. Son No problems noted. Social History Social History Housing: House Alcohol intake: never Patient Tobacco Use Status: Never used Tobacco e-Cigarette/Vaping Use: Never Used Second Hand Smoke Exposure: No Advance Directives: Yes Advance Directives on File: Yes Advance Directives Date on File: 12/08/20 service: No Current occupational status: retired Cognitive needs: Yes Hearing needs: Yes Vision needs: Yes Physical Exam ED Vital Signs: Vital Signs - 24 hr 08/15/23 09:25 08/15/23 17:11 Temperature 96.8 F 98.0 F Pulse Rate 81 69 Respiratory Rate 16 16 Blood Pressure 135/61 148/64 H Pulse Oximetry 97 100 Oxygen Delivery Method Room Air Room Air BMI result Body Mass Index 27.1 vss Appearance: Alert.? Oriented X3.? No acute distress.? Head: Normocephalic, atraumatic, no step-offs or deformities Eyes: Pupils equal, round and reactive to light.? Neck: Normal inspection.? Neck supple.? CVS: Normal heart rate and rhythm.? Pulses normal.? Respiratory: No respiratory distress.? Breath sounds normal.? Skin: Skin warm and dry.? Normal skin color.? Normal skin turgor.?+ errythema to top of left foot w. mild calor. Extremities: +1+ b/l lower extremity pitting edema.? No calf ttp, negative rachel b/l. 5/5 strength to bilateral upper and lower extremities Neuro: Oriented X 3.? No motor deficit.? No sensory deficit. CN 2-12 intact Course Reevaluation(s) Reevaluation #1: CBC unremarkable. Chemistry no acute findings noted to have elevated BUN and creatinine around his baseline however no acute findings. Elevated ESR and CRP. X-ray of left foot no acute fracture small plantar calcaneal spur. I do not suspect osteomyelitis. Unlikely arterial or venous occlusion therefore no indication for imaging. Will discharge patient home with Keflex. Also give a small dose of prednisone. In case there is a small inflammatory arthritis. Educated patient on diagnosis and treatment plan, answered all question, patient verbalizes understanding. At this time patient will be discharged home, advised to return with new or worsening symptoms. Educated on worrisome signs and symptoms and when to return. At this time I feel comfortable discharge home. Time: 17:50 Medical Decision Making Medical Decision Making [facility] Narrative: [id number] 87-year-old male presents with left foot pain and swelling with redness that started about a week ago worsening Physical examination significant for + errythema to top of left foot w. mild calor. +1+ b/l lower extremity pitting edema.? No calf ttp, negative rachel b/l. 5/5 strength to bilateral upper and lower extremities Concerns for cellulitis. Unlikely septic joint, gout, pseudogout, arterial or venous occlusion. Atraumatic unlikely fracture, dislocation. Plan at this time imaging ordered. Differential Diagnosis Differential Diagnoses: The differential diagnosis associated with the presentation includes Admission/Observation Consideration of admission/observation: Escalation of care including admission/observation considered Unlikely Lab Data [facility] Lab Attestation statement: I reviewed the patient's lab results. 08/15/23 13:28 08/15/23 13:28 Labs: Lab Results 08/15/23 Range/Units 13:28 WBC 6.0 (4.8-10.8) X10*3/uL RBC 4.27 L (4.60-5.80) X10*6/uL Hgb 13.5 L (14.0-18.0) g/dl Hct 39.6 L (42.0-52.0) % MCV 92.7 (80.0-98.0) fL MCH 31.6 (27.0-33.0) pg MCHC 34.1 (31.0-36.0) g/dl RDW 12.2 (11.0-16.0) % Plt Count 174 (160-400) X10*3/uL MPV 11.2 (9.4-12.4) fL Immature Gran % (Auto) 0.3 (0.0-0.4) % Neut % (Auto) 74.8 H (45-73) % Lymph % (Auto) 16.2 L (20-40) % Yell % (Auto) 8.0 (2-11) % Eos % (Auto) 0.5 (0-4) % Baso % (Auto) 0.2 (0-2) % Lymph # (Auto) 1.0 L (1.2-4.9) X10*3/uL Yell # (Auto) 0.5 (0.1-1.2) X10*3/uL Eos # (Auto) 0.0 (0.0-0.4) X10*3/uL Baso # (Auto) 0.0 (0.0-0.2) X10*3/uL Abs Immat Gran (auto) 0.02 (0.00-0.03) X10*3/uL Absolute Neuts (auto) 4.5 (2.0-8.3) x10*3/uL Absolute Nucleated RBC 0.000 (0.0-0.012) X10*3/uL Nucleated RBC % (auto) 0.0 (0.0-0.2) /100WBC ESR 30 H (0-15) MM/HR Sodium 139 (135-145) mmol/L Potassium 3.9 (3.3-5.1) mmol/L Chloride 104 (96-108) mmol/L Carbon Dioxide 23 (22-29) mmol/L Anion Gap 16 (12-20) BUN 33 H (9-16) mg/dL Creatinine 1.47 H (0.5-1.4) mg/dL Estim Creat Clear Calc 33.6 Estimated GFR 45 Random Glucose 101 (60-115) mg/dL Calcium 9.7 (8.4-10.2) mg/dL Total Bilirubin 0.5 (0.0-1.0) mg/dL AST 18 (5-37) U/L ALT 15 (0-40) U/L Alkaline Phosphatase 79 (39-117) U/L C-Reactive Protein 1.67 H (< or = 0.50) mg/dL Total Protein 7.0 (6.5-8.0) g/dL Albumin 3.8 (3.5-5.0) g/dL Independent Interpretation I performed an independent interpretation of an: Plain X-Ray (XR/XR foot LT min 3V IMPRESSION: 1. No fracture 2. Small plantar calcaneal spur. ) Radiology Impression Discussion of test interpretation with radiology: I have reviewed the radiologist's reading. External Record Review External record reviewed: Inpatient record, Office record, Outpatient record, Prior outpatient labs, Prior outpatient radiology, Primary care record and Outside ED record Prescription Management I considered prescription management with: Pain Medication and Antibiotic Critical Care Time Critical Care Time Critical Care Time: No Discharge Plan Discharge Clinical Impression: Foot pain, left, CKD (chronic kidney disease), Cellulitis, Leg edema Patient Disposition: Home, Self-Care Instructions: Chronic Kidney Disease (ED), Arthralgia (ED), Edema (ED), Low-Sodium Diet (ED), Leg Edema (ED) Additional Instructions: Take your medications as prescribed. If you were prescribed antibiotics today, it is important that you take your medication to their entirety, do not skip any doses, do not finish them early. Follow-up with your primary care provider this week. Return to the emergency department with new or worsening symptoms. Such as fevers, chills, chest pain, shortness of breath, nausea, vomiting, dizziness, headache, vision changes, lethargy In case of emergency call 911 Follow up with PCP for Edema XR/XR foot LT min 3V IMPRESSION: 1. No fracture 2. Small plantar calcaneal spur. Prescriptions: New prednisone 20 mg tablet 20 mg PO DAILY 5 Days Qty: 5 0RF cephalexin 500 mg tablet 500 mg PO Q6H 10 Days Qty: 40 0RF No Action hydrochlorothiazide 12.5 mg tablet 12.5 mg PO DAILY 90 Days Qty: 90 3RF tamsulosin 0.4 mg capsule 0.4 mg PO BEDTIME 90 Days Qty: 90 1RF Debrox 6.5 % drops 5 drp otic (ears) DAILY 4 Days Qty: 15 0RF Xarelto 15 mg tablet 15 mg PO DAILY Qty: 90 3RF cyanocobalamin (vitamin B-12) 250 mcg lozenge 250 mcg PO DAILY triamcinolone acetonide 0.5 % cream 1 appl topical BID Qty: 15 0RF Centrum Silver Men 300-600-300 mcg tablet 1 tab PO DAILY calcium carbonate 500 mg calcium (1,250 mg) tablet 500 mg PO DAILY fluorouracil 5 % cream topical Referrals: Po,Devendra Delong MD [Primary Care Provider] - 2 days Stand Alone Forms: Work/School Release
[2023-08-15 18:04] VITALS: BP 148/64; PULSE 69; RESP 16; TEMP 36.6; O2SAT 100
== END 2023-08-15 18:05 | disposition home or self-care (01) ==
PROVIDERS: Physician Assistant Medical; Emergency Provider Internal Medicine; PCP Internal Medicine
DX: L03.116 Cellulitis of left lower limb (principal); M79.672 Pain in left foot; I73.9 Peripheral vascular disease, unspecified; N18.9 Chronic kidney disease, unspecified; I48.91 Unspecified atrial fibrillation; G47.33 Obstructive sleep apnea (adult) (pediatric)
CPT/HCPCS: 36415; 73630; 80053; 85025; 85652; 86140; 99283

== ENCOUNTER 2023-08-22 11:25 | Outpatient (AMB) | payer MEDICARE, SELFPAY ==
[2023-08-22 11:31] VITALS: BP 128/48; PULSE 60; O2SAT 99; BMI 26.1
--- NOTE | 2023-08-22 11:31 | HO.NEPHOV ---
HPI HPI Comments History of Present Illness Details 87-year-old man with a history of longstanding hypertension and chronic kidney disease. He has a history of a renal mass status post cryoablation. From renal standpoint is doing very well. No urine symptoms No hematuria. No shortness of breath 08/21 REcently in ER and diagnosed with cellulitis - left foot On Cephalexin [facility] Medical History Cold intolerance Retrognathia COVID-19 vaccine series completed History of blood transfusion PAF (paroxysmal atrial fibrillation) SSS (sick sinus syndrome) Blood type O+ Atrial fibrillation History of cataract Pulmonary nodule CKD (chronic kidney disease) History of gastric ulcer Loose right total knee arthroplasty Renal cancer Diverticulitis Kidney stones Erectile dysfunction Psoriasis Osteoarthritis BPH (benign prostatic hyperplasia) Neoplasm of right kidney Pacemaker Surgical History Hx of cataract surgery History of prostate surgery H/O lithotripsy Hx of tonsillectomy History of esophagogastroduodenoscopy (EGD) History of bilateral cataract extraction History of total right knee replacement History of total left knee replacement Family History Father No problems noted. Mother Diabetes Cancer Son No problems noted. Son No problems noted. Social History Housing: House Alcohol intake: never Patient Tobacco Use Status: Never used Tobacco e-Cigarette/Vaping Use: Never Used Second Hand Smoke Exposure: No Advance Directives Date on File: 12/08/20 service: No Current occupational status: retired Cognitive needs: Yes Hearing needs: Yes Vision needs: Yes Vital Signs 08/22/23 11:31 Height 5 ft 8 in Weight 172 lb BMI 26.1 BP 128/48 L Blood Pressure Location Rt brachial Position Sitting Pulse 60 Pulse Source Pulse Oximeter Pulse Oximetry (%) 99 Oxygen Delivery Method Room Air Physical Exam Vital Signs: Last Vital Signs Pulse 60 08/22/23 11:31 BP 128/48 L 08/22/23 11:31 Pulse Ox 99 08/22/23 11:31 Oxygen Delivery Method Room Air 08/22/23 11:31 BMI result Body Mass Index 26.1 Const General: comfortable Nutritional Appearance: well nourished Orientation/consciousness: patient oriented x3 HEENT Head: No normal to inspection Mouth: moist mucous membranes Neck Neck: Yes supple and Yes no JVD Resp Auscultation: clear to auscultation bilaterally, no rales and rub present Cardio Jugular venous distension: no JVD Palpation: no palpable S3 and no palpable S4 Heart sounds: no rubs GI Palpation (GI): Soft to palpation and nontender Percussion: No Fluid wave present General: Yes no CVA tenderness Back/Spine/Pelvis Back: no CVA tenderness Skin General skin exam: no rashes or lesions noted Neuro General: patient oriented x3 Extrem General: Yes no pedal edema and No clubbing Assessment & Plan Assessment & Plan (1) Chronic kidney disease, stage 3a: Code(s): N18.31 - Chronic kidney disease, stage 3a (2) Essential hypertension: Code(s): I10 - Essential (primary) hypertension (3) Neoplasm of right kidney: Comment: s/p cryoablation right renal tumor Dr. Tatum 04/14/2016 Code(s): D49.511 - Neoplasm of unspecified behavior of right kidney (4) CKD (chronic kidney disease): Code(s): N18.9 - Chronic kidney disease, unspecified Plan Master has stage III chronic disease in a setting of longstanding hypertension. Overall renal function stable with a creatinine of around 1.4 mg/dL. Goal is to slow the progression of renal disease Our nephrotoxic agents. Maintain blood pressure less than 130/80. He has a renal mass. Status post cryoablation in the past. He needs Urology follow-up.- Has appointment in August Orders: Orders Basic Metabolic Panel 5 Months N18.9 - Chronic kidney disease, unspecified Total Protein Urine Random 5 Months N18.9 - Chronic kidney disease, unspecified Parathyroid Hormone Intact 5 Months N18.9 - Chronic kidney disease, unspecified Uric Acid 5 Months N18.9 - Chronic kidney disease, unspecified Complete Blood Count Auto Diff 5 Months N18.30 - Chronic kidney disease, stage 3 unspecified, N18.9 - Chronic kidney disease, unspecified Coding Level of Care Code Est Pt Level 4 (82984) Diagnoses Chronic kidney disease, stage 3a N18.31 Essential hypertension I10 Neoplasm of right kidney D49.511 CKD (chronic kidney disease) N18.9 Results Reviewed Nephrology Results: Hgb 13.5 g/dl (14.0-18.0) L 08/15/23 WBC 6.0 X10*3/uL (4.8-10.8) 08/15/23 Plt Count 174 X10*3/uL (160-400) 08/15/23 Sodium 139 mmol/L (135-145) 08/15/23 Potassium 3.9 mmol/L (3.3-5.1) 08/15/23 Chloride 104 mmol/L (96-108) 08/15/23 Carbon Dioxide 23 mmol/L (22-29) 08/15/23 BUN 33 mg/dL (9-16) H 08/15/23 Creatinine 1.47 mg/dL (0.5-1.4) H 08/15/23 Calcium 9.7 mg/dL (8.4-10.2) 08/15/23 Urine Protein Negative mg/dL (Neg-Trace) 07/11/23
== END 2023-08-22 11:52 | disposition home or self-care (01) ==
PROVIDERS: PCP Internal Medicine; Visit Provider Internal Medicine Hypertension Specialist
DX: I12.9 Hypertensive chronic kidney disease with stage 1 through stage 4 chronic kidney disease, or unspecified chronic kidney disease (principal); N18.31 Chronic kidney disease, stage 3a; D49.511 Neoplasm of unspecified behavior of right kidney; N18.9 Chronic kidney disease, unspecified
CPT/HCPCS: 99214

== ENCOUNTER → 2023-08-22 11:25 | Outpatient (BNVA) | payer MEDICARE, SELFPAY | PROVIDERS: PCP Internal Medicine; Visit Provider Internal Medicine Hypertension Specialist | DX: I12.9 Hypertensive chronic kidney disease with stage 1 through stage 4 chronic kidney disease, or unspecified chronic kidney disease (principal); N18.31 Chronic kidney disease, stage 3a; D49.511 Neoplasm of unspecified behavior of right kidney | CPT/HCPCS: 99212 ==

== ENCOUNTER → 2023-08-26 23:59 | Outpatient (BNV) | payer MEDICARE, SELFPAY ==
--- NOTE | 2023-08-30 12:16 | MHC.OFFVIS ---
Intake Intake Visit Reasons: Remote Device Check- [employer] Allergies oxycodone Allergy (Unknown, Verified 08/22/23 11:35) hives aspirin Adverse Reaction (Intermediate, Verified 08/22/23 11:35) bleeding PFSH Medical History Cold intolerance Retrognathia COVID-19 vaccine series completed History of blood transfusion PAF (paroxysmal atrial fibrillation) SSS (sick sinus syndrome) Blood type O+ Atrial fibrillation History of cataract Pulmonary nodule CKD (chronic kidney disease) History of gastric ulcer Loose right total knee arthroplasty Renal cancer Diverticulitis Kidney stones Erectile dysfunction Psoriasis Osteoarthritis BPH (benign prostatic hyperplasia) Neoplasm of right kidney Pacemaker Surgical History Hx of cataract surgery History of prostate surgery H/O lithotripsy Hx of tonsillectomy History of esophagogastroduodenoscopy (EGD) History of bilateral cataract extraction History of total right knee replacement History of total left knee replacement Family History Father No problems noted. Mother Diabetes Cancer Son No problems noted. Son No problems noted. Social History Housing: House Alcohol intake: never Patient Tobacco Use Status: Never used Tobacco e-Cigarette/Vaping Use: Never Used Second Hand Smoke Exposure: No Advance Directives Date on File: 12/08/20 service: No Current occupational status: retired Cognitive needs: Yes Hearing needs: Yes Vision needs: Yes Office Procedures Cardiac Device Check Cardiac Device Check Details: Date of service- 08/26/2023 ; Battery life >7 years; normal lead parameters; AP 32%; SENIOR SOFTWARE DEVELOPER 99%; Time in AT/AF 9.5%. Overall normal device function. [id number] Cardiac Device Interrogation, pacemaker Procedure code (CPT) selection complete Assessment & Plan Assessment & Plan (1) PAF (paroxysmal atrial fibrillation): Code(s): I48.0 - Paroxysmal atrial fibrillation Plan x Coding Level of Care Code Procedure Only Diagnoses PAF (paroxysmal atrial fibrillation) I48.0 CPT Codes Cardiac Device Check - Cardiac Device 12: [id number] Cardiac Device Interrogation, pacemaker ([id number])
== END ==
PROVIDERS: PCP Internal Medicine; Visit Provider Internal Medicine
DX: I48.0 Paroxysmal atrial fibrillation (principal); Z95.0 Presence of cardiac pacemaker
CPT/HCPCS: 93294

== ENCOUNTER 2023-09-20 10:29 | Outpatient (REF) | payer MEDICARE, SELFPAY ==
--- NOTE | ~2023-09-20 | US_ITS ---
EXAMINATION: US RETROPERITONEAL LIMITED (RENAL ONLY) CLINICAL INFORMATION: Neoplasm of unspecified behavior of right kidney. COMPARISON: Renal ultrasound 09/14/2022 and 08/06/2019. CT abdomen and pelvis 07/14/2016. TECHNIQUE: Real-time imaging of the kidneys. FINDINGS: RIGHT KIDNEY: 9.8 x 4.6 x 4.6 cm (SAG x AP x TRV). The kidney is normal in size, contour, and echogenicity. Renal cortical thickness is normal. No renal calculi or hydronephrosis. 2.0 cm simple cyst in the upper pole for which no imaging follow-up is recommended. 4.3 x 3.0 x 2.7 cm heterogeneous mass in the mid kidney. This measured 3.5 x 1.5 x 1.8 cm on 09/14/2022, 4.6 x 3.1 x 4.6 cm on 08/06/2019 and 4.6 x 3.7 x 4.0 cm on 01/30/2019. There is a history of cryoablation. LEFT KIDNEY: 12.9 x 5.3 x 3.9 cm (SAG x AP x TRV). The kidney is normal in size, contour, and echogenicity. Renal cortical thickness is normal. No renal calculi or hydronephrosis. 1.6 cm thinly septated cyst in the mid kidney. No imaging follow-up is recommended. US/US renal BI IMPRESSION: Heterogeneous mass in the mid right kidney measuring up to 4.3 cm which measured 3.5 cm on 09/14/2022, but up to 4.6 cm on 08/06/2019 and 4.6 cm on 01/30/2019. Suspect that the reported changes in size are more likely related to ultrasound technique and interobserver variability than true change in size. Recommend continued imaging surveillance.
== END 2023-09-20 10:30 | disposition home or self-care (01) ==
LOC: HO.US 10:29
PROVIDERS: PCP Internal Medicine; Visit Provider Urology
DX: D49.511 Neoplasm of unspecified behavior of right kidney (principal)
CPT/HCPCS: 76775

== ENCOUNTER 2023-10-05 10:34 | Outpatient (AMB) | payer MEDICARE, SELFPAY ==
--- NOTE | 2023-10-05 10:46 | MHC.OFFVIS ---
Intake Visit Reasons: 1Y/US(set) Intake Note: Patient is Present for Follow Up Urology Medication: Tamsulosin Antibiotic Allergies:None Blood Thinners:None Allergies oxycodone Allergy (Unknown, Verified 10/05/23 10:47) hives aspirin Adverse Reaction (Intermediate, Verified 10/05/23 10:47) bleeding Medication List - Last Reconciled 10/05/23 by Serjio Ch MD calcium carbonate 500 mg PO DAILY PRN carbamide peroxide 6.5% (Debrox) 5 drps otic (ears) DAILY PRN cephalexin 500 mg PO Q6H 10 days cyanocobalamin (vitamin B-12) 250 mcg PO DAILY fluorouracil 5% appl topical hydrochlorothiazide 12.5 mg PO DAILY 90 days [id number] mcg (Centrum Silver Men) 1 tab PO DAILY rivaroxaban (Xarelto) 15 mg PO DAILY tamsulosin 0.4 mg PO BEDTIME 90 days triamcinolone acetonide 0.5% 1 appl topical BID HPI Comments Details: Master is a pleasant male.? He is a patient DrYing Comer. He is here for the following urologic conditions - lower urinary tract symptoms - renal carcinoma Twelve month follow-up Effective emptying Stable imaging BPH laser procedure 12/17 Prior TURP procedure number of years ago, laser prostate procedure November 2020 Prior medications - tamsulosin and oxybutynin Current symptoms - weak stream, urgency, hesitancy, nocturia Back on anticoagulation Renal Carcinoma 2015 cryo ablation Continue to follow with imaging Imaging - 08/16 ultrasound right 4.6 cm exophytic lesion consistent with cryoablation unchanged in size.? Bilateral renal cortical thinning - 08/18 chest x-ray normal - 08/19 ultrasound with 3.5 cm exophytic lesion consistent with cryo ablation changes - 09/20 renal ultrasound. Heterogeneous mass in the mid right kidney measuring up to 4.3 cm which measured 3.5 cm on 09/14/2022, but up to 4.6 cm on 08/06/2019 and 4.6 cm on 01/30/2019. Suspect that the reported changes in size are more likely related to ultrasound technique [facility] Medical History Cold intolerance Retrognathia COVID-19 vaccine series completed History of blood transfusion PAF (paroxysmal atrial fibrillation) SSS (sick sinus syndrome) Blood type O+ Atrial fibrillation History of cataract Pulmonary nodule CKD (chronic kidney disease) History of gastric ulcer Loose right total knee arthroplasty Renal cancer Diverticulitis Kidney stones Erectile dysfunction Psoriasis Osteoarthritis BPH (benign prostatic hyperplasia) Neoplasm of right kidney Pacemaker Surgical History Hx of cataract surgery History of prostate surgery H/O lithotripsy Hx of tonsillectomy History of esophagogastroduodenoscopy (EGD) History of bilateral cataract extraction History of total right knee replacement History of total left knee replacement Family History Father No problems noted. Mother Diabetes Cancer Son No problems noted. Son No problems noted. Social History Housing: House Alcohol intake: never Patient Tobacco Use Status: Never used Tobacco e-Cigarette/Vaping Use: Never Used Second Hand Smoke Exposure: No Advance Directives Date on File: 12/08/20 service: No Current occupational status: retired Cognitive needs: Yes Hearing needs: Yes Vision needs: Yes Review of Systems Const Denies chills and Denies fever(s) Card Reports no additional complaints and Denies syncope Resp Denies cough GI Denies abdominal pain and Denies heartburn Reports as per HPI and Denies change in libido Neuro Denies syncope Psych Denies change in libido Endo Denies change in libido Physical Exam Const General: cooperative, healthy appearing, comfortable and no acute distress Orientation/consciousness: patient oriented x3 HEENT Face and sinus: Yes normal facial exam Mouth: moist mucous membranes Neck Neck: Yes normal visual inspection, Yes full ROM and Yes trachea midline Chest Chest palpation & inspection: normal inspection of the chest Resp Effort & Inspection: normal respiratory effort, able to speak in complete sentences and no respiratory distress GI Inspection: Yes normal to inspection Back/Spine/Pelvis Cervical Spine: normal cervical lordosis Thoracic/Lumbar Spine: thoracic and lumbar spine normal to inspection Skin General skin exam: no rashes or lesions noted Neuro General: patient oriented x3, gait normal, tone normal and moves all extremities Extrem General: Yes normal to inspection and Yes capillary refill normal Assessment & Plan Assessment & Plan (1) Neoplasm of right kidney: Comment: s/p cryoablation right renal tumor Dr. Tatum 04/14/2016 Code(s): D49.511 - Neoplasm of unspecified behavior of right kidney Category: Medical (2) BPH (benign prostatic hyperplasia): Comment: [employer] laser enucleation of the prostate Dr. Ch November 2020 Code(s): N40.0 - Benign prostatic hyperplasia without lower urinary tract symptoms Category: Medical Qualifiers: Lower urinary tract symptom presence: symptoms present Lower urinary tract symptom detail: urinary frequency Qualified Code(s): N40.1 - Benign prostatic hyperplasia with lower urinary tract symptoms; R35.0 - Frequency of micturition Plan Refill tamsulosin Twelve month follows up Medications: Refilled tamsulosin 0.4 mg PO BEDTIME 90 caps 3RF 90 days Patient Instructions: Imaging studies, laboratory and physical exam results were discussed and reviewed in detail. No major barriers to patient understanding were identified. An opportunity to ask questions regarding the treatment plan was provided. All questions were answered. The patient expressed understanding and agreement with the above treatment plan. The patient is aware they should contact our office by phone for worsening of their current condition or the appearance of new urologic symptoms. Compliance is encouraged with any medications and followup testing that is ordered. It is a privilege to participate in the urologic care of your patient. If you have any questions or concerns regarding treatment for the above conditions, or other urologic issues, please do not hesitate to contact me. The office telephone contact is [phone]. This note is constructed using voice recognition software. While every effort has been made to ensure accuracy atm servicer errors may have been included. Yours sincerely, Dr Serjio Ch MD, [facility] - Urology Providers of Expert, Compassionate Care for the Genitourinary System Coding Level of Care Code Est Pt Level 4 (11752) Diagnoses Neoplasm of right kidney D49.511 Benign prostatic hyperplasia with urinary frequency N40.1; R35.0 Lower urinary tract symptom presence: symptoms present Lower urinary tract symptom detail: urinary frequency
== END 2023-10-05 11:18 | disposition home or self-care (01) ==
PROVIDERS: Visit Provider Urology
DX: D49.511 Neoplasm of unspecified behavior of right kidney (principal); N40.1 Benign prostatic hyperplasia with lower urinary tract symptoms; R35.0 Frequency of micturition
CPT/HCPCS: 99213

== ENCOUNTER → 2023-10-05 10:34 | Outpatient (BNVA) | payer MEDICARE, SELFPAY | PROVIDERS: Visit Provider Urology | DX: N40.1 Benign prostatic hyperplasia with lower urinary tract symptoms (principal); R35.0 Frequency of micturition; D49.511 Neoplasm of unspecified behavior of right kidney | CPT/HCPCS: 99212 ==

== ENCOUNTER 2023-10-20 14:27 | Outpatient (AMB) | payer MEDICARE, SELFPAY ==
[2023-10-20 14:28] VITALS: BP 130/58; PULSE 61; O2SAT 98; BMI 25.2
--- NOTE | 2023-10-20 14:28 | MHC.PC.OV ---
Vital Signs 10/20/23 14:28 Height 5 ft 8 in Weight 166 lb 0.4 oz BMI 25.2 BP 130/58 L Blood Pressure Location Lt brachial Position Sitting Pulse 61 Pulse Source Pulse Oximeter Pulse Oximetry (%) 98 Oxygen Delivery Method Room Air Intake Visit Reasons: Hypertension chronic kidney disease Pneumatic Tester Required: No Allergies oxycodone Allergy (Unknown, Verified 10/20/23 14:28) hives aspirin Adverse Reaction (Intermediate, Verified 10/20/23 14:28) bleeding Tobacco use date assessed: 10/20/23 Fall risk assessment: No Falls in past year Last assessed Fall Risk: 10/20/23 Dental Screening Dental Screen Date: 04/08/23 HPI Hypertension chronic kidney disease HPI Details 88-year-old male with chronic kidney disease atrial fibrillation BPH hypertension coming in for follow-up last seen in June 2023 patient has seen the Urology September 2023 seen once a year for history of renal cancer(cryo ablation right renal tumor March 2016) BPH, on tamsulosin. Patient also follows up with Cardiology for pacemaker check. Nephrology notes July 2023 stage 3 chronic kidney disease stable. July 2023 ER visit for left foot redness diagnosis of cellulitis treated with cephalexin prednisone. seen dermatology and did biopsy. - states MAy ususally epistaxis- skipped taking by self-, better today [facility] Medical History Cold intolerance Retrognathia COVID-19 vaccine series completed History of blood transfusion PAF (paroxysmal atrial fibrillation) SSS (sick sinus syndrome) Blood type O+ Atrial fibrillation History of cataract Pulmonary nodule CKD (chronic kidney disease) History of gastric ulcer Loose right total knee arthroplasty Renal cancer Diverticulitis Kidney stones Erectile dysfunction Psoriasis Osteoarthritis BPH (benign prostatic hyperplasia) Neoplasm of right kidney Pacemaker Surgical History Hx of cataract surgery History of prostate surgery H/O lithotripsy Hx of tonsillectomy History of esophagogastroduodenoscopy (EGD) History of bilateral cataract extraction History of total right knee replacement History of total left knee replacement Family History Father No problems noted. Mother Diabetes Cancer Son No problems noted. Son No problems noted. Social History Housing: House Alcohol intake: never Patient Tobacco Use Status: Never used Tobacco e-Cigarette/Vaping Use: Never Used Second Hand Smoke Exposure: No Advance Directives Date on File: 12/08/20 service: No Current occupational status: retired Cognitive needs: Yes Hearing needs: Yes Vision needs: Yes Questionnaire PHQ-9 Over the last 2 weeks, how often have you been bothered by any of the following problems? 1. Little interest or pleasure in doing things: several days 2. Feeling down, depressed, or hopeless: several days 3. Trouble falling or staying asleep, or sleeping too much: several days 4. Feeling tired or having little energy: more than half the days 5. Poor appetite or overeating: not at all 6. Feeling bad about yourself - or that you are a failure or have let yourself or your family down: not at all 7. Trouble concentrating on things, such as reading the newspaper or watching television: several days 8. Moving or speaking so slowly that other people could have noticed. Or the opposite - being so fidgety or restless that you have been moving around a lot more than usual: not at all 9. Thoughts that you would be better off or of hurting yourself in some way: not at all Total score: 6 Depression Screening Interpretation: Negative Depression Screening Done: Yes [id number] - PHQ-9 Billing: Yes Source: Developed by Drs. Ronan Johnston, Malu Yanes, Josse Tamayo and colleagues, with an educational todd from [employer]. Thrive Questionnaire Date Thrive assessed: 07/14/23 I am a: Patient What is your living situation today?: I have a steady place to live Within the past 12 months, did the food you bought not last and you didn't have the money to get more?: Never true Within the past 12 months, did you worry whether your food would run out before you got money to buy more?: Never true Do you have trouble paying for medicines?: No Do you have trouble getting transportation to medical appointments?: No Do you have trouble paying your heating and electricity bill?: No Do you have trouble taking care of your child, family member or friend?: No Do you have trouble with day-to-day activities such as bathing, preparing meals, shopping, managing finances, etc.?: No Are you currently unemployed and looking for a job?: No Are you interested in more education?: No Please select the resources that you would like help with: None Currently or been in a relationship where the following occur: no concerns reported THRIVE Score: 0 AUDIT C Alcohol Use Questionnaire (AUDIT-C) 1. How often do you have a drink containing alcohol?: Never 3. How often do you have six or more drinks on one occasion?: Never Total Score: 0 Score Reviewed/Action Taken: No CALI-7 AMB Questionnaire CALI-7 Date CALI - 7 assessed: 07/14/23 Source: Developed by Drs. Ronan Johnston, Malu Yanes, Josse Tamayo and colleagues, with an educational todd from [employer]. Physical exam (Primary Care) Vital Signs: Last Vital Signs Pulse 61 10/20/23 14:28 BP 130/58 L 10/20/23 14:28 Pulse Ox 98 10/20/23 14:28 Oxygen Delivery Method Room Air 10/20/23 14:28 BMI result Body Mass Index 25.2 Tobacco/Smoking Status: Tobacco use Status Tobacco use date assessed 10/20/23 10/20/23 14:30 Patient Tobacco Use Status Never used Tobacco 10/20/23 14:30 e-Cigarette/Vaping Use Never Used 10/20/23 14:30 PHQ-9: PHQ-9 Score PHQ-9: Total score 6 10/20/23 14:30 Depression Screening Interpretation: Negative Thrive Assessment: Date of Thrive Assessment Date Thrive assessed 07/14/23 10/20/23 14:30 Currently or been in a relationship where the following occur: no concerns reported Const General: alert; No acute distress Eyes Conjunctivae: conjunctivae normal Resp Auscultation: clear to auscultation bilaterally Cardio Rate: regular rate Rhythm: regular rhythm GI Inspection: Yes normal to inspection Extrem General: Yes normal to inspection and No edema Assessment and Plan Assessment & Plan (1) CKD (chronic kidney disease): Comment: St 3, follows renal Stable at 08/2020 with 6 mo f/u Code(s): N18.9 - Chronic kidney disease, unspecified Qualifiers: Chronic kidney disease stage: stage 3 (moderate) Chronic kidney disease stage 3 subtype: stage 3b (GFR 30-44) Qualified Code(s): N18.32 - Chronic kidney disease, stage 3b Plan: Patient follows up with Nephrology continuing to monitor kidney function. Avoid NSAIDs keep well hydrated control the blood pressure (2) SSS (sick sinus syndrome): Code(s): I49.5 - Sick sinus syndrome Plan: Pacemaker being checked regularly by Cardiology (3) PAF (paroxysmal atrial fibrillation): Code(s): I48.0 - Paroxysmal atrial fibrillation Plan: Continue with anticoagulation (4) BPH (benign prostatic hyperplasia): Comment: [employer] laser enucleation of the prostate Dr. Ch November 2020 Code(s): N40.0 - Benign prostatic hyperplasia without lower urinary tract symptoms Qualifiers: Lower urinary tract symptom presence: symptoms present Lower urinary tract symptom detail: urinary frequency Qualified Code(s): N40.1 - Benign prostatic hyperplasia with lower urinary tract symptoms; R35.0 - Frequency of micturition Plan: Patient continues to follow-up with urology on tamsulosin (5) Essential hypertension: Code(s): I10 - Essential (primary) hypertension Plan: Continue with blood pressure medication. Decrease salt intake and exercise takes hydrochlorothiazide only. (6) Epistaxis: Code(s): R04.0 - Epistaxis Plan: discussed about saline nasal spray. option of cautery Orders: Orders Complete Blood Count Auto Diff 4 Months N18.32 - Chronic kidney disease, stage 3b Comprehensive Met. Panel 4 Months N18.32 - Chronic kidney disease, stage 3b Free T4 (Free Thyroxine) 4 Months N18.32 - Chronic kidney disease, stage 3b Thyroid Stimulating Hormone 4 Months N18.32 - Chronic kidney disease, stage 3b Lipid Panel 4 Months E78.00 - Pure hypercholesterolemia, unspecified, N18.32 - Chronic kidney disease, stage 3b Vitamin B12 and Folate 4 Months N18.32 - Chronic kidney disease, stage 3b Magnesium 4 Months N18.32 - Chronic kidney disease, stage 3b Coding Level of Care Code Est Pt Level 4 (54029) Diagnoses Stage 3b chronic kidney disease N18.32 Chronic kidney disease stage: stage 3 (moderate) Chronic kidney disease stage 3 subtype: stage 3b (GFR 30-44) SSS (sick sinus syndrome) I49.5 PAF (paroxysmal atrial fibrillation) I48.0 Benign prostatic hyperplasia with urinary frequency N40.1; R35.0 Lower urinary tract symptom presence: symptoms present Lower urinary tract symptom detail: urinary frequency Essential hypertension I10 Epistaxis R04.0
== END 2023-10-20 15:17 | disposition home or self-care (01) ==
PROVIDERS: PCP Internal Medicine; Visit Provider Internal Medicine
DX: I12.9 Hypertensive chronic kidney disease with stage 1 through stage 4 chronic kidney disease, or unspecified chronic kidney disease (principal); N18.32 Chronic kidney disease, stage 3b; I49.5 Sick sinus syndrome; I48.0 Paroxysmal atrial fibrillation; N40.1 Benign prostatic hyperplasia with lower urinary tract symptoms; R35.0 Frequency of micturition; R04.0 Epistaxis
CPT/HCPCS: 99214

== ENCOUNTER → 2023-11-24 23:59 | Outpatient (BNV) | payer MEDICARE, SELFPAY ==
--- NOTE | 2023-12-04 11:20 | MHC.OFFVIS ---
Intake Visit Reasons: Remote device check- [employer] Allergies oxycodone Allergy (Unknown, Verified 10/20/23 14:28) hives aspirin Adverse Reaction (Intermediate, Verified 10/20/23 14:28) bleeding PFSH Medical History Cold intolerance Retrognathia COVID-19 vaccine series completed History of blood transfusion PAF (paroxysmal atrial fibrillation) SSS (sick sinus syndrome) Blood type O+ Atrial fibrillation History of cataract Pulmonary nodule CKD (chronic kidney disease) History of gastric ulcer Loose right total knee arthroplasty Renal cancer Diverticulitis Kidney stones Erectile dysfunction Psoriasis Osteoarthritis BPH (benign prostatic hyperplasia) Neoplasm of right kidney Pacemaker Surgical History Hx of cataract surgery History of prostate surgery H/O lithotripsy Hx of tonsillectomy History of esophagogastroduodenoscopy (EGD) History of bilateral cataract extraction History of total right knee replacement History of total left knee replacement Family History Father No problems noted. Mother Diabetes Cancer Son No problems noted. Son No problems noted. Social History Housing: House Alcohol intake: never Patient Tobacco Use Status: Never used Tobacco e-Cigarette/Vaping Use: Never Used Second Hand Smoke Exposure: No Advance Directives Date on File: 12/08/20 service: No Current occupational status: retired Cognitive needs: Yes Hearing needs: Yes Vision needs: Yes Office Procedures Cardiac Device Check Cardiac Device Check Details: Date of service- 11/24/2023 ; Battery life >8 years; normal lead parameters; AP 40%; ALL AROUND PRESSER 99%; AT/AF burden 6.5%. Overall normal device function. [id number] Cardiac Device Interrogation, pacemaker Procedure code (CPT) selection complete Assessment & Plan Assessment & Plan (1) PAF (paroxysmal atrial fibrillation): Code(s): I48.0 - Paroxysmal atrial fibrillation Category: Medical (2) SSS (sick sinus syndrome): Code(s): I49.5 - Sick sinus syndrome Category: Medical Plan x Coding Level of Care Code Procedure Only Diagnoses PAF (paroxysmal atrial fibrillation) I48.0 SSS (sick sinus syndrome) I49.5 CPT Codes Cardiac Device Check - Cardiac Device 12: [id number] Cardiac Device Interrogation, pacemaker ([id number])
== END ==
PROVIDERS: PCP Internal Medicine; Visit Provider Internal Medicine
DX: I48.0 Paroxysmal atrial fibrillation (principal); I49.5 Sick sinus syndrome; Z95.0 Presence of cardiac pacemaker
CPT/HCPCS: 93294

== ENCOUNTER 2024-01-16 13:47 | Outpatient (REF) | payer MEDICARE, SELFPAY ==
[2024-01-16 14:03] LABS: MANUAL DIFF FLAG NO
[2024-01-16 14:47] LABS: Basophils Percent Auto 0.2 % (0-2); Eosinophils Percent Auto 0.5 % (0-4); Hematocrit 37.8 % (42.0-52.0); Hemoglobin 12.8 g/dl (14.0-18.0); Imm Gran Abs Auto 0.03 X10*3/uL (0.00-0.03); Imm Gran Pct Auto 0.5 % (0.0-0.4); Lymphocytes Absolute Auto 1.3 X10*3/uL (1.2-4.9); Mean Corpuscular HGB Conc 33.9 g/dl (31.0-36.0); Mean Corpuscular Volume 94.5 fL (80.0-98.0); Mean Platelet Volume 11.9 fL (9.4-12.4); Monocytes Absolute Auto 0.5 X10*3/uL (0.1-1.2); Monocytes Percent Auto 7.3 % (2-11); Neutrophils Absolute Auto 4.7 x10*3/uL (2.0-8.3); Neutrophils Percent Auto 71.5 % (45-73); Platelet Count 165 X10*3/uL (160-400); Red Cell Distribution Width 12.3 % (11.0-16.0); White Blood Count 6.6 X10*3/uL (4.8-10.8)
[2024-01-16 15:18] LABS: Anion Gap 13 (12-20); Blood Urea Nitrogen 31 mg/dL (9-16); Calcium 9.9 mg/dL (8.4-10.2); Carbon Dioxide 27 mmol/L (22-29); Chloride 99 mmol/L (96-108); Estimated Glomerular Filt Rate 40; Glucose Random 146 mg/dL (60-115); Potassium 3.9 mmol/L (3.3-5.1); Sodium 135 mmol/L (135-145); Uric Acid 8.3 mg/dL (3.4-7.0)
[2024-01-16 15:24] LABS: Parathyroid Hormone Intact 44.9 pg/mL (8.7-77.1)
[2024-01-16 16:06] LABS: Total Protein Urine Random < 7 mg/dL (<12)
== END 2024-01-16 13:48 | disposition home or self-care (01) ==
LOC: HO.LAB 13:47
PROVIDERS: Visit Provider Internal Medicine Hypertension Specialist
DX: N18.9 Chronic kidney disease, unspecified (principal)
CPT/HCPCS: 36415; 80048; 83970; 84156; 84550; 85025

== ENCOUNTER 2024-01-23 10:44 | Outpatient (AMB) | payer MEDICARE, SELFPAY ==
--- NOTE | 2024-01-23 10:43 | HO.NEPHOV_ITS ---
Vital Signs 01/23/24 10:44 Height 5 ft 8 in Weight 167 lb BMI 25.4 BP 144/62 H Blood Pressure Location Lt brachial Position Sitting Intake Visit Reasons: CKD/ 5 MO FU/ LVM Scrum Project Manager Required: No Accompanied by: Self / Same As Patient Allergies oxycodone Allergy (Unknown, Verified 01/23/24 10:45) hives aspirin Adverse Reaction (Intermediate, Verified 01/23/24 10:45) bleeding Medication List - Last Reconciled 01/23/24 by Félix Moreno MD calcium carbonate 500 mg PO DAILY PRN carbamide peroxide 6.5% (Debrox) 5 drps otic (ears) DAILY PRN cyanocobalamin (vitamin B-12) 250 mcg PO DAILY fluorouracil 5% appl topical hydrochlorothiazide 12.5 mg PO DAILY 90 days [id number]-[id number]-twcwwy 305-68-570-300 mcg (Centrum Silver Men) 1 tab PO DAILY rivaroxaban (Xarelto) 15 mg PO DAILY tamsulosin 0.4 mg PO BEDTIME 90 days triamcinolone acetonide 0.5% 1 appl topical BID HPI Comments Details: 87-year-old man with a history of longstanding hypertension and chronic kidney disease. He has a history of a renal mass status post cryoablation. From renal standpoint is doing very well. No urine symptoms No hematuria. No shortness of breath 08/21 ;REcently in ER and diagnosed with cellulitis - left foot ;s/p Cephalexin 01/23/24: Ramiro landers the same. Nonew issues. Seen by [facility] Medical History Cold intolerance Retrognathia COVID-19 vaccine series completed History of blood transfusion PAF (paroxysmal atrial fibrillation) SSS (sick sinus syndrome) Blood type O+ Atrial fibrillation History of cataract Pulmonary nodule CKD (chronic kidney disease) History of gastric ulcer Loose right total knee arthroplasty Renal cancer Diverticulitis Kidney stones Erectile dysfunction Psoriasis Osteoarthritis BPH (benign prostatic hyperplasia) Neoplasm of right kidney Pacemaker Surgical History Hx of cataract surgery History of prostate surgery H/O lithotripsy Hx of tonsillectomy History of esophagogastroduodenoscopy (EGD) History of bilateral cataract extraction History of total right knee replacement History of total left knee replacement Family History Father No problems noted. Mother Diabetes Cancer Son No problems noted. Son No problems noted. Social History Housing: House Alcohol intake: never Patient Tobacco Use Status: Never used Tobacco e-Cigarette/Vaping Use: Never Used Second Hand Smoke Exposure: No Advance Directives Date on File: 12/08/20 service: No Current occupational status: retired Cognitive needs: Yes Hearing needs: Yes Vision needs: Yes Physical Exam Vital Signs: Last Vital Signs BP 144/62 H 01/23/24 10:44 BMI result Body Mass Index 25.4 Const General: comfortable; No acute distress Orientation/consciousness: patient oriented x3 Eyes General: appearance normal, both eyes and all related structures Visual Brothers: normal visual brothers by confrontation Neck Neck: Yes supple and Yes no JVD Resp Effort & Inspection: normal respiratory effort and respiratory effort not decreased Auscultation: rhonchi Cardio Palpation: no palpable S3 and no palpable S4 Heart sounds: no rubs GI Inspection: Yes normal to inspection Palpation (GI): Soft to palpation Percussion: Yes normal to percussion Auscultation: normal bowel sounds General: Yes no CVA tenderness Back/Spine/Pelvis Back: no CVA tenderness Skin General skin exam: no petechiae and no purpura Neuro General: patient oriented x3 and no focal motor deficits Extrem General: No clubbing and No edema Results Reviewed Nephrology Results: Hgb 12.8 g/dl (14.0-18.0) L 01/16/24 WBC 6.6 X10*3/uL (4.8-10.8) 01/16/24 Plt Count 165 X10*3/uL (160-400) 01/16/24 Sodium 135 mmol/L (135-145) 01/16/24 Potassium 3.9 mmol/L (3.3-5.1) 01/16/24 Chloride 99 mmol/L (96-108) 01/16/24 Carbon Dioxide 27 mmol/L (22-29) 01/16/24 BUN 31 mg/dL (9-16) H 01/16/24 Creatinine 1.63 mg/dL (0.5-1.4) H 01/16/24 Calcium 9.9 mg/dL (8.4-10.2) 01/16/24 PTH Intact 44.9 pg/mL (8.7-77.1) 01/16/24 Renal US 09/20/23 Assessment & Plan Assessment & Plan (1) Chronic kidney disease, stage 3a: Code(s): N18.31 - Chronic kidney disease, stage 3a Category: Medical (2) Essential hypertension: Code(s): I10 - Essential (primary) hypertension Category: Medical (3) Neoplasm of right kidney: Comment: s/p cryoablation right renal tumor Dr. Tatum 04/14/2016 Code(s): D49.511 - Neoplasm of unspecified behavior of right kidney Category: Medical (4) CKD (chronic kidney disease): Code(s): N18.9 - Chronic kidney disease, unspecified Category: Medical Plan Master has stage III chronic disease in a setting of longstanding hypertension. Overall renal function stable with a creatinine of around 1.4 mg/dL. to 1.6 mg/dL Goal is to slow the progression of renal disease Our nephrotoxic agents. Maintain blood pressure less than 130/80. He has a renal mass. Status post cryoablation in the past. Continue with Urology follow-up. Screen for anemia and SHPT - ordered Orders: Orders Complete Blood Count Auto Diff 6 Months N18.31 - Chronic kidney disease, stage 3a Comprehensive Met. Panel 6 Months N18.31 - Chronic kidney disease, stage 3a Parathyroid Hormone Related Pr 6 Months N18.31 - Chronic kidney disease, stage 3a Coding Level of Care Code Est Pt Level 4 (13427) Diagnoses Chronic kidney disease, stage 3a N18.31 Essential hypertension I10 Neoplasm of right kidney D49.511 CKD (chronic kidney disease) N18.9
[2024-01-23 10:44] VITALS: BP 144/62; BMI 25.4
== END 2024-01-23 10:56 | disposition home or self-care (01) ==
PROVIDERS: PCP Internal Medicine; Visit Provider Internal Medicine Hypertension Specialist
DX: I12.9 Hypertensive chronic kidney disease with stage 1 through stage 4 chronic kidney disease, or unspecified chronic kidney disease (principal); N18.31 Chronic kidney disease, stage 3a; D49.511 Neoplasm of unspecified behavior of right kidney; N18.9 Chronic kidney disease, unspecified
CPT/HCPCS: 99214

== ENCOUNTER → 2024-01-23 10:44 | Outpatient (BNVA) | payer MEDICARE, SELFPAY | PROVIDERS: PCP Internal Medicine; Visit Provider Internal Medicine Hypertension Specialist | DX: I12.9 Hypertensive chronic kidney disease with stage 1 through stage 4 chronic kidney disease, or unspecified chronic kidney disease (principal); N18.31 Chronic kidney disease, stage 3a; D49.511 Neoplasm of unspecified behavior of right kidney | CPT/HCPCS: 99212 ==

== ENCOUNTER 2024-02-06 13:22 | Outpatient (AMB) | payer BC, SELFPAY ==
--- NOTE | 2024-02-06 14:02 | A.OFFVIS_ITS ---
Vital Signs 02/06/24 14:06 Height 5 ft 8 in Weight 174 lb BMI 26.5 BP 130/52 L Blood Pressure Location Lt brachial Intake Visit Reasons: 6 month follow up w. device check Heavy Equipment Operator Required: No Toy Assembly Supervisor: Toy Assembly Supervisor Present Allergies oxycodone Allergy (Unknown, Verified 02/06/24 14:07) hives aspirin Adverse Reaction (Intermediate, Verified 02/06/24 14:07) bleeding Medication List - Last Reconciled 02/06/24 by ELIAZAR Catalan calcium carbonate 500 mg PO DAILY PRN carbamide peroxide 6.5% (Debrox) 5 drps otic (ears) DAILY PRN cyanocobalamin (vitamin B-12) 250 mcg PO DAILY fluorouracil 5% appl topical hydrochlorothiazide 12.5 mg PO DAILY 90 days [id number]-mnt-jarpv-Q7-xyvasge-jzzuqs 341-88-394-300 mcg (Centrum Silver Men) 1 tab PO DAILY rivaroxaban (Xarelto) 15 mg PO DAILY tamsulosin 0.4 mg PO BEDTIME 90 days triamcinolone acetonide 0.5% 1 appl topical BID HPI HPI 6 month follow up w. device check : Details: Master is an 88-year-old male with past medical history of hypertension, obstructive sleep apnea which is untreated, paroxysmal atrial fibrillation, sick sinus syndrome status post dual-chamber pacemaker placement who presents for follow-up. Today he reports that he still has issues with fatigue, lack of energy, generalized body aches and pains. He has no localized chest area discomfort. No concerning shortness of breath, palpitations, lightheadedness, presyncope, syncope, falls. No PND, orthopnea or edema. He is taking his meds as directed. He does only light activities around the house. He is trying to increase his walking as able. is present. [facility] Medical History Cold intolerance Retrognathia COVID-19 vaccine series completed History of blood transfusion PAF (paroxysmal atrial fibrillation) SSS (sick sinus syndrome) Blood type O+ Atrial fibrillation History of cataract Pulmonary nodule CKD (chronic kidney disease) History of gastric ulcer Loose right total knee arthroplasty Renal cancer Diverticulitis Kidney stones Erectile dysfunction Psoriasis Osteoarthritis BPH (benign prostatic hyperplasia) Neoplasm of right kidney Pacemaker Surgical History Hx of cataract surgery History of prostate surgery H/O lithotripsy Hx of tonsillectomy History of esophagogastroduodenoscopy (EGD) History of bilateral cataract extraction History of total right knee replacement History of total left knee replacement Family History Father No problems noted. Mother Diabetes Cancer Son No problems noted. Son No problems noted. Social History Housing: House Alcohol intake: never Patient Tobacco Use Status: Never used Tobacco e-Cigarette/Vaping Use: Never Used Second Hand Smoke Exposure: No Advance Directives Date on File: 12/08/20 service: No Current occupational status: retired Cognitive needs: Yes Hearing needs: Yes Vision needs: Yes Review of Systems Const All systems reviewed & are unremarkable except as noted in HPI and below ENT Denies dizziness Card Denies chest pain, Denies chest pain at rest, Denies chest pain with activity, Denies rapid heart rate, Denies pedal edema, Denies edema, Denies leg edema, Denies lightheadedness, Denies palpitations, Denies dyspnea, Denies dyspnea on exertion and Denies orthopnea Resp Denies cough, Denies dyspnea and Denies dyspnea on exertion GI Denies hematochezia and Denies change in stool character Musc Denies abnormal gait, Denies limited range of motion, Denies muscle cramps, Denies muscle weakness, Denies numbness, Denies radiating pain into limb, Denies stiffness and Denies tingling Neuro Denies abnormal gait, Denies dizziness, Denies numbness and Denies tingling Endo Denies palpitations Physical Exam Vital Signs: Last Vital Signs BP 130/52 L 02/06/24 14:06 BMI result Body Mass Index 26.5 Const General: cooperative, healthy appearing, comfortable and no acute distress Orientation/consciousness: patient oriented x3 Neck Neck: Yes normal visual inspection Resp Effort & Inspection: normal respiratory effort Auscultation: clear to auscultation bilaterally, no rales, no rhonchi and no wheezes Cardio Jugular venous distension: no JVD Rate: regular rate Rhythm: regular rhythm Heart sounds: S1 normal heart sound present, S2 normal heart sound present, no murmurs and no rubs Neuro General: patient oriented x3 Extrem General: Yes normal to inspection Psych Appearance: grossly normal Mental Status: mental status grossly normal Speech and movement: Normal speech and movement present Office Procedures Cardiac Device Check Cardiac Device Check Details: Medtronic dual chamber pacemaker interrogation today, battery 8 years, AAI to DDD mode changed to DDD, right atrial threshold 0.5 volts at 0.4 milliseconds, RV threshold 1.0 volts at 0.4 milliseconds, AT/ AF 5.9%, 11 days over the last 6 months V paced 99%, a paced 41.8% [id number] Cardiac Device Check, pacemaker dual lead Procedure code (CPT) selection complete EKG Details: Today, read by me, atrial and ventricular paced rhythm, artifact on tracing, rate 60 [id number], Complete Assessment & Plan Assessment & Plan (1) PAF (paroxysmal atrial fibrillation): Code(s): I48.0 - Paroxysmal atrial fibrillation Category: Medical Plan: History of paroxysmal atrial fibrillation as seen on interrogations of his pacemaker. He denies any heart palpitations or shortness of breath that can be as a result of the AFib. Overall seems asymptomatic. He is not requiring rate slowing medications. Heart rates seem well controlled, less than 100 when in atrial fibrillation. Office interrogation done today shows AFib burden 5.9% in the last 6 months. He is on Xarelto 15 mg daily for anticoagulation. Tells me that every spring and fall he does get nosebleeds due to the weather change. Informed him that now on anticoagulation bleeding may persist longer if it occurs. Emergency care if ever needed. 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 Interrogation done today shows device is functioning normally. Battery 8 years. Remote monitoring in use. Next office interrogation due in 6 months. (3) SSS (sick sinus syndrome): Code(s): I49.5 - Sick sinus syndrome Category: Medical Plan: As above (4) Essential hypertension: Code(s): I10 - Essential (primary) hypertension Category: Medical Plan: Normal range at this time. No medication changes made. Continue hydrochlorothiazide (5) SHORTY (obstructive sleep apnea): Code(s): G47.33 - Obstructive sleep apnea (adult) (pediatric) Category: Medical Plan: Reported history of obstructive sleep apnea, mild. Not using CPAP and not interested. Plan Time spent on chart review, documentation, interview and assessment Coding Level of Care Code Est Pt Level 4 (42094) Diagnoses PAF (paroxysmal atrial fibrillation) I48.0 Pacemaker Z95.0 SSS (sick sinus syndrome) I49.5 Essential hypertension I10 SHORTY (obstructive sleep apnea) G47.33 CPT Codes Cardiac Device Check - Cardiac Device 2: [id number] Cardiac Device Check, pacemaker dual lead ([id number]) EKG - CPT: 43145-[id number], Complete ([id number]) Time Spent (min) 28
[2024-02-06 14:06] VITALS: BP 130/52; BMI 26.5
== END 2024-02-06 14:29 | disposition home or self-care (01) ==
PROVIDERS: PCP Internal Medicine; Visit Provider Nurse Practitioner Family
DX: I48.0 Paroxysmal atrial fibrillation (principal); Z95.0 Presence of cardiac pacemaker; I49.5 Sick sinus syndrome; I10 Essential (primary) hypertension; G47.33 Obstructive sleep apnea (adult) (pediatric)
CPT/HCPCS: 93010; 93280; 99214

== ENCOUNTER → 2024-02-06 13:22 | Outpatient (BNVA) | payer BC, SELFPAY | PROVIDERS: PCP Internal Medicine; Visit Provider Nurse Practitioner Family | DX: I48.0 Paroxysmal atrial fibrillation (principal); I10 Essential (primary) hypertension; G47.33 Obstructive sleep apnea (adult) (pediatric); Z86.79 Personal history of other diseases of the circulatory system; Z79.01 Long term (current) use of anticoagulants; Z79.899 Other long term (current) drug therapy; Z45.018 Encounter for adjustment and management of other part of cardiac pacemaker | CPT/HCPCS: 93005; 93280 ==

== ENCOUNTER → 2024-02-22 23:59 | Outpatient (BNV) | payer BC, SELFPAY ==
--- NOTE | 2024-02-26 14:23 | A.OFFVIS_ITS ---
Intake Visit Reasons: Remote device check- Medtronic Allergies oxycodone Allergy (Unknown, Verified 02/06/24 14:07) hives aspirin Adverse Reaction (Intermediate, Verified 02/06/24 14:07) bleeding PFSH Medical History Cold intolerance Retrognathia COVID-19 vaccine series completed History of blood transfusion PAF (paroxysmal atrial fibrillation) SSS (sick sinus syndrome) Blood type O+ Atrial fibrillation History of cataract Pulmonary nodule CKD (chronic kidney disease) History of gastric ulcer Loose right total knee arthroplasty Renal cancer Diverticulitis Kidney stones Erectile dysfunction Psoriasis Osteoarthritis BPH (benign prostatic hyperplasia) Neoplasm of right kidney Pacemaker Surgical History Hx of cataract surgery History of prostate surgery H/O lithotripsy Hx of tonsillectomy History of esophagogastroduodenoscopy (EGD) History of bilateral cataract extraction History of total right knee replacement History of total left knee replacement Family History Father No problems noted. Mother Diabetes Cancer Son No problems noted. Son No problems noted. Social History Housing: House Alcohol intake: never Patient Tobacco Use Status: Never used Tobacco e-Cigarette/Vaping Use: Never Used Second Hand Smoke Exposure: No Advance Directives Date on File: 12/08/20 service: No Current occupational status: retired Cognitive needs: Yes Hearing needs: Yes Vision needs: Yes Office Procedures Cardiac Device Check Cardiac Device Check Details: Date of service- 02/22/2024 ; Battery life >7 years; normal lead parameters; AP 25%; ENVIRONMENTAL RESEARCH SCIENTIST 97%; AT/AF burden 23%. Overall normal device function. 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
== END ==
PROVIDERS: PCP Internal Medicine; Visit Provider Internal Medicine
DX: I49.5 Sick sinus syndrome (principal); I48.0 Paroxysmal atrial fibrillation; Z95.0 Presence of cardiac pacemaker
CPT/HCPCS: 93294

== ENCOUNTER 2024-02-27 07:51 | Outpatient (REF) | payer BC, SELFPAY ==
[2024-02-27 08:11] LABS: MANUAL DIFF FLAG NO
[2024-02-27 08:32] LABS: Basophils Percent Auto 0.2 % (0-2); Eosinophils Absolute Auto 0.1 X10*3/uL (0.0-0.4); Eosinophils Percent Auto 1.9 % (0-4); Hematocrit 37.6 % (42.0-52.0); Hemoglobin 12.6 g/dl (14.0-18.0); Imm Gran Abs Auto 0.02 X10*3/uL (0.00-0.03); Imm Gran Pct Auto 0.5 % (0.0-0.4); Lymphocytes Absolute Auto 1.2 X10*3/uL (1.2-4.9); Lymphocytes Percent Auto 27.2 % (20-40); Mean Corpuscular HGB Conc 33.5 g/dl (31.0-36.0); Mean Corpuscular Hemoglobin 31.9 pg (27.0-33.0); Mean Corpuscular Volume 95.2 fL (80.0-98.0); Mean Platelet Volume 11.2 fL (9.4-12.4); Monocytes Absolute Auto 0.5 X10*3/uL (0.1-1.2); Neutrophils Absolute Auto 2.5 x10*3/uL (2.0-8.3); Neutrophils Percent Auto 59.2 % (45-73); Platelet Count 181 X10*3/uL (160-400); Red Blood Count 3.95 X10*6/uL (4.60-5.80); Red Cell Distribution Width 12.5 % (11.0-16.0); White Blood Count 4.3 X10*3/uL (4.8-10.8)
[2024-02-27 09:05] LABS: Alanine Aminotransferase 15 U/L (0-40); Albumin Level 3.9 g/dL (3.5-5.0); Alkaline Phosphatase 76 U/L (39-117); Anion Gap 12 (12-20); Aspartate Amino Transferase 19 U/L (5-37); Bilirubin Total 0.6 mg/dL (0.0-1.0); Blood Urea Nitrogen 30 mg/dL (9-16); Calcium 9.9 mg/dL (8.4-10.2); Carbon Dioxide 27 mmol/L (22-29); Chloride 104 mmol/L (96-108); Cholesterol 151 mg/dL (<200); Estimated Glomerular Filt Rate 39; Glucose Random 88 mg/dL (60-115); HDL Cholesterol 58 mg/dL (>40); LDL Cholesterol Calculated 80 mg/dL (<100); Magnesium 2.2 mg/dL (1.6-2.6); Potassium 3.8 mmol/L (3.3-5.1); Sodium 139 mmol/L (135-145); Triglycerides 69 mg/dL (<150)
[2024-02-27 09:24] LABS: Free T4 (Free Thyroxine) 0.98 ng/dL (0.71-1.85); Thyroid Stimulating Hormone 0.96 uIU/mL (0.32-4.0)
[2024-02-27 09:54] LABS: Folate 16.7 ng/mL (> or = 4.0); Vitamin B12 1165 pg/mL (200-900)
== END 2024-02-27 07:52 | disposition home or self-care (01) ==
LOC: HO.LAB 07:51
PROVIDERS: PCP Internal Medicine; Visit Provider Internal Medicine
DX: N18.32 Chronic kidney disease, stage 3b (principal); E78.00 Pure hypercholesterolemia, unspecified
CPT/HCPCS: 36415; 80053; 80061; 82607; 82746; 83735; 84439; 84443; 85025

== ENCOUNTER 2024-02-29 09:54 | Outpatient (AMB) | payer BC, SELFPAY ==
[2024-02-29 09:57] VITALS: BP 138/60; PULSE 58; O2SAT 99; BMI 25.4
--- NOTE | 2024-02-29 09:57 | MHC.PC.OV ---
Vital Signs 02/29/24 09:57 Height 5 ft 8 in Weight 167 lb BMI 25.4 BP 138/60 Blood Pressure Location Lt brachial Position Sitting Pulse 58 Pulse Source Pulse Oximeter Pulse Oximetry (%) 99 Oxygen Delivery Method Room Air Intake Visit Reasons: 3mof\u Intake Note: Patient here for a 3 month follow up Youth Ministry Director Required: No Accompanied by: Self / Same As Patient Allergies oxycodone Allergy (Unknown, Verified 02/29/24 10:00) hives aspirin Adverse Reaction (Intermediate, Verified 02/29/24 10:00) bleeding Medication List - Last Reconciled 02/29/24 by Devendra Comer MD calcium carbonate 500 mg PO DAILY PRN carbamide peroxide 6.5% (Debrox) 5 drps otic (ears) DAILY PRN cyanocobalamin (vitamin B-12) 250 mcg PO DAILY fluorouracil 5% appl topical hydrochlorothiazide 12.5 mg PO DAILY 90 days [id number]-oid-ssdkf-N8-hquvale-ieqnxf 234-52-260-300 mcg (Centrum Silver Men) 1 tab PO DAILY rivaroxaban (Xarelto) 15 mg PO DAILY tamsulosin 0.4 mg PO BEDTIME 90 days triamcinolone acetonide 0.5% 1 appl topical BID Tobacco use date assessed: 10/20/23 Fall risk assessment: No Falls in past year Last assessed Fall Risk: 02/29/24 Dental Screening Dental Screen Date: 02/29/24 Did you have a dental visit in the last 12 months?: Yes Did you have a dental problem in the last 6 months where you did not have access to dental care?: No Was dental information given to patient?: Patient has dentist HPI 3mof\u HPI Details 88-year-old male (noted 7 lb weight loss) with a history of chronic kidney disease sick sinus syndrome atrial fibrillation BPH hypertension last seen in September 2023. Patient regularly follows up with Cardiology for device check with atrial fibrillation on anticoagulation patient also has seen Nephrology chronic kidney disease stage IIIA in setting of longstanding hypertension. Stable wants ear checked, has been placing debrox PFSH Medical History (Updated 02/29/24 @ 10:04 by PENNY Santiago) Cold intolerance Retrognathia COVID-19 vaccine series completed History of blood transfusion PAF (paroxysmal atrial fibrillation) SSS (sick sinus syndrome) Blood type O+ Atrial fibrillation History of cataract Pulmonary nodule CKD (chronic kidney disease) History of gastric ulcer Loose right total knee arthroplasty Renal cancer Diverticulitis Kidney stones Erectile dysfunction Psoriasis Osteoarthritis BPH (benign prostatic hyperplasia) Neoplasm of right kidney Pacemaker Surgical History (Updated 02/29/24 @ 10:04 by PENNY Santiago) History of skin cancer Hx of cataract surgery History of prostate surgery H/O lithotripsy Hx of tonsillectomy History of esophagogastroduodenoscopy (EGD) History of bilateral cataract extraction History of total right knee replacement History of total left knee replacement Family History Father No problems noted. Mother Diabetes Cancer Son No problems noted. Son No problems noted. Social History Housing: House Alcohol intake: never Patient Tobacco Use Status: Never used Tobacco e-Cigarette/Vaping Use: Never Used Second Hand Smoke Exposure: No Advance Directives Date on File: 12/08/20 service: No Current occupational status: retired Cognitive needs: Yes Hearing needs: Yes Vision needs: Yes Questionnaire Thrive Questionnaire Date Thrive assessed: 07/14/23 Are you currently unemployed and looking for a job?: No CALI-7 AMB Questionnaire CALI-7 Date CALI - 7 assessed: 07/14/23 Source: Developed by Drs. Ronan Johnston, Malu Yanes, Josse Tamayo and colleagues, with an educational todd from [employer]. Physical exam (Primary Care) Vital Signs: Last Vital Signs Pulse 58 02/29/24 09:57 BP 138/60 02/29/24 09:57 Pulse Ox 99 02/29/24 09:57 Oxygen Delivery Method Room Air 02/29/24 09:57 BMI result Body Mass Index 25.4 Tobacco/Smoking Status: Tobacco use Status Tobacco use date assessed 10/20/23 02/29/24 10:06 Patient Tobacco Use Status Never used Tobacco 02/29/24 10:06 e-Cigarette/Vaping Use Never Used 02/29/24 10:06 Thrive Assessment: Date of Thrive Assessment Date Thrive assessed 07/14/23 02/29/24 10:06 Const General: alert; No acute distress HENMT Other: impacted cerumen bilateral Eyes Conjunctivae: conjunctivae normal Resp Auscultation: clear to auscultation bilaterally Cardio Rate: regular rate Rhythm: regular rhythm GI Inspection: Yes normal to inspection Extrem General: Yes normal to inspection and No edema Office Procedures Cerumen Removal From which ear canal was the cerumen removed: bilateral Removal: otoscope w/curette and cerumen loop/spoon Notes: patient tolerated procedure well, no complications and ear canal clear [id number] Wax Removal by Spoon/Curette Coding Level of Care Code Est Pt Level 4 (76255) Diagnoses PAF (paroxysmal atrial fibrillation) I48.0 SSS (sick sinus syndrome) I49.5 Benign prostatic hyperplasia with urinary frequency N40.1; R35.0 Lower urinary tract symptom presence: symptoms present Lower urinary tract symptom detail: urinary frequency Essential hypertension I10 Chronic kidney disease, stage 3a N18.31 Impacted cerumen of both ears H61.23 CPT Codes Office Procedure - CPT: 22518-Den Wax Removal by Spoon/Curette ([id number]) Assessment & Plan Assessment & Plan (1) PAF (paroxysmal atrial fibrillation): Code(s): I48.0 - Paroxysmal atrial fibrillation Category: Medical Plan: Continue to follow-up with cardiology on anticoagulation (2) SSS (sick sinus syndrome): Code(s): I49.5 - Sick sinus syndrome Category: Medical Plan: Patient has a pacemaker and has been having regular device check (3) BPH (benign prostatic hyperplasia): Comment: [employer] laser enucleation of the prostate Dr. Ch November 2020 Code(s): N40.0 - Benign prostatic hyperplasia without lower urinary tract symptoms Category: Medical Qualifiers: Lower urinary tract symptom presence: symptoms present Lower urinary tract symptom detail: urinary frequency Qualified Code(s): N40.1 - Benign prostatic hyperplasia with lower urinary tract symptoms; R35.0 - Frequency of micturition Plan: Continue with tamsulosin (4) Essential hypertension: Code(s): I10 - Essential (primary) hypertension Category: Medical Plan: Continue with blood pressure medication. Decrease salt intake and exercise stable on hydrochlorothiazide (5) Chronic kidney disease, stage 3a: Code(s): N18.31 - Chronic kidney disease, stage 3a Category: Medical Plan: Continue to follow-up with Nephrology avoid NSAID control blood pressure keep well hydrated. (6) Impacted cerumen of both ears: Code(s): H61.23 - Impacted cerumen, bilateral Category: Medical Plan: scoop used and otoscope- TM intact bilateral
== END 2024-02-29 10:39 | disposition home or self-care (01) ==
PROVIDERS: PCP Internal Medicine; Visit Provider Internal Medicine
DX: I48.0 Paroxysmal atrial fibrillation (principal); I12.9 Hypertensive chronic kidney disease with stage 1 through stage 4 chronic kidney disease, or unspecified chronic kidney disease; I49.5 Sick sinus syndrome; N18.31 Chronic kidney disease, stage 3a; H61.23 Impacted cerumen, bilateral; N40.1 Benign prostatic hyperplasia with lower urinary tract symptoms; R35.0 Frequency of micturition

== ENCOUNTER → 2024-02-29 09:54 | Outpatient (BNVA) | payer BC, SELFPAY | PROVIDERS: PCP Internal Medicine; Visit Provider Internal Medicine | DX: I48.0 Paroxysmal atrial fibrillation (principal); N40.1 Benign prostatic hyperplasia with lower urinary tract symptoms; R35.0 Frequency of micturition; I12.9 Hypertensive chronic kidney disease with stage 1 through stage 4 chronic kidney disease, or unspecified chronic kidney disease; N18.31 Chronic kidney disease, stage 3a; H61.23 Impacted cerumen, bilateral; Z86.79 Personal history of other diseases of the circulatory system; Z95.0 Presence of cardiac pacemaker | CPT/HCPCS: 69210 ==

== ENCOUNTER → 2024-05-23 23:59 | Outpatient (BNV) | payer BC, SELFPAY ==
--- NOTE | 2024-06-03 18:13 | MHC.OFFVIS ---
Intake Visit Reasons: Remote device check- Medtronic Allergies oxycodone Allergy (Unknown, Verified 02/29/24 10:00) hives aspirin Adverse Reaction (Intermediate, Verified 02/29/24 10:00) bleeding PFSH Medical History (Updated 02/29/24 @ 10:04 by PENNY Santiago) Cold intolerance Retrognathia COVID-19 vaccine series completed History of blood transfusion PAF (paroxysmal atrial fibrillation) SSS (sick sinus syndrome) Blood type O+ Atrial fibrillation History of cataract Pulmonary nodule CKD (chronic kidney disease) History of gastric ulcer Loose right total knee arthroplasty Renal cancer Diverticulitis Kidney stones Erectile dysfunction Psoriasis Osteoarthritis BPH (benign prostatic hyperplasia) Neoplasm of right kidney Pacemaker Surgical History (Updated 02/29/24 @ 10:04 by PENNY Santiago) History of skin cancer Hx of cataract surgery History of prostate surgery H/O lithotripsy Hx of tonsillectomy History of esophagogastroduodenoscopy (EGD) History of bilateral cataract extraction History of total right knee replacement History of total left knee replacement Family History Father No problems noted. Mother Diabetes Cancer Son No problems noted. Son No problems noted. Social History Housing: House Alcohol intake: never Patient Tobacco Use Status: Never used Tobacco e-Cigarette/Vaping Use: Never Used Second Hand Smoke Exposure: No Advance Directives Date on File: 12/08/20 service: No Current occupational status: retired Cognitive needs: Yes Hearing needs: Yes Vision needs: Yes Office Procedures Cardiac Device Check Cardiac Device Check Details: Date of service- 05/23/2024 ; Battery life >7 years; normal lead parameters; AP 35%; UTILIZATION MANAGEMENT UM NURSE 97%; Time in AT/AF 14%, but controlled rates. Overall normal device function. 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
== END ==
PROVIDERS: PCP Internal Medicine; Visit Provider Internal Medicine
DX: I49.5 Sick sinus syndrome (principal); I48.0 Paroxysmal atrial fibrillation; Z95.0 Presence of cardiac pacemaker
CPT/HCPCS: 93294

== ENCOUNTER 2024-07-19 09:53 | Outpatient (REF) | payer BC, SELFPAY ==
[2024-07-19 10:20] LABS: MANUAL DIFF FLAG NO
[2024-07-19 10:24] LABS: Basophils Percent Auto 0.2 % (0-2); Eosinophils Absolute Auto 0.1 X10*3/uL (0.0-0.4); Eosinophils Percent Auto 1.5 % (0-4); Hematocrit 36.3 % (42.0-52.0); Hemoglobin 12.5 g/dl (14.0-18.0); Imm Gran Abs Auto 0.02 X10*3/uL (0.00-0.03); Imm Gran Pct Auto 0.4 % (0.0-0.4); Lymphocytes Absolute Auto 1.1 X10*3/uL (1.2-4.9); Lymphocytes Percent Auto 22.4 % (20-40); Mean Corpuscular HGB Conc 34.4 g/dl (31.0-36.0); Mean Corpuscular Hemoglobin 32.3 pg (27.0-33.0); Mean Corpuscular Volume 93.8 fL (80.0-98.0); Mean Platelet Volume 11.7 fL (9.4-12.4); Monocytes Absolute Auto 0.5 X10*3/uL (0.1-1.2); Monocytes Percent Auto 11.1 % (2-11); Neutrophils Absolute Auto 3.1 x10*3/uL (2.0-8.3); Neutrophils Percent Auto 64.4 % (45-73); Platelet Count 149 X10*3/uL (160-400); Red Blood Count 3.87 X10*6/uL (4.60-5.80); Red Cell Distribution Width 12.7 % (11.0-16.0); White Blood Count 4.8 X10*3/uL (4.8-10.8)
[2024-07-19 10:38] LABS: Alanine Aminotransferase 18 U/L (0-40); Albumin Level 3.8 g/dL (3.5-5.0); Alkaline Phosphatase 74 U/L (39-117); Anion Gap 12 (12-20); Aspartate Amino Transferase 26 U/L (5-37); Bilirubin Total 0.5 mg/dL (0.0-1.0); Blood Urea Nitrogen 40 mg/dL (9-16); Calcium 9.5 mg/dL (8.4-10.2); Carbon Dioxide 27 mmol/L (22-29); Chloride 105 mmol/L (96-108); Estimated Glomerular Filt Rate 45; Glucose Random 92 mg/dL (60-115); Potassium 4.5 mmol/L (3.3-5.1); Sodium 139 mmol/L (135-145); Total Protein 7.3 g/dL (6.5-8.0)
[2024-07-25 16:08] LABS: Parathyroid Hormone Related Pr 12 pg/mL (11-20)
== END 2024-07-19 09:54 | disposition home or self-care (01) ==
LOC: HO.LAB 09:53
PROVIDERS: PCP Internal Medicine; Visit Provider Internal Medicine Hypertension Specialist
DX: N18.31 Chronic kidney disease, stage 3a (principal)
CPT/HCPCS: 36415; 80053; 83519; 85025

== ENCOUNTER 2024-07-26 10:12 | Outpatient (AMB) | payer MEDICARE, SELFPAY ==
[2024-07-26 10:26] VITALS: BP 126/52; BMI 25.8
--- NOTE | 2024-07-26 10:26 | HO.NEPHOV_ITS ---
Vital Signs 07/26/24 10:26 Height 5 ft 8 in Weight 170 lb BMI 25.8 BP 126/52 L Blood Pressure Location Lt brachial Position Sitting Intake Visit Reasons: CKD/ Conf Clinical Psychologist Private Practice Required: No Accompanied by: Self / Same As Patient Allergies oxycodone Allergy (Unknown, Verified 07/26/24 10:28) hives aspirin Adverse Reaction (Intermediate, Verified 07/26/24 10:28) bleeding Medication List - Last Reconciled 07/26/24 by Félix Moreno MD calcium carbonate 500 mg PO DAILY PRN carbamide peroxide 6.5% (Debrox) 5 drps otic (ears) DAILY PRN cyanocobalamin (vitamin B-12) 250 mcg PO DAILY fluorouracil 5% appl topical hydrochlorothiazide 12.5 mg PO DAILY 90 days [id number] mcg (Centrum Silver Men) 1 tab PO DAILY rivaroxaban (Xarelto) 15 mg PO DAILY tamsulosin 0.4 mg PO BEDTIME 90 days triamcinolone acetonide 0.5% 1 appl topical BID HPI Comments Details: 88-year-old man with a history of longstanding hypertension and chronic kidney disease. He has a history of a renal mass status post cryoablation. From renal standpoint is doing very well. No urine symptoms No hematuria. No shortness of breath 08/21 ;Recently in ER and diagnosed with cellulitis - left foot ;s/p Cephalexin 01/23/24: Doing about the same. Nonew issues. Seen by 07/26/24 Overall doing well. Still with increased frequency- about 2 x at night No hematuria PFSH Medical History (Updated 02/29/24 @ 10:04 by PENNY Santiago) Cold intolerance Retrognathia COVID-19 vaccine series completed History of blood transfusion PAF (paroxysmal atrial fibrillation) SSS (sick sinus syndrome) Blood type O+ Atrial fibrillation History of cataract Pulmonary nodule CKD (chronic kidney disease) History of gastric ulcer Loose right total knee arthroplasty Renal cancer Diverticulitis Kidney stones Erectile dysfunction Psoriasis Osteoarthritis BPH (benign prostatic hyperplasia) Neoplasm of right kidney Pacemaker Surgical History History of skin cancer Hx of cataract surgery History of prostate surgery H/O lithotripsy Hx of tonsillectomy History of esophagogastroduodenoscopy (EGD) History of bilateral cataract extraction History of total right knee replacement History of total left knee replacement Family History Father No problems noted. Mother Diabetes Cancer Son No problems noted. Son No problems noted. Social History Housing: House Alcohol intake: never Patient Tobacco Use Status: Never used Tobacco e-Cigarette/Vaping Use: Never Used Second Hand Smoke Exposure: No Advance Directives Date on File: 12/08/20 service: No Current occupational status: retired Cognitive needs: Yes Hearing needs: Yes Vision needs: Yes Physical Exam Vital Signs: Last Vital Signs BP 126/52 L 07/26/24 10:26 BMI result Body Mass Index 25.8 Const General: comfortable; No acute distress Orientation/consciousness: patient oriented x3 Eyes General: appearance normal, both eyes and all related structures Visual Brothers: normal visual brothers by confrontation Neck Neck: Yes supple and Yes no JVD Resp Effort & Inspection: normal respiratory effort and respiratory effort not decreased Auscultation: rhonchi Cardio Palpation: no palpable S3 and no palpable S4 Heart sounds: no rubs GI Inspection: Yes normal to inspection Palpation (GI): Soft to palpation Percussion: Yes normal to percussion Auscultation: normal bowel sounds General: Yes no CVA tenderness Back/Spine/Pelvis Back: no CVA tenderness Skin General skin exam: no petechiae and no purpura Neuro General: patient oriented x3 and no focal motor deficits Extrem General: No clubbing and No edema Results Reviewed Nephrology Results: Hgb 12.5 g/dl (14.0-18.0) L 07/19/24 WBC 4.8 X10*3/uL (4.8-10.8) 07/19/24 Plt Count 149 X10*3/uL (160-400) L 07/19/24 Sodium 139 mmol/L (135-145) 07/19/24 Potassium 4.5 mmol/L (3.3-5.1) 07/19/24 Chloride 105 mmol/L (96-108) 07/19/24 Carbon Dioxide 27 mmol/L (22-29) 07/19/24 BUN 40 mg/dL (9-16) H 07/19/24 Creatinine 1.46 mg/dL (0.5-1.4) H 07/19/24 Calcium 9.5 mg/dL (8.4-10.2) 07/19/24 PTH Intact 44.9 pg/mL (8.7-77.1) 01/16/24 Assessment & Plan Assessment & Plan (1) Chronic kidney disease, stage 3a: Code(s): N18.31 - Chronic kidney disease, stage 3a Category: Medical (2) Essential hypertension: Code(s): I10 - Essential (primary) hypertension Category: Medical (3) Neoplasm of right kidney: Comment: s/p cryoablation right renal tumor Dr. Tatum 04/14/2016 Code(s): D49.511 - Neoplasm of unspecified behavior of right kidney Category: Medical Plan Master has stage III chronic disease in a setting of longstanding hypertension. Overall renal function stable with a creatinine of around 1.4 mg/dL. to 1.6 mg/dL Goal is to slow the progression of renal disease Continue to avoid nephrotoxic agents. Maintain blood pressure less than 130/80. He has a h/o renal mass. Status post cryoablation in the past. Continue with Urology follow-up. Mild anemia- stable No evidence of SHPT Well controlled HTN No changes were made today Keep I >O and increase PO fluid intake Orders: Orders Basic Metabolic Panel 6 Months N18.31 - Chronic kidney disease, stage 3a Complete Blood Count no Diff 6 Months N18.31 - Chronic kidney disease, stage 3a Coding Level of Care Code Est Pt Level 4 (65078) Diagnoses Chronic kidney disease, stage 3a N18.31 Essential hypertension I10 Neoplasm of right kidney D49.511
--- OUTSIDE RECORDS SUMMARY | 2024-07-26 11:47 | XMS_ITS | Clinical Summary ---
Author Organization [facility] Address [address] [place] [address] Phone Care Team Providers Care Machine Tool Technician Instructor Name Role Phone Félix Moreno MD Primary Care Provider Unavail able Allergies No known active allergies Medications Multiple Vitamin (Multivitamin) tablet Take 1 tablet by mouth 1 (one) time each day Active cyanocobalamin (VITAMIN B-12) 100 MCG tablet Take 1 tablet by mouth 1 (one) time each day Active hydroCHLOROthia zide (MICROZIDE) 12.5 MG capsule Take 1 capsule by mouth 1 (one) time each day Active tamsulosin (FLOMAX) 0.4 MG 24 hr capsule Take 1 capsule by mouth at bed time Active Xarelto 15 MG tablet Take 15 mg by mouth 1 (one) time each day 07/30/2020 Active ketoconazole (NIZORAL) 2 % shampoo 10/26/2022 Active Active Problems Problem Noted Date Diagnosed Date Chronic kidney disease 08/29/2020 Hypertensive heart disease without heart failure 08/29/2020 Family History Medical History Relation Comments Cancer Mother Diabetes Mother Relation Status Comments Father Mother Social History Tobacco Use Types Packs/Day Years Used Date Smoking Tobacco: Never Smokeless Tobacco: Never Tobacco Cessation:Counseling Given: Not Answered Alcohol Use Standard Drinks/Week Comments No 0 (1 standard drink = 0.6 oz pur e alcohol) Sex and Gender Information Value Date Recorded Sex Assigned at Not on file Legal Sex Male 4:56 PM EST Gender Identity Not on file Sexual Orientation Not on file Last Filed Vital Signs Vital Sign Reading Time Taken Comments Blood Pressure 118/60 11/18/2022 3:16 PM EDT Pulse 72 11/18/2022 3:16 PM EDT Temperature - - Respiratory Rate - - Oxygen Saturation 97% 11/18/2022 3:16 PM EDT Inhaled Oxygen Concentration - - Weight 74.4 kg (164 lb) 11/18/2022 3:16 PM EDT Height 182.9 cm (6') 11/18/2022 3:16 PM EDT Body Mass Index 22.24 11/18/2022 3:16 PM EDT Plan of Treatment Health Maintenance Due Date Last Done Comments Pneumococcal Vaccine: 65+ Ye ars (1 of 2 - PCV) 1941 Influenza Vaccine (#1) 2024 02/27/2022 Hepatitis B Vaccine Aged Out No longe r eligible based on patient's age to complete this topic Insurance [facility] Care Teams Machine Tool Technician Instructor Relationship Specialty Start Date End Date Félix Moreno MD PCP - General Nephrology 09/03/21
== END 2024-07-26 10:37 | disposition home or self-care (01) ==
PROVIDERS: PCP Internal Medicine; Visit Provider Internal Medicine Hypertension Specialist
DX: N18.31 Chronic kidney disease, stage 3a (principal); I10 Essential (primary) hypertension; D49.511 Neoplasm of unspecified behavior of right kidney
CPT/HCPCS: 99214

== ENCOUNTER → 2024-07-26 10:12 | Outpatient (BNVA) | payer MEDICARE, SELFPAY | PROVIDERS: PCP Internal Medicine; Visit Provider Internal Medicine Hypertension Specialist | DX: I12.9 Hypertensive chronic kidney disease with stage 1 through stage 4 chronic kidney disease, or unspecified chronic kidney disease (principal); N18.31 Chronic kidney disease, stage 3a; D49.511 Neoplasm of unspecified behavior of right kidney | CPT/HCPCS: 99212 ==

== ENCOUNTER 2024-08-06 12:52 | Outpatient (AMB) | payer BC, SELFPAY ==
[2024-08-06 13:15] VITALS: BP 124/52; PULSE 58; BMI 25.9
--- NOTE | 2024-08-06 13:15 | A.OFFVIS_ITS ---
Vital Signs 08/06/24 13:15 Height 5 ft 8 in Weight 170 lb 3.15 oz BMI 25.9 BP 124/52 L Blood Pressure Location Lt brachial Position Sitting Pulse 58 Pulse Source Palpation Intake Visit Reasons: 6 mth fu w/ medtronic Chicken Handler Required: No Attendant Self Service Store: Attendant Self Service Store Present Allergies oxycodone Allergy (Unknown, Verified 08/06/24 13:17) hives aspirin Adverse Reaction (Intermediate, Verified 08/06/24 13:17) bleeding Medication List - Last Reconciled 08/06/24 by Capri Gallardo NP-C calcium carbonate 500 mg PO DAILY PRN carbamide peroxide 6.5% (Debrox) 5 drps otic (ears) DAILY PRN cyanocobalamin (vitamin B-12) 250 mcg PO DAILY fluorouracil 5% appl topical hydrochlorothiazide 12.5 mg PO DAILY 90 days [id number] mcg (Centrum Silver Men) 1 tab PO DAILY rivaroxaban (Xarelto) 15 mg PO DAILY tamsulosin 0.4 mg PO BEDTIME 90 days triamcinolone acetonide 0.5% 1 appl topical BID HPI HPI 6 mth fu w/ medtronic: Details: Master is an 88-year-old male with past medical history of hypertension, obstructive sleep apnea which is untreated, paroxysmal atrial fibrillation, sick sinus syndrome status post dual-chamber pacemaker placement who presents for follow-up. Today he reports that he has had no changes to his health since his last visit in January. He reports lack of energy, body aches and pains and feels cold much of the time. He has no localized chest area discomfort. No concerning ronald rtness of breath, palpitations, lightheadedness, presyncope, syncope, falls. No PND, orthopnea or edema. He is taking his meds as directed. He does only light activities around the house. No recent nosebleeds. He says he typically will get nosebleeds when the seasons change, in the spring and fall. is present. [facility] Medical History Cold intolerance Retrognathia COVID-19 vaccine series completed History of blood transfusion PAF (paroxysmal atrial fibrillation) SSS (sick sinus syndrome) Blood type O+ Atrial fibrillation History of cataract Pulmonary nodule CKD (chronic kidney disease) History of gastric ulcer Loose right total knee arthroplasty Renal cancer Diverticulitis Kidney stones Erectile dysfunction Psoriasis Osteoarthritis BPH (benign prostatic hyperplasia) Neoplasm of right kidney Pacemaker Surgical History History of skin cancer Hx of cataract surgery History of prostate surgery H/O lithotripsy Hx of tonsillectomy History of esophagogastroduodenoscopy (EGD) History of bilateral cataract extraction History of total right knee replacement History of total left knee replacement Family History Father No problems noted. Mother Diabetes Cancer Son No problems noted. Son No problems noted. Social History Housing: House Alcohol intake: never Patient Tobacco Use Status: Never used Tobacco e-Cigarette/Vaping Use: Never Used Second Hand Smoke Exposure: No Advance Directives Date on File: 12/08/20 service: No Current occupational status: retired Cognitive needs: Yes Hearing needs: Yes Vision needs: Yes Review of Systems Const Details: feels cold all the time All systems reviewed & are unremarkable except as noted in HPI and below ENT Denies dizziness Card Denies chest pain, Denies chest pain at rest, Denies chest pain with activity, Denies rapid heart rate, Denies pedal edema, Denies edema, Denies leg edema, Denies lightheadedness, Denies palpitations, Denies dyspnea, Denies dyspnea on exertion and Denies orthopnea Resp Denies cough, Denies dyspnea and Denies dyspnea on exertion GI Denies hematochezia and Denies change in stool character Musc Denies abnormal gait, Denies limited range of motion, Denies muscle cramps, Denies muscle weakness, Denies numbness, Denies radiating pain into limb, Denies stiffness and Denies tingling Neuro Denies abnormal gait, Denies dizziness, Denies numbness and Denies tingling Endo Denies palpitations Physical Exam Vital Signs: Last Vital Signs Pulse 58 08/06/24 13:15 BP 124/52 L 08/06/24 13:15 BMI result Body Mass Index 25.9 Const General: cooperative, healthy appearing, comfortable and no acute distress Orientation/consciousness: patient oriented x3 Neck Neck: Yes normal visual inspection Resp Effort & Inspection: normal respiratory effort Auscultation: clear to auscultation bilaterally, no rales, no rhonchi and no wheezes Cardio Rate: regular rate Rhythm: regular rhythm Heart sounds: S1 normal heart sound present, S2 normal heart sound present, no murmurs and no rubs Neuro General: patient oriented x3 Extrem General: Yes normal to inspection, No no pedal edema and No calf tenderness Psych Appearance: grossly normal Mental Status: mental status grossly normal Speech and movement: Normal speech and movement present Office Procedures Cardiac Device Check Cardiac Device Check Details: Medtronic dual-chamber pacemaker interrogation today, battery 7.4 years, DDD mode, low rate 60, AF 13.9% of the time, a paced 35%, V paced 97.7%, right atrial threshold 0.5 volts at 0.4 milliseconds, RV threshold 1 volt at 0.4 milliseconds [id number] Cardiac Device Check, pacemaker dual lead Procedure code (CPT) selection complete Assessment & Plan Assessment & Plan (1) PAF (paroxysmal atrial fibrillation): Code(s): I48.0 - Paroxysmal atrial fibrillation Category: Medical Plan: History of asymptomatic paroxysmal atrial fibrillation. Last echo 02/02/2023 showed EF 50-55%, mild LVH mildly dilated left atrium, [id number] MR. Device interrogation today shows burden 13.9%. He is not requiring rate slowing medications. He is on Xarelto for anticoagulation, renal dose. Recent labs show creatinine 1.46 with calculated creatinine clearance 37.41. No bleeding issues at this time. 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 Interrogation done today shows device is functioning normally. Battery 7.4 years. Remote monitoring in use. Next office interrogation due in 6 months. (3) SSS (sick sinus syndrome): Code(s): I49.5 - Sick sinus syndrome Category: Medical Plan: As above (4) Essential hypertension: Code(s): I10 - Essential (primary) hypertension Category: Medical Plan: Normal range at this time. No medication changes made. Continue hydrochlorothiazide (5) SHORTY (obstructive sleep apnea): Code(s): G47.33 - Obstructive sleep apnea (adult) (pediatric) Category: Medical Plan: Reported history of obstructive sleep apnea, mild. Not using CPAP and not inte rested. Plan Time spent on chart review, documentation, interview and assessment Coding Level of Care Code Est Pt Level 4 (46112) Complex EM visit Add On G2211 Diagnoses PAF (paroxysmal atrial fibrillation) I48.0 Pacemaker Z95.0 SSS (sick sinus syndrome) I49.5 Essential hypertension I10 SHORTY (obstructive sleep apnea) G47.33 CPT Codes Cardiac Device Check - Cardiac Device 2: [id number] Cardiac Device Check, pacemaker dual lead ([id number]) Time Spent (min) 28
--- OUTSIDE RECORDS SUMMARY | 2024-08-06 14:24 | XMS_ITS | Clinical Summary ---
Author Organization [facility] Address [address] [place] [address] Phone Care Team Providers Care Metal Extrusion Supervisor Name Role Phone Félix Moreno MD Primary [...] patient's age to complete this topic Insurance [facility] Care Teams Metal Extrusion Supervisor Relationship Specialty Start Date End Date Félix Moreno MD PCP - General Nephrology 09/03/21
== END 2024-08-06 13:51 | disposition home or self-care (01) ==
PROVIDERS: PCP Internal Medicine; Visit Provider Nurse Practitioner Family
DX: I48.0 Paroxysmal atrial fibrillation (principal); Z95.0 Presence of cardiac pacemaker; I49.5 Sick sinus syndrome; I10 Essential (primary) hypertension; G47.33 Obstructive sleep apnea (adult) (pediatric)
CPT/HCPCS: 93280; 99214

== ENCOUNTER → 2024-08-21 23:59 | Outpatient (BNV) | payer BC, SELFPAY ==
--- NOTE | 2024-08-29 21:15 | MHC.OFFVIS ---
Intake Visit Reasons: Remote device check- Medtronic Allergies oxycodone Allergy (Unknown, Verified 08/29/24 09:40) hives aspirin Adverse Reaction (Intermediate, Verified 08/29/24 09:40) bleeding PFSH Medical History (Updated 08/29/24 @ 10:16 by Devendra Comer MD) Cold intolerance Retrognathia COVID-19 vaccine series completed History of blood transfusion PAF (paroxysmal atrial fibrillation) SSS (sick sinus syndrome) Blood type O+ Atrial fibrillation History of cataract Pulmonary nodule CKD (chronic kidney disease) History of gastric ulcer Loose right total knee arthroplasty Renal cancer Diverticulitis Kidney stones Erectile dysfunction Psoriasis Osteoarthritis BPH (benign prostatic hyperplasia) Neoplasm of right kidney Pacemaker Surgical History (Updated 08/29/24 @ 09:45 by PENNY Cisneros) History of tooth extraction History of skin cancer Hx of cataract surgery History of prostate surgery H/O lithotripsy Hx of tonsillectomy History of esophagogastroduodenoscopy (EGD) History of bilateral cataract extraction History of total right knee replacement History of total left knee replacement Family History Father No problems noted. Mother Diabetes Cancer Son No problems noted. Son No problems noted. Social History Housing: House Alcohol intake: never Patient Tobacco Use Status: Never used Tobacco e-Cigarette/Vaping Use: Never Used Second Hand Smoke Exposure: No Advance Directives Date on File: 12/08/20 service: No Current occupational status: retired Cognitive needs: Yes Hearing needs: Yes Vision needs: Yes Office Procedures Cardiac Device Check Cardiac Device Check Details: Date of service- 08/21/2024 ; Battery life >6 years; normal lead parameters; AP 48%; DIRECTOR OF SOCIAL SERVICES 99%; time in AT/AF 5%. Overall normal device function. 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
== END ==
PROVIDERS: PCP Internal Medicine; Visit Provider Internal Medicine
DX: I49.5 Sick sinus syndrome (principal); I48.0 Paroxysmal atrial fibrillation; Z95.0 Presence of cardiac pacemaker
CPT/HCPCS: 93294

== ENCOUNTER 2024-08-29 09:34 | Outpatient (AMB) | payer BC, SELFPAY ==
--- NOTE | 2024-08-29 09:39 | MHC.PC.OV ---
Vital Signs 08/29/24 09:40 08/29/24 10:08 Height 5 ft 8 in Weight 168 lb 6 oz BMI 25.6 BP 100/70 124/60 Blood Pressure Location Lt brachial Lt brachial Position Sitting Sitting Temp 97.7 F Temp Source Temporal Artery Scan Intake Visit Reasons: a fib, BPH, Intake Note: Patient is here to follow up on Afib, BPH. Medical Office Professional Instructor Required: No Personnel Manager: Not Required per policy Accompanied by: Self / Same As Patient Allergies oxycodone Allergy (Unknown, Verified 08/29/24 09:40) hives aspirin Adverse Reaction (Intermediate, Verified 08/29/24 09:40) bleeding Medication List - Last Reconciled 08/29/24 by Devendra Comer MD calcium carbonate 500 mg PO DAILY PRN carbamide peroxide 6.5% (Debrox) 5 drps otic (ears) DAILY PRN cyanocobalamin (vitamin B-12) 250 mcg PO DAILY fluorouracil 5% appl topical hydrochlorothiazide 12.5 mg PO DAILY 90 days [id number] mcg (Centrum Silver Men) 1 tab PO DAILY rivaroxaban (Xarelto) 15 mg PO DAILY tamsulosin 0.4 mg PO BEDTIME 90 days triamcinolone acetonide 0.5% 1 appl topical BID Tobacco use date assessed: 08/29/24 Fall risk assessment: No Falls in past year Last assessed Fall Risk: 08/29/24 Dental Screening Dental Screen Date: 08/29/24 Did you have a dental visit in the last 12 months?: Yes Did you have a dental problem in the last 6 months where you did not have access to dental care?: No Was dental information given to patient?: Patient has dentist [facility] Medical History (Updated 08/29/24 @ 10:16 by Devendra Comer MD) Cold intolerance Retrognathia COVID-19 vaccine series completed History of blood transfusion PAF (paroxysmal atrial fibrillation) SSS (sick sinus syndrome) Blood type O+ Atrial fibrillation History of cataract Pulmonary nodule CKD (chronic kidney disease) History of gastric ulcer Loose right total knee arthroplasty Renal cancer Diverticulitis Kidney stones Erectile dysfunction Psoriasis Osteoarthritis BPH (benign prostatic hyperplasia) Neoplasm of right kidney Pacemaker Surgical History (Updated 08/29/24 @ 09:45 by PENNY Cisneros) History of tooth extraction History of skin cancer Hx of cataract surgery History of prostate surgery H/O lithotripsy Hx of tonsillectomy History of esophagogastroduodenoscopy (EGD) History of bilateral cataract extraction History of total right knee replacement History of total left knee replacement Family History Father No problems noted. Mother Diabetes Cancer Son No problems noted. Son No problems noted. Social History Housing: House Alcohol intake: never Patient Tobacco Use Status: Never used Tobacco e-Cigarette/Vaping Use: Never Used Second Hand Smoke Exposure: No Advance Directives Date on File: 12/08/20 service: No Current occupational status: retired Cognitive needs: Yes Hearing needs: Yes Vision needs: Yes Questionnaire PHQ-9 Over the last 2 weeks, how often have you been bothered by any of the following problems? 1. Little interest or pleasure in doing things: not at all 2. Feeling down, depressed, or hopeless: not at all 3. Trouble falling or staying asleep, or sleeping too much: not at all 4. Feeling tired or having little energy: not at all 5. Poor appetite or overeating: not at all 6. Feeling bad about yourself - or that you are a failure or have let yourself or your family down: not at all 7. Trouble concentrating on things, such as reading the newspaper or watching television: not at all 8. Moving or speaking so slowly that other people could have noticed. Or the opposite - being so fidgety or restless that you have been moving around a lot more than usual: not at all 9. Thoughts that you would be better off or of hurting yourself in some way: not at all Total score: 0 Depression Screening Interpretation: Negative Depression Screening Done: Yes Source: Developed by Drs. Ronan Johnston, Malu Yanes, Josse Tamayo and colleagues, with an educational todd from Copyright Agent. Thrive Questionnaire Date Thrive assessed: 08/29/24 I am a: Patient What is your living situation today?: I have a steady place to live Within the past 12 months, did the food you bought not last and you didn't have the money to get more?: Never true Within the past 12 months, did you worry whether your food would run out before you got money to buy more?: Never true Do you have trouble paying for medicines?: No Do you have trouble getting transportation to medical appointments?: No Do you have trouble paying your heating and electricity bill?: No Do you have trouble taking care of your child, family member or friend?: No Do you have trouble with day-to-day activities such as bathing, preparing meals, shopping, managing finances, etc.?: No Are you currently unemployed and looking for a job?: No Are you interested in more education?: No Please select the resources that you would like help with: None Currently or been in a relationship where the following occur: No concerns reported THRIVE Score: 0 AUDIT C Alcohol Use Questionnaire (AUDIT-C) 1. How often do you have a drink containing alcohol?: Never Total Score: 0 CALI-7 AMB Questionnaire CALI-7 Date CALI - 7 assessed: 08/29/24 Feeling nervous, anxious, or on edge: 0 = Not at all Not being able to stop or control worryin = Not at all Worrying too much about different things: 0 = Not at all Trouble relaxin = Not at all Being so restless that it is hard to sit still: 0 = Not at all Becoming easily annoyed or irritable: 0 = Not at all Feeling afraid as if something awful might happen: 0 = Not at all Total CALI-7 score (0-4 normal; 5-9 mild; 10-14 moderate; 15-21 severe): 0 Source: Developed by Drs. Ronan Johnston, Malu Yanes, Josse Tamayo and colleagues, with an educational todd from Copyright Agent. Physical exam (Primary Care) Vital Signs: Last Vital Signs Temp 97.7 F 08/29/24 09:40 BP 124/60 08/29/24 10:08 BMI result Body Mass Index 25.6 Tobacco/Smoking Status: Tobacco use Status Tobacco use date assessed 08/29/24 08/29/24 09:47 Patient Tobacco Use Status Never used Tobacco 08/29/24 09:47 e-Cigarette/Vaping Use Never Used 08/29/24 09:47 PHQ-9: PHQ-9 Score PHQ-9: Total score 0 08/29/24 10:08 Depression Screening Interpretation: Negative Thrive Assessment: Date of Thrive Assessment Date Thrive assessed 08/29/24 08/29/24 09:47 Currently or been in a relationship where the following occur: No concerns reported Const General: alert; No acute distress Eyes Conjunctivae: conjunctivae normal Resp Auscultation: clear to auscultation bilaterally Cardio Rate: regular rate Rhythm: regular rhythm GI Inspection: Yes normal to inspection Extrem General: Yes normal to inspection and No edema Coding Level of Care Code Est Pt Level 4 (51107) Complex EM visit Add On G2211 Diagnoses Stage 3b chronic kidney disease N18.32 Chronic kidney disease stage: stage 3 (moderate) Chronic kidney disease stage 3 subtype: stage 3b (GFR 30-44) SSS (sick sinus syndrome) I49.5 PAF (paroxysmal atrial fibrillation) I48.0 Benign prostatic hyperplasia with urinary frequency N40.1; R35.0 Lower urinary tract symptom detail: urinary frequency Lower urinary tract symptom presence: symptoms present Essential hypertension I10 Low back pain M54.50 Assessment & Plan Assessment & Plan (1) CKD (chronic kidney disease): Comment: St 3, follows renal Stable at 08/2020 with 6 mo f/u Code(s): N18.9 - Chronic kidney disease, unspecified Category: Medical Qualifiers: Chronic kidney disease stage: stage 3 (moderate) Chronic kidney disease stage 3 subtype: stage 3b (GFR 30-44) Qualified Code(s): N18.32 - Chronic kidney disease, stage 3b Plan: Patient is being followed up by Nephrology stable control blood pressure, avoid NSAIDs keep well hydrated (2) SSS (sick sinus syndrome): Code(s): I49.5 - Sick sinus syndrome Category: Medical Plan: Patient follows up with Cardiology and pacemaker check routinely. (3) PAF (paroxysmal atrial fibrillation): Code(s): I48.0 - Paroxysmal atrial fibrillation Category: Medical Plan: Continue with anticoagulation with Xarelto and continue to monitor renal function. (4) BPH (benign prostatic hyperplasia): Comment: [employer] laser enucleation of the prostate Dr. Ch November 2020 Code(s): N40.0 - Benign prostatic hyperplasia without lower urinary tract symptoms Category: Medical Qualifiers: Lower urinary tract symptom detail: urinary frequency Lower urinary tract symptom presence: symptoms present Qualified Code(s): N40.1 - Benign prostatic hyperplasia with lower urinary tract symptoms; R35.0 - Frequency of micturition Plan: On tamsulosin once a day (5) Essential hypertension: Code(s): I10 - Essential (primary) hypertension Category: Medical Plan: On hydrochlorothiazide 12.5 mg once a day (6) Low back pain: Code(s): M54.50 - Low back pain, unspecified Category: Medical Plan History of Present Illness The patient is an 88-year-old male presenting with a follow-up for chronic medical conditions management. He has a history of sick sinus syndrome with a pacemaker since 2019, chronic kidney disease stage IIIA, atrial fibrillation, benign prostatic hyperplasia, a right renal tumor treated with cryoablation in 2015, hypertension, and obstructive sleep apnea. The patient regularly follows up with cardiology for device checks. His echocardiogram in 2022 revealed normal ejection fraction with a dilated left atrium and mild to moderate mitral regurgitation. He is currently on Xarelto therapy. Renal function has been stable, monitored by nephrology, with instructions to avoid NSAIDs and maintain hydration. Anemia remains stable with a hemoglobin of 12.5 g/dL and hematocrit of 36.3%. He reports persistent cold intolerance likely related to anemia. Blood pressure is well controlled at 124/60 mmHg, with hydrochlorothiazide as part of his regimen. He currently struggles with nocturia and disrupted sleep. Lower back pain is a concern, potentially linked to a previous spinal fusion. Mild thrombocytopenia was noted, with normal electrolyte and liver function tests. Health Maintenance - Continued hydration for chronic kidney disease management - Regular blood pressure monitorin/60 mmHg at last check - Anticoagulation therapy review, specifically Xarelto continuance - Discussion on hydration and avoidance of NSAIDs for kidney protection - Routine follow-up for atrial fibrillation and pacemaker function - Referral for kidney function re-evaluation in six months Social History - Reports difficulty maintaining adequate hydration - Experiences nocturia, resulting in sleep disruption - Uses a leg compression device to manage leg swelling Review of Systems - Constitutional: Reports feeling persistently cold for years - Genitourinary: Reports frequent urination and nocturia - Musculoskeletal: Reports lower back pain; history of spinal fusion - Cardiovascular: Denies chest pain, palpitations, or syncope Physical Exam - Vital Signs- Blood pressure 124/60 mmHg Results - Labs: Hemoglobin 12.5 g/dL, Hematocrit 36.3%, Creatinine 1.46 mg/dL, BUN 40 mg/dL indicating dehydration - Tests: Echocardiogram in 2022 with normal ejection fraction, dilated left atrium, mild to moderate mitral regurgitation Plan I will continue the current regimen of Xarelto and hydrochlorothiazide. The patient should maintain adequate hydration and avoid NSAIDs to support kidney function. His anemia will be monitored. Blood pressure management is satisfactory, and no changes are currently needed. We will evaluate lower back pain with a lumbar spine x-ray and potentially refer for physical therapy. The patient is advised to manage nocturia by monitoring fluid intake and incorporate heat therapy for back discomfort. A follow-up blood test for kidney function is planned in six months to reassess his condition. Patient was informed and verbally consented to the use of an ambient scribe for clinic note documentation during this visit. Discussion Notes I discussed with the patient the importance of continuing his prescribed medications, focusing on maintaining hydrated to prevent exacerbation of his kidney disease. The benefits of adhering to his Xarelto regimen to manage atrial fibrillation and prevent thromboembolic events were highlighted. I explained the reasons for avoiding NSAIDs given his chronic kidney disease status. The patient was advised on lifestyle modifications to manage nocturia by adjusting fluid intake timing. The management of anemia was reviewed with an understanding that it remains stable. I explained the utility of the leg compression device for swelling and encouraged its use. Physical therapy and imaging options were discussed regarding the management of his lower back pain, with emphasis on non-pharmacologic approaches due to his current medical status. Patient Instructions - Continue taking your medications as prescribed. - Increase water intake to maintain adequate hydration. - Avoid NSAIDs as they can harm your kidneys. - Wear thermals and use heat therapy for your back discomfort. - Monitor fluid intake to manage nocturia. - Schedule a follow-up blood test for kidney function in six months. - Use your leg compression device regularly to reduce swelling. Orders: Orders Thyroid Stimulating Hormone 5 Months N18.31 - Chronic kidney disease, stage 3a Ferritin 5 Months N18.31 - Chronic kidney disease, stage 3a PT Evaluation and Treatment Today M54.50 - Low back pain, unspecified XR lumbar spine 2-3V Today M54.50 - Low back pain, unspecified Rubella IgG Antibody Today M54.50 - Low back pain, unspecified, Z02.0 - Encounter for examination for admission to [facility] Mumps Virus IgG Antibody Today M54.50 - Low back pain, unspecified, Z02.0 - Encounter for examination for admission to [facility] Vitamin D 25-OH Total Today M54.50 - Low back pain, unspecified Hepatitis B,C Profile Today M54.50 - Low back pain, unspecified, R79.89 - Other specified abnormal findings of blood chemistry Complete Blood Count Auto Diff 5 Months N18.31 - Chronic kidney disease, stage 3a Comprehensive Met. Panel 5 Months N18.31 - Chronic kidney disease, stage 3a Free T4 (Free Thyroxine) 5 Months N18.31 - Chronic kidney disease, stage 3a Lipid Panel 5 Months E78.00 - Pure hypercholesterolemia, unspecified, N18.31 - Chronic kidney disease, stage 3a Vitamin B12 and Folate 5 Months N18.31 - Chronic kidney disease, stage 3a Vitamin D 25-OH Total 5 Months N18.31 - Chronic kidney disease, stage 3a Reticulocyte Count 5 Months N18.31 - Chronic kidney disease, stage 3a IRON PROFILE 5 Months N18.31 - Chronic kidney disease, stage 3a UA w Microscopic 5 Months N18.31 - Chronic kidney disease, stage 3a Rubeola IgG (Measles) Today M54.50 - Low back pain, unspecified, Z02.0 - Encounter for examination for admission to [facility]
[2024-08-29 09:40] VITALS: BP 100/70; TEMP 36.5; BMI 25.6
[2024-08-29 10:08] VITALS: BP 124/60
--- OUTSIDE RECORDS SUMMARY | 2024-08-29 10:43 | XMS_ITS | Clinical Summary ---
Author Organization [facility] Address [address] [place] [address] Phone Care Team Providers Care Test Skein Winder Name Role Phone Félix Moreno MD Primary [...] patient's age to complete this topic Insurance [facility] Care Teams Test Skein Winder Relationship Specialty Start Date End Date Félix Moreno MD PCP - General Nephrology 09/03/21
== END 2024-08-29 10:31 | disposition home or self-care (01) ==
LOC: HO.HMCH 09:35
PROVIDERS: PCP Internal Medicine; Visit Provider Internal Medicine
DX: N18.32 Chronic kidney disease, stage 3b (principal); I49.5 Sick sinus syndrome; I48.0 Paroxysmal atrial fibrillation; N40.1 Benign prostatic hyperplasia with lower urinary tract symptoms; R35.0 Frequency of micturition; I10 Essential (primary) hypertension; M54.50 Low back pain, unspecified

== ENCOUNTER 2024-08-31 09:47 | Outpatient (REF) | payer BC, SELFPAY ==
--- NOTE | ~2024-08-31 | XR_ITS ---
EXAMINATION: XR LUMBOSACRAL SPINE CLINICAL INFORMATION: M54.50 - Low back pain, unspecified COMPARISON: None available. TECHNIQUE: Three views of the lumbosacral spine. FINDINGS: There is a mild to moderate right convex thoracolumbar scoliosis, apex at L1. There is a mild rotatory component. Normal lordosis. There is a 4 mm degenerative anterolisthesis of L4 on L5. Alignment is otherwise anatomic. No fractures, compression deformities, or suspicious bone lesions. Severe disc degeneration spanning L2-S1, with sclerosis of the endplates, disc osteophytic spurring, and disc vacuum phenomenon at L4-5 and L5-S1. Normal facet alignment. Hypertrophic degenerative facet changes present spanning L3-S1. There are vascular calcifications in the soft tissues. Amorphous calcification in the right upper quadrant also noted, uncertain etiology. This may relate to a renal lesion which has been cryoablated. XR/XR lumbar spine 2-3V IMPRESSION: 1. 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 No acute bony findings. Electronically signed by: Narinder Avalos MD 09/03/2024 10:32 AM EDT
--- OUTSIDE RECORDS SUMMARY | 2024-08-31 10:58 | XMS_ITS | Clinical Summary ---
Author Organization [facility] Address [address] [address] [place] [address] Phone Care Team Providers Care Wastewater Manager Name Role Phone Félix Moreno MD Primary [...] patient's age to complete this topic Insurance [facility] Care Teams Wastewater Manager Relationship Specialty Start Date End Date Félix Moreno MD PCP - General Nephrology 09/03/21
== END 2024-08-31 09:48 | disposition home or self-care (01) ==
LOC: HO.XRAY 09:47
PROVIDERS: PCP Internal Medicine; Visit Provider Internal Medicine
DX: M54.50 Low back pain, unspecified (principal)
CPT/HCPCS: 72100